=== PATIENT | female | born 1955 | race Caucasian/White ===

== ENCOUNTER → 2018-01-06 13:43 | Outpatient (POV) | payer MEDICAID, SELFPAY | PROVIDERS: Visit Provider Physician Assistant Medical | DX: Z00.00 Encounter for general adult medical examination without abnormal findings (principal) ==

== ENCOUNTER → 2018-11-08 09:07 | Outpatient (POV) | payer MEDICAID, SELFPAY | PROVIDERS: Visit Provider Nurse Practitioner Acute Care | DX: Z00.00 Encounter for general adult medical examination without abnormal findings (principal) ==

== ENCOUNTER 2018-12-27 13:25 | Inpatient (IN) ==
--- NOTE | 2018-12-27 14:34 | Consult Report ---
*Admission Date: 12/27/18 *Chief complaint: Right foot cellulitis, gangrene, DM ulcer *History of present illness: Mrs. Rodriguez is a 63 DM female who came to the office for an evaluation of a toe that has been black with a wound. She states it has been like this for a month, she states the retirement has been using a cream and keeping it bandaged. She came to the ER 12/21/18, had x-rays and wound culture. She has been taking Bactrim since last week at [place]. She reports N/V/C. Review of Systems - Review of Systems Review of systems:: pertinent systems reviewed and negative unless documented below - Constitutional Reports chills, Reports fatigue - Eyes Denies loss of vision - ENT Denies abnormal hearing - *Cardiovascular Denies chest pain - *Respiratory Denies shortness of breath - *Gastrointestinal Reports nausea, Reports vomiting - *Genitourinary Denies abnormal periods - *Musculoskeletal Reports body aches, Reports numbness - Integumentary/Breasts Reports nail changes, Reports skin ulcer, Reports wounds - *Neurologic Reports tingling/numbness/burning sensations, Reports weakness - Psychiatric Denies abnormal sleep pattern - Endocrine Reports cold intolerance - Hematologic/Lymphatic Reports easy bruising [facility] History I have reviewed the patient's past medical history: Yes Medical History: Reports:: Asthma, Atherosclerotic Heart Disease, Depression, Diabetes Mellitus Type 2, Hyperlipidemia, Hypertension, MRSA, Peripheral Vascular Disease, Urinary Tract Infection *Have you ever received a pneumonia vaccine?: Yes *Have you received a flu vaccine this season?: Yes Other Medical History: Reports: Anemia Laterality Cases: Right: Other Other Surgeries: Yes: Cholecystectomy Amputation: Yes (left bka, Right great toe. ) Fractures: No - *Social History Smoking Status: Current every day smoker Tobacco Type: cigarettes Alcohol Intake: never Alcohol Intake Frequency:: other *Occupational Status:: disabled - Psychiatric History Pschychiatric History:: Reports:: Depression Family Hx:: Unable to obtain Meds Home Medications Medication Instructions Recorded Confirmed Type Insulin Lispro [HumaLOG 100 10 units SQ ACHS 06/08/18 12/27/18 History units/mL 3mL vial (SSI)] Lactobacillus acidophilus capsule 10 mg PO DAILY 12/27/18 12/27/18 History azelastine 137 mcg (0.1 %) nasal 1 spray INTRANASAL BID 12/27/18 12/27/18 History spray aerosol carvedilol 3.125 mg tablet 3.125 mg PO BID 12/27/18 12/27/18 History cetirizine 10 mg capsule 10 mg PO DAILY 12/27/18 12/27/18 History citalopram 20 mg tablet 20 mg PO DAILY 12/27/18 12/27/18 History docusate sodium 250 mg capsule 250 mg PO DAILY PRN cap 12/27/18 12/27/18 History ezetimibe 10 mg tablet 10 mg PO DAILY 12/27/18 12/27/18 History ferrous sulfate 325 mg (65 mg 325 mg PO DAILY tab 12/27/18 12/27/18 History iron) tablet fluticasone propionate 110 1 puff INHALATION BID 12/27/18 12/27/18 History mcg/actuation HFA aerosol inhaler fluticasone propionate 50 2 spray INTRANASAL DAILY 12/27/18 12/27/18 History mcg/actuation nasal spray,suspension furosemide 20 mg tablet 20 mg PO DAILY 12/27/18 12/27/18 History gabapentin 100 mg capsule 100 mg PO DAILY 12/27/18 12/27/18 History insulin glargine (U-100) 100 22 unit SQ QHS ml 12/27/18 12/27/18 History unit/mL (3 mL) subcutaneous pen lisinopril 10 mg tablet 10 mg PO DAILY 12/27/18 12/27/18 History montelukast 10 mg tablet 10 mg PO QPM 12/27/18 12/27/18 History multivitamin,os-hrtw-pswxujsl 1 tab PO DAILY 12/27/18 12/27/18 History tablet omeprazole 20 mg capsule,delayed 20 mg PO DAILY 12/27/18 12/27/18 History release simvastatin 40 mg tablet 40 mg PO QHS 12/27/18 12/27/18 History sulfamethoxazole 800 1 tab PO DAILY tab 12/27/18 12/27/18 History mg-trimethoprim 160 mg tablet Allergies Allergy/AdvReac Type Severity Reaction Status Date / Time No Known Allergies Allergy Verified 12/27/18 12:47 Exam - *Routine HEENT Exam Head: Present: normocephalic ENT: Present: mucous membranes dry - *Routine Neck Exam Absent: JVD - *Routine Respiratory Exam Absent: respiratory distress - *Routine Cardiovascular Exam Present: RRR - *Routine Abdominal Exam Present: soft, guarding - *Routine Rectal Exam Patient deferred: visual exam - *Routine Exam Patient deferred: external exam - *Routine Extremities Exam Present: edema, extremity cold to touch, amputation. Absent: pulses intact, normal capillary refill - *Routine Skin Exam Present: erythema, scars, wounds, gangrene - *Routine Neurological Exam Present: alert - Detailed Lower Extremity Exam Comments: Pulses: posterior tibial pulses not present, dorsalis pedis pulses not present. Capillary refill time delayed. Skin temp cool. Right 2nd toe black. Open ulcer noted to dorsal 2nd toe with malodor, purulence, gangrene. Left BKA. Right previous 1, 5th partial ray amputations. Cellulitis noted to 2nd toe and extending proximal to MPJ. Pain to right forefoot. Results - Labs Result Diagrams: 12/27/18 14:49 12/27/18 14:45 Labs: All other labs normal. Assessment and Plan (1) Cellulitis of right foot Current visit: Yes Status: Acute Category: Medical Code(s): L03.115 - Cell ulitis of right lower limb (2) Gangrene of right foot Current visit: Yes Status: Acute Category: Medical Code(s): I96 - Gangrene, not elsewhere classified (3) History of left below knee amputation Current visit: Yes Status: Acute Category: Medical Code(s): Z89.512 - Acquired absence of left leg below knee (4) PAD (peripheral artery disease) Current visit: Yes Status: Acute Category: Medical Code(s): I73.9 - Peripheral vascular disease, unspecified (5) Osteomyelitis of foot, right, acute Current visit: Yes Status: Acute Category: Medical Code(s): M86.171 - Other acute osteomyelitis, right ankle and foot (6) Diabetic foot infection Current visit: No Status: Acute Category: Medical Code(s): E11.628 - Type 2 diabetes mellitus with other skin complications; L08.9 - Local infection of the skin and subcutaneous tissue, unspecified - Assessment and plan all Dx Assessment and Plan for all problems:: 1. Diabetic ulcer of toe of right foot associated with type 2 diabetes mellitus, with necrosis of bone E11.621; L97.514 2. Cellulitis of right foot L03.115 3. Gangrene of toe of right foot I96 4. PAD (peripheral artery disease) I73.9 Infected Wound: right DM ulcer: There was positive drainage and purulence noted. Wound culture obtained 12/21/18 in ER. Debo-wound cellulitis noted. Non-palpable popliteal lymph nodes. Wound needs amputation with surgical debridement. PAD, gangrene: Discussed with the patient the possibility of vascular disease. I explained the difference between macro and micro vascular disease. I explained that macrovascular disease usually involves stenosis or blockage of arteries and requires stenting to open up the vessel to improve circulation. I explained that microvascular disease is much harder to treat because you cannot stent this and it often involves the feet. We discussed how problems with arterial circulation can cause coldness and discoloration to the toes, pain to the digits, delayed healing of wounds, arterial wounds, and gangrene. We discussed how problems with venous circulation can cause fluid retention, swelling, pain and delayed healing of venous wounds. Check vascular studies: PAPA/toe pressures to evaluate for new skin changes PRE-OP AMPUTATION/INFECTION: Radiographs of the right foot were reviewed and discussed with the patient. X- rays show vascular calcifications. Previous 1, 5th partial ray amputations. We discussed conservative versus surgical treatment options. Conservative treatment options include local wound care, oral and IV antibiotics, change in shoe wear, taping/padding, and off-loading. We discussed surgical intervention for amputation of the right 2nd toe vs TMA. Patient understands that the foot may change shape after surgery. Patient also understands that they could have wound healing complications including delayed healing and infection. We discussed that if the wound does not heal, it is possible that they may need a more proximal amputation and could result in further loss of digits, loss of partial foot or loss of leg. We discussed the risks and benefits in great detail. Other surgical risks include: prolonged pain and swelling, further infection requiring oral or IV antibiotics, delay in healing of soft tissue or bone, nerve or blood vessel damage, CRPS/RSD, DVT, anesthesia complications, and even . 1. Dressing applied: betadine dry sterile dressing 2. Discussed plan of care with Dr. Griffith, it 3. Order infection panel: CBC, CMP, ESR, CRP, Ha1c, wound culture, EKG, CXR. 4. e-Rx given for antibiotics: IV Abx 5. NPO after midnight 6. Plan for amputation tomorrow @1300: right I&D, TMA
[2018-12-27 14:57] LABS: Basophils % 0.4 % (0.1-2.0); Eosinophils # 0.3 K/mm3 (0.0-0.4); Eosinophils % 3.9 % (0.1-12.0); Hematocrit 32.2 % (37.0-47.0); Hemoglobin 10.2 g/dL (12.2-16.2); Lymphocytes # 0.7 K/mm3 (0.7-4.5); Lymphocytes % 8.8 % (10-50); Mean Corpuscular HGB Conc 31.7 g/dL (31.8-35.4); Mean Corpuscular Hemoglobin 29.6 pg (27.0-31.2); Mean Corpuscular Volume 93.2 fl (81-99); Mean Platelet Volume 7.9 fl (7.4-10.4); Monocytes # 0.3 K/mm3 (0.1-1.0); Neutrophils % 82.9 % (37.0-80.0); Platelet Count 297 K/mm3 (142-424); Red Blood Count 3.45 M/mm3 (4.20-5.40); Red Cell Distribution Width 13.2 % (11.5-17.5); White Blood Count 8.5 K/mm3 (4.8-10.8)
[2018-12-27 15:18] LABS: Albumin Level 2.6 gm/dL (3.4-5.0); Albumin/Globulin Ratio 0.5 (1.1-1.8); Anion Gap 17.5 mEq/L (5-15); Bilirubin,Total 0.2 mg/dL (0.2-1.0); C-Reactive Protein 2.2 mg/L (0.0-0.9); Calcium 8.6 mg/dL (8.5-10.1); Globulin 4.8 gm/dl (1.3-3.2); Potassium 5.5 mmoL/L (3.5-5.1); Total Protein,Serum 7.4 gm/dL (6.4-8.2)
--- NOTE | 2018-12-27 15:28 | Pharmacy Consult Notes ---
[facility] Pharmacy VTE Monitoring - Patient Demographics Admission date: 12/27/18 Report Date: 12/27/18 Time: 15:27 Allergies/Adverse Reactions: Patient Allergies No Known Allergies Allergy (Verified 12/27/18 12:47) Height: 1.52 m Weight: 79.832 kg Patient Problems: Current Active Problems Cellulitis of right foot (Acute) Gangrene of right foot (Acute) History of left below knee amputation (Acute) PAD (peripheral artery disease) (Acute) Osteomyelitis of foot, right, acute (Acute) - VTE Risk Labs: VTE Related Lab Results Hgb 10.2 g/dL (12.2-16.2) L 12/27/18 14:49 Hct 32.2 % (37.0-47.0) L 12/27/18 14:49 Plt Count 297 K/mm3 (142-424) 12/27/18 14:49 BUN 36 mg/dL (7-18) H 12/27/18 14:45 Creatinine 1.58 mg/dL (0.55-1.02) H 12/27/18 14:45 Estimated Creat Clear 46 mL/min (50-200) 12/27/18 14:45 Clinical Trial Participant: No - Prophylaxis VTE Prophylaxis Ordered?: Yes Types of VTE Prophylaxis: TEDS Knee High
--- NOTE | 2018-12-27 15:45 | Pharmacy Consult Notes ---
- Pharmacy Consult Date: 12/27/18 Time: 15:44 Referring provider: DR. ALLEN Reason for Consult:: VANCOMYCIN DOSING Allergies and ADEs:: Allergies Allergy/AdvReac Type Severity Reaction Status Date / Time No Known Allergies Allergy Verified 12/27/18 12:47 Home Medications:: Home Medications Medication Instructions Recorded Confirmed Type Insulin Lispro [HumaLOG 100 10 units SQ ACHS 06/08/18 12/27/18 History units/mL 3mL vial (SSI)] Lactobacillus acidophilus capsule 10 mg PO DAILY 12/27/18 12/27/18 History azelastine 137 mcg (0.1 %) nasal 1 spray INTRANASAL BID 12/27/18 12/27/18 Hist ory spray aerosol carvedilol 3.125 mg tablet 3.125 mg PO BID 12/27/18 12/27/18 History cetirizine 10 mg capsule 10 mg PO DAILY 12/27/18 12/27/18 History citalopram 20 mg tablet 20 mg PO DAILY 12/27/18 12/27/18 History docusate sodium 250 mg capsule 250 mg PO DAILY PRN cap 12/27/18 12/27/18 History ezetimibe 10 mg tablet 10 mg PO DAILY 12/27/18 12/27/18 History ferrous sulfate 325 mg (65 mg 325 mg PO DAILY tab 12/27/18 12/27/18 History iron) tablet fluticasone propionate 110 1 puff INHALATION BID 12/27/18 12/27/18 History mcg/actuation HFA aerosol inhaler fluticasone propionate 50 2 spray INTRANASAL DAILY 12/27/18 12/27/18 History mcg/actuation nasal spray,suspension furosemide 20 mg tablet 20 mg PO DAILY 12/27/18 12/27/18 History gabapentin 100 mg capsule 100 mg PO DAILY 12/27/18 12/27/18 History insulin glargine (U-100) 100 22 unit SQ QHS ml 12/27/18 12/27/18 History unit/mL (3 mL) subcutaneous pen lisinopril 10 mg tablet 10 mg PO DAILY 12/27/18 12/27/18 History montelukast 10 mg tablet 10 mg PO QPM 12/27/18 12/27/18 History multivitamin,ir-gjpc-[id number] 1 tab PO DAILY 03/11/19 03/11/19 History tablet omeprazole 20 mg capsule,delayed 20 mg PO DAILY 12/27/18 12/27/18 History release simvastatin 40 mg tablet 40 mg PO QHS 12/27/18 12/27/18 History sulfamethoxazole 800 1 tab PO DAILY tab 12/27/18 12/27/18 History mg-trimethoprim 160 mg tablet Height: 1.52 m Weight: 79.832 kg Laboratory Results:: Laboratory Results - last 24 hr 12/27/18 14:45: Sodium 127 L, Potassium 5.5 H, Chloride 96 L, Carbon Dioxide 19 L, Anion Gap 17.5 H, BUN 36 H, Creatinine 1.58 H, Estimated Creat Clear 46, Estimated GFR 33 L, Est GFR ( Amer) 40 L, Glucose 193 H, Calcium 8.6, Total Bilirubin 0.2, AST 20, ALT 8 L, Alkaline Phosphatase 140 H, C-Reactive Protein 2.2 H, Total Protein 7.4, Albumin 2.6 L, Globulin 4.8 H, Albumin/Globulin Ratio 0.5 L 12/27/18 14:49: WBC 8.5, RBC 3.45 L, Hgb 10.2 L, Hct 32.2 L, MCV 93.2, MCH 29.6, MCHC 31.7 L, RDW 13.2, Plt Count 297, MPV 7.9, Neut % (Auto) 82.9 H, Lymph % (Auto) 8.8 L, [place] % (Auto) 4.0, Eos % (Auto) 3.9, Baso % (Auto) 0.4, Neut # (Auto) 7.0, Lymph # (Auto) 0.7, [place] # (Auto) 0.3, Eos # (Auto) 0.3, Baso # (Auto) 0.0 12/27/18 14:49: Hemoglobin A1c 7.4 H Medical History: Reports:: Asthma, Atherosclerotic Heart Disease, Depression, Diabetes Mellitus Type 2, Hyperlipidemia, Hypertension, MRSA, Peripheral Vascular Disease, Urinary Tract Infection Assessment and Plan (1) Cellulitis of right foot Current visit: Yes Status: Acute Category: Medical Code(s): L03.115 - Ce llulitis of right lower limb (2) Gangrene of right foot Current visit: Yes Status: Acute Category: Medical Code(s): I96 - Gangrene, not elsewhere classified (3) History of left below knee amputation Current visit: Yes Status: Acute Category: Medical Code(s): Z89.512 - Acquired absence of left leg below knee (4) PAD (peripheral artery disease) Current visit: Yes Status: Acute Category: Medical Code(s): I73.9 - Peripheral vascular disease, unspecified (5) Osteomyelitis of foot, right, acute Current visit: Yes Status: Acute Category: Medical Code(s): M86.171 - Other acute osteomyelitis, right ankle and foot (6) Diabetic foot infection Current visit: No Status: Acute Category: Medical Code(s): E11.628 - Type 2 diabetes mellitus with other skin complications; L08.9 - Local infection of the skin and subcutaneous tissue, unspecified - Assessment and plan all Dx Assessment and Plan for all problems:: BASED ON PATIENT FACTORS, RECOMMEND VANCOMYCIN 1 GM IV ONCE TODAY, THEN VANCOMYCIN 1250 MG IV Q36H BEGINNING TOMORROW AT 1215 FOR PRE-OP. PHARMACY WILL FOLLOW DAILY AND ADJUST APPROPRIATE.
--- NOTE | 2018-12-27 16:33 | History & Physical Report ---
*Admission Date: 12/27/18 <Kiera Spencer - 12/27/18 16:33> *Chief complaint: Infection of right toe <Kiera Spencer - 12/27/18 16:33> *History of present illness: Mrs. Rodriguez is a 63 female with a complex history to include type 2 diabetes mellitus hyperlipidemia, diabetic retinopathy, diabetic nephropathy, peripheral vascular disease diastolic heart failure, left central retinal artery occlusion, anemia, hypertension, GERD, multiple allergies, and NSTEMI, GAVE, and environme ntal allergies who developed a wound on the second toe of her right foot approximately a month ago. She has been followed by the wound care nurse practitioner in the [facility] where she resides. She was started on Bactrim 12/21/2018 and was sent to the emergency room for further evaluation. The facility continued with wound care and the antibiotic. Since being on the antibiotic she has had some nausea, vomiting and constipation. Her bowels last moved yesterday. Appointment has been arranged with Dr. Heath who saw her in her office today for evaluation of the toe. Assessment was as follows: Pulses: posterior tibial pulses not present, dorsalis pedis pulses not present. Capillary refill time delayed. Skin temp cool. Right 2nd toe black. Open ulcer noted to dorsal 2nd toe with malodor, purulence, gangrene. Left BKA. Right previous 1, 5th partial ray amputations. Cellulitis noted to 2nd toe and extending proximal to MPJ. Pain to right forefoot. Dr. Griffith was notified and patient was directly admitted to second floor for ongoing care with plans for surgical amputation of the toe and debridement. At the time of this exam patient is describing some abdominal cramping and nausea. Cultures completed in the emergency room on 12/21/2018 revealed for organisms: Proteus mirabilis, Klebsiella pneumoniae, enterococcus faecalis and aeroccus viridans for which patient was started on the Bactrim. <Kiera Spencer - 12/27/18 17:59> [facility] History Medical History: Reports:: Asthma, Atherosclerotic Heart Disease, Congestive Heart Failure, Coronary Artery Disease, Depression, Diabetes Mellitus Type 2, Gastroesophageal Reflux Disease(GERD), Gastrointestinal Bleed, Hyperlipidemia, Hypertension, MRSA, Myocardial Infarction, Peripheral Artery Disease, Peripheral Vascular Disease, Urinary Tract Infection <Kiera Spencer - 12/27/18 17:50> *Have you ever received a pneumonia vaccine?: Yes <Kiera Spencer Geoffrey 12/27/18 16:33> *Have you received a flu vaccine this season?: Yes <SpencerKiera 12/27/18 16:33> Other Medical History: Reports: Anemia, Cataracts <SpencerKiera 12/27/18 17:50> Laterality Cases: Right: Cataract, Other <Spencer,Kiera 12/27/18 17:50> Other Surgeries: Yes: Cardiac Catheterization, Cholecystectomy, Colonoscopy <SpencerKiera 12/27/18 17:50> Amputation: Yes (left bka, Right great toe. ) <Spencer,Kiera 12/27/18 16:33> Fractures: No <Spencer,Kiera 12/27/18 16:33> - *Social History Educational Level: Attended High School <Spencer,Kiera 12/27/18 16:33> Smoking Status: Never smoker <TjKiera 12/27/18 17:50> Alcohol Intake: never <SpencerKiera 12/27/18 16:33> Alcohol Intake Frequency:: other <SpencerKiera 12/27/18 16:33> *Occupational Status:: disabled <Spencer,Kiera 12/27/18 16:33> Housing: residential <SpencerKiera 12/27/18 16:33> Household Members: other <SpencerKiera 12/27/18 16:33> *Travel in the last 8 weeks: None <TjKiera 12/27/18 16:33> - Psychiatric History Expresses thoughts of harming self/others: None <Spencer,Kiera 12/27/18 16:33> Suicide Plan Description: No Plan <TjKiera 12/27/18 16:33> Pschychiatric History:: Reports:: Depression <Kiera Spencer 12/27/18 16:33> Family Hx:: Unable to obtain, Coronary Artery Disease, Heart Attack <Kiera Spencer 12/27/18 17:50> Review of Systems - Constitutional Denies fever(s) <Kiera Spencer 12/27/18 17:50> - Eyes Reports dry eyes <Kiera Spencer 12/27/18 17:50> - ENT Denies ear pain, Denies sore throat <SpencerKiera 12/27/18 17:50> - *Cardiovascular Denies chest pain, Denies shortness of breath, Denies irregular heart rhythm <Kiera Spencer 12/27/18 17:50> - *Respiratory Reports chest congestion (Thinks she is wheezing) <SpencerKiera 12/27/18 17:50> - *Gastrointestinal Reports abdominal pain (Cramping), Reports cramping, Reports heartburn, Reports nausea, Reports vomiting <SpencerKiera 12/27/18 17:50> - *Genitourinary Denies difficulty urinating <SpencerKiera 12/27/18 17:50> - *Musculoskeletal Reports joint pain, Reports muscle weakness <[facility] 12/27/18 17:50> Comments: Wound on right second toe. She does get up almost daily into the wheelchair at [facility]. She does not walk <SpencerKiera 12/27/18 17:50> - *Neurologic Reports numbness, Reports tingling/numbness/burning sensations, Reports we akness, Denies abnormal hearing, Denies loss of vision <Kiera Spencer 12/27/18 16:33> Meds Home Medications Medication Instructions Recorded Confirmed Type Insulin Lispro [HumaLOG 100 10 units SQ ACHS 06/08/18 12/27/18 History units/mL 3mL vial (SSI)] Lactobacillus acidophilus capsule 10 mg PO DAILY 12/27/18 12/27/18 History azelastine 137 mcg (0.1 %) nasal 1 spray INTRANASAL BID 12/27/18 12/27/18 History spray aerosol carvedilol 3.125 mg tablet 3.125 mg PO BID 12/27/18 12/27/18 History cetirizine 10 mg capsule 10 mg PO DAILY 12/27/18 12/27/18 History citalopram 20 mg tablet 20 mg PO DAILY 12/27/18 12/27/18 History docusate sodium 250 mg capsule 250 mg PO DAILY PRN cap 12/27/18 12/27/18 H istory ezetimibe 10 mg tablet 10 mg PO DAILY 12/27/18 12/27/18 History ferrous sulfate 325 mg (65 mg 325 mg PO DAILY tab 12/27/18 12/27/18 History iron) tablet fluticasone propionate 110 1 puff INHALATION BID 12/27/18 12/27/18 History mcg/actuation HFA aerosol inhaler fluticasone propionate 50 2 spray INTRANASAL DAILY 12/27/18 12/27/18 History mcg/actuation nasal spray,suspension furosemide 20 mg tablet 20 mg PO DAILY 12/27/18 12/27/18 History gabapentin 100 mg capsule 100 mg PO DAILY 12/27/18 12/27/18 History insulin glargine (U-100) 100 22 unit SQ QHS ml 12/27/18 12/27/18 History unit/mL (3 mL) subcutaneous pen lisinopril 10 mg tablet 10 mg PO DAILY 12/27/18 12/27/18 History montelukast 10 mg tablet 10 mg PO QPM 12/27/18 12/27/18 History multivitamin,zx-qtdd-hiyhvrmd 1 tab PO DAILY 12/27/18 12/27/18 History tablet omeprazole 20 mg capsule,delayed 20 mg PO DAILY 12/27/18 12/27/18 History release simvastatin 40 mg tablet 40 mg PO QHS 12/27/18 12/27/18 History sulfamethoxazole 800 1 tab PO DAILY tab 12/27/18 12/27/18 History mg-trimethoprim 160 mg tablet <Abhijit Griffith - 12/27/18 18:18> Allergies Allergy/AdvReac Type Severity Reaction Status Date / Time No Known Allergies Allergy Verified 12/27/18 12:47 <Abhijit Griffith - 12/27/18 18:18> Exam Vital signs and Labs for Last 24 Hours: Temp Pulse Resp BP Pulse Ox 98.0 F 64 18 141/74 H 94 L 12/27/18 17:08 12/27/18 17:08 12/27/18 17:08 12/27/18 17:08 12/27/18 17:08 Laboratory Results - last 24 hr 12/27/18 14:45: Sodium 127 L, Potassium 5.5 H, Chloride 96 L, Carbon Dioxide 19 L, Anion Gap 17.5 H, BUN 36 H, Creatinine 1.58 H, Estimated Creat Clear 46, Estimated GFR 33 L, Est GFR ( Amer) 40 L, Glucose 193 H, Calcium 8.6, Total Bilirubin 0.2, AST 20, ALT 8 L, Alkaline Phosphatase 140 H, C-Reactive Protein 2.2 H, Total Protein 7.4, Albumin 2.6 L, Globulin 4.8 H, Albumin/Globulin Ratio 0.5 L 12/27/18 14:49: WBC 8.5, RBC 3.45 L, Hgb 10.2 L, Hct 32.2 L, MCV 93.2, MCH 29.6, MCHC 31.7 L, RDW 13.2, Plt Count 297, MPV 7.9, Neut % (Auto) 82.9 H, Lymph % ( Auto) 8.8 L, Benton % (Auto) 4.0, Eos % (Auto) 3.9, Baso % (Auto) 0.4, Neut # (Auto) 7.0, Lymph # (Auto) 0.7, Benton # (Auto) 0.3, Eos # (Auto) 0.3, Baso # (Auto) 0.0 12/27/18 14:49: Hemoglobin A1c 7.4 H 12/27/18 16:40: ESR 106 H <Abhijit Griffith - 12/27/18 18:18> Laboratory Results - last 24 hr 12/27/18 14:45: Sodium 127 L, Potassium 5.5 H, Chloride 96 L, Carbon Dioxide 19 L, Anion Gap 17.5 H, BUN 36 H, Creatinine 1.58 H, Estimated Creat Clear 46, Estimated GFR 33 L, Est GFR ( Amer) 40 L, Glucose 193 H, Calcium 8.6, Total Bilirubin 0.2, AST 20, ALT 8 L, Alkaline Phosphatase 140 H, C-Reactive Protein 2.2 H, Total Protein 7.4, Albumin 2.6 L, Globulin 4.8 H, Albumin/Globulin Ratio 0.5 L 12/27/18 14:49: WBC 8.5, RBC 3.45 L, Hgb 10.2 L, Hct 32.2 L, MCV 93.2, MCH 29.6, MCHC 31.7 L, RDW 13.2, Plt Count 297, MPV 7.9, Neut % (Auto) 82.9 H, Lymph % (Auto) 8.8 L, Benton % (Auto) 4.0, Eos % (Auto) 3.9, Baso % (Auto) 0.4, Neut # (Auto) 7.0, Lymph # (Auto) 0.7, Benton # (Auto) 0.3, Eos # (Auto) 0.3, Baso # (Auto) 0.0 12/27/18 14:49: Hemoglobin A1c 7.4 H <Kiera Spencer - 12/27/18 17:50> I & O for Last 24 hours: Intake & Output 12/25/18 12/26/18 12/27/18 12/28/18 10:59 11:59 11:59 11:59 Intake Total 240 / 240 Balance 240 / 240 Weight 176 lb <Abhijit Griffith - 12/27/18 18:18> Intake & Output 12/25/18 12/26/18 12/27/18 12/28/18 10:59 11:59 11:59 11:59 Weight 176 lb <TjKiera - 12/27/18 16:33> Radiology Reports for the Last 24 Hours: 12/21/2018 x-ray of the right foot FINDINGS: No previous studies are available for comparison. There is diffuse osteopenia. There has been amputation at the mid aspect of the first metatarsal and mid aspect of the fifth metatarsal. There is diffuse vascular calcification. There is a linear metallic radio opaque foreign body which measures 1 cm along the dorsal aspect of the foot between the distal aspect of the third and fourth metatarsals consistent with a needle representing a foreign body. No obvious bony destructive process evident. IMPRESSION: 1. Prior amputation at the first and fifth metatarsals with diffuse osteopenia and vascular calcification. 2. Metallic foreign body along the dorsal aspect of the foot between the third and fourth metatarsals which may represent a needle 12/27/2018 chest x-ray IMPRESSION: Dense consolidation in both lower lobes consistent with pneumonia with possible small effusions <Kiera Spencer - 12/27/18 17:50> - Constitutional no acute distress <Kiera Spencer - 12/27/18 17:50> Comments: She is alert and oriented sitting up in the bed trying to find her cowboy show on television. She appears comfortable. She is conversant <Kiera Spencer - 12/27/18 17:50> - *Routine HEENT Exam Head: Present: normocephalic, atraumatic <[facility] 12/27/18 17:50> Eye: Present: PERRL. Absent: conjunctival icterus, scleral injection, conjunctivae pink <Spencer,[facility] 12/27/18 17:50> ENT: Present: mucous membranes moist, oropharynx clear <Spencer,[facility] 12/27/18 17:50> - *Routine Neck Exam Present: supple. Absent: carotid bruit, lymphadenopathy, thyromegaly <[facility] 12/27/18 17:50> - *Routine Respiratory Exam Present: CTA bilaterally (Anteriorly and posteriorly. No wheezing. Good bilateral air exchange.). Absent: wheezes <Spencer,[facility] 12/27/18 17:50> - *Routine Cardiovascular Exam Present: RRR, murmur <Spencer,[facility] 12/27/18 17:50> - *Routine Abdominal Exam Present: soft, normoactive bowel sounds, tenderness (Mildly tender in the mid abdomen). Absent: guarding <Spencer,[facility] 12/27/18 17:50> - *Routine Extremities Exam Present: edema (Trace in right lower extremity.) <Spencer,[facility] 12/27/18 17:50> - *Routine Skin Exam Comments: Dressing on right foot clean and dry <[facility] 12/27/18 17:50> - *Routine Neurological Exam Present: alert, oriented X3 [facility] 17[facility]50> Assessment and Plan (1) Cellulitis of right foot Current visit: Yes Status: Acute Category: Medical Code(s): L03.115 - Cellulitis of right lower limb (2) Gangrene of right foot Current visit: Yes Status: Acute Category: Medical Code(s): I96 - Gangrene, not elsewhere classified (3) History of left below knee amputation Current visit: Yes Status: Acute Category: Medical Code(s): Z89.512 - Acquired absence of left leg below knee (4) PAD (peripheral artery disease) Current visit: Yes Status: Acute Category: Medical Code(s): I73.9 - Peripheral vascular disease, unspecified (5) Osteomyelitis of foot, right, acute Current visit: Yes Status: Acute Category: Medical Code(s): M86.171 - Other acute osteomyelitis, right ankle and foot (6) Diabetic foot infection Current visit: No Status: Acute Category: Medical Code(s): E11.628 - Type 2 diabetes mellitus with other skin complications; L08.9 - Local infection of the skin and subcutaneous tissue, unspecified (7) Diabetic retinopathy Current visit: Yes Status: Chronic Category: Medical Code(s): E11.319 - Type 2 diabetes mellitus with unspecified diabetic retinopathy without macular edema (8) Diabetic nephropathy Current visit: Yes Status: Chronic Category: Medical Code(s): E11.21 - Type 2 diabetes mellitus with diabetic nephropathy (9) GERD (gastroesophageal reflux disease) Current visit: Yes Status: Chronic Category: Medical Code(s): K21.9 - Gastro-esophageal reflux disease without esophagitis (10) GAVE (gastric antral vascular ectasia) Current visit: Yes Status: Chronic Category: Medical Code(s): K31.819 - Angiodysplasia of stomach and duodenum without bleeding (11) Cardiovascular disease Current visit: Yes Status: Chronic Category: Medical Code(s): I25.10 - Atherosclerotic heart disease of [place] coronary artery without angina pectoris (12) Anemia Current visit: Yes Status: Chronic Category: Medical Code(s): D64.9 - Anemia, unspecified (13) Hypertension Current visit: Yes Status: Chronic Category: Medical Code(s): I10 - Essential (primary) hypertension (14) Depression Current visit: Yes Status: Chronic Category: Medical Code(s): F32.9 - Major depressive disorder, single episode, unspecified (15) Environmental allergies Current visit: Yes Status: Chronic Category: Medical Code(s): Z91.09 - Other allergy status, other than to drugs and biological substances (16) Diastolic heart failure Current visit: Yes Status: Chronic Category: Medical Code(s): I50.30 - Unspecified diastolic (congestive) heart failure <Kiera Spencer - 12/27/18 17:58> (1) Gangrene of right foot Current visit: Yes Status: Acute Category: Medical Code(s): I96 - Gangrene, not elsewhere classified (2) Pneumonia Current visit: Yes Status: Acute Category: Medical Code(s): J18.9 - Pneumonia, unspecified organism (3) Cellulitis of right foot Current visit: Yes Status: Acute Category: Medical Code(s): L03.115 - Cellulitis of right lower limb (4) Diabetic foot infection Current visit: No Status: Acute Category: Medical Code(s): E11.628 - Type 2 diabetes mellitus with other skin complications; L08.9 - Local infection of the skin and subcutaneous tissue, unspecified (5) Osteomyelitis of foot, right, acute Current visit: Yes Status: Acute Category: Medical Code(s): M86.171 - Other acute osteomyelitis, right ankle and foot (6) PAD (peripheral artery disease) Current visit: Yes Status: Acute Category: Medical Code(s): I73.9 - Peripheral vascular disease, unspecified (7) History of left below knee amputation Current visit: Yes Status: Acute Category: Medical Code(s): Z89.512 - Acquired absence of left leg below knee (8) Diabetic nephropathy Current visit: Yes Status: Chronic Category: Medical Code(s): E11.21 - Type 2 diabetes mellitus with diabetic nephropathy (9) GERD (gastroesophageal reflux disease) Current visit: Yes Status: Chronic Category: Medical Code(s): K21.9 - Gastro-esophageal reflux disease without esophagitis (10) Diabetic retinopathy Current visit: Yes Status: Chronic Category: Medical Code(s): E11.319 - Type 2 diabetes mellitus with unspecified diabetic retinopathy without macular edema (11) GAVE (gastric antral vascular ectasia) Current visit: Yes Status: Chronic Category: Medical Code(s): K31.819 - Angiodysplasia of stomach and duodenum without bleeding (12) Cardiovascular disease Current visit: Yes Status: Chronic Category: Medical Code(s): I25.10 - Atherosclerotic heart disease of [place] coronary artery without angina pectoris (13) Hypertension Current visit: Yes Status: Chronic Category: Medical Code(s): I10 - Essential (primary) hypertension (14) Depression Current visit: Yes Status: Chronic Category: Medical Code(s): F32.9 - Major depressive disorder, single episode, unspecified (15) Environmental allergies Current visit: Yes Status: Chronic Category: Medical Code(s): Z91.09 - Other allergy status, other than to drugs and biological substances (16) Diastolic heart failure Current visit: Yes Status: Chronic Category: Medical Code(s): I50.30 - Unspecified diastolic (congestive) heart failure (17) Chronic anemia Current visit: Yes Status: Acute Category: Medical Code(s): D64.9 - Anemia, unspecified <Abhijit Griffith - 12/27/18 18:18> - Assessment and plan all Dx Assessment and Plan for all problems:: Patient seen and admitted at request of Dr. Heath who has requested admission for toe amputation related to gangrenous foot ulcer. She has known PAD and previous amputations. Admssion w/u remarkable for NA of 127, K+ of 5.5 and CXR showing bilateral pneumonia although she is asymptomatic. Will obtain sputum culture and repeat 2 view CXR. <Abhijit Griffith - 12/27/18 18:18> Dr. Heath has placed her on Invanz and vancomycin. Plan is for surgery in the a.m. We will start most of her home meds and give Zofran for her nausea. Will start sliding scale as well. CXR revealed a possible pneumonia althought pt's chest sounds clear. Will also start duonebs and recheck CXR with PA and Lateral <Kiera Spencer - 12/27/18 17:59>
[2018-12-28 05:58] LABS: Basophils % 0.5 % (0.1-2.0); Eosinophils # 0.3 K/mm3 (0.0-0.4); Eosinophils % 4.3 % (0.1-12.0); Hematocrit 31.2 % (37.0-47.0); Hemoglobin 9.9 g/dL (12.2-16.2); Lymphocytes # 0.7 K/mm3 (0.7-4.5); Lymphocytes % 8.7 % (10-50); Mean Corpuscular HGB Conc 31.7 g/dL (31.8-35.4); Mean Corpuscular Hemoglobin 28.7 pg (27.0-31.2); Mean Corpuscular Volume 90.4 fl (81-99); Mean Platelet Volume 7.6 fl (7.4-10.4); Monocytes # 0.4 K/mm3 (0.1-1.0); Monocytes % 5.5 % (1.7-9.3); Neutrophils # 6.3 K/mm3 (1.8-7.8); Platelet Count 312 K/mm3 (142-424); Red Blood Count 3.46 M/mm3 (4.20-5.40); Red Cell Distribution Width 13.4 % (11.5-17.5); White Blood Count 7.7 K/mm3 (4.8-10.8)
[2018-12-28 06:01] LABS: Anion Gap 13.8 mEq/L (5-15); Calcium 9.1 mg/dL (8.5-10.1); Potassium 5.8 mmoL/L (3.5-5.1)
--- NOTE | 2018-12-28 09:37 | Progress Note ---
Subjective Date: 12/28/18 Time: 08:55 Principal diagnosis: R 2nd toe gangrene, PAD, cellulitis, osteomyelitis Interval history: Patient laying in bed, complaining of continued nausea. PN: Obj Ex Vital signs: Temp Pulse Resp BP Pulse Ox 97.7 F 65 18 135/64 95 12/28/18 08:00 12/28/18 08:00 12/28/18 08:00 12/28/18 08:00 12/28/18 08:00 - Constitutional chronically ill appearing, disheveled - Routine HEENT Exam Head: Present: normocephalic - Routine Neck Exam Present: supple - Routine Respiratory Exam Absent: respiratory distress - Routine Extremities Exam Present: edema, extremity cold to touch. Absent: pulses intact, normal capillary refill - Detailed Lower Extremity Exam Comments: Pulses: posterior tibial pulses not present, dorsalis pedis pulses not present. Capillary refill time delayed. Skin temp cool. Right 2nd toe black. Open ulcer noted to dorsal 2nd toe with malodor, purulence, gangrene. Left BKA. Right previous 1, 5th partial ray amputations. Cellulitis noted to 2nd toe and extending proximal to MPJ. Pain to right forefoot. Progress Note: A&P (1) Gangrene of right foot Status: Acute Current Visit: Yes (2) Pneumonia Status: Acute Current Visit: Yes (3) Cellulitis of right foot Status: Acute Current Visit: Yes (4) Diabetic foot infection Status: Acute Current Visit: No (5) Osteomyelitis of foot, right, acute Status: Acute Current Visit: Yes (6) PAD (peripheral artery disease) Status: Acute Current Visit: Yes (7) History of left below knee amputation Status: Acute Current Visit: Yes (8) Diabetic nephropathy Status: Chronic Current Visit: Yes (9) GERD (gastroesophageal reflux disease) Status: Chronic Current Visit: Yes (10) Diabetic retinopathy Status: Chronic Current Visit: Yes (11) GAVE (gastric antral vascular ectasia) Status: Chronic Current Visit: Yes (12) Cardiovascular disease Status: Chronic Current Visit: Yes (13) Hypertension Status: Chronic Current Visit: Yes (14) Depression Status: Chronic Current Visit: Yes (15) Environmental allergies Status: Chronic Current Visit: Yes (16) Diastolic heart failure Status: Chronic Current Visit: Yes (17) Chronic anemia Status: Acute Current Visit: Yes Assessment and Plan for All Diagnoses:: 1. Diabetic ulcer of toe of right foot associated with type 2 diabetes mellitus, with necrosis of bone E11.621; L97.514 2. Cellulitis of right foot L03.115 3. Gangrene of toe of right foot I96 4. PAD (peripheral artery disease) I73.9 Infected Wound: right DM ulcer: There was positive drainage and purulence noted. Wound culture obtained 12/21/18 in ER. Debo-wound cellulitis noted. Non-palpable popliteal lymph nodes. Wound needs amputation with surgical debridement. PAD, gangrene: PAPA/toe pressures 12/27/18: IMPRESSION: The right PAPA is 1.45 which is elevated consistent with vascular calcification. The vessels in the thigh and the dorsalis pedis are noncompressible. Left PAPA not performed. Prior [id number] amputation on the left. The thigh brachial index is 0.4 consistent with stenosis in either the aorta, left iliac, or left femoral artery. PRE-OP AMPUTATION/INFECTION: Radiographs of the right foot were reviewed and discussed with the patient. X- rays show vascular calcifications. Previous 1, 5th partial ray amputations. We discussed conservative versus surgical treatment options. Conservative treatment options include local wound care, oral and IV antibiotics, change in shoe wear, taping/padding, and off-loading. We discussed surgical intervention for amputation of the right 2nd toe vs TMA. Patient understands that the foot may change shape after surgery. Patient also understands that they could have wound healing complications including delayed healing and infection. We discussed that if the wound does not heal, it is possible that they may need a more proximal amputation and could result in further loss of digits, loss of partial foot or loss of leg. We discussed the risks and benefits in great detail. Other surgical risks include: prolonged pain and swelling, further infection requiring oral or IV antibiotics, delay in healing of soft tissue or bone, nerve or blood vessel damage, CRPS/RSD, DVT, anesthesia complications, and even . 1. Dressing applied: betadine dry sterile dressing 2. Discussed plan of care with Harry Akins (Dr. Martell will see patient when he is back on Thursday. Okay to proceed with amputation and cardio will access and do re-vacs as needed after) 3. IV Abx: Invanz, Vanco 4. NPO after midnight 5. Plan for amputation today @1300: right I&D, TMA
--- NOTE | 2018-12-28 13:58 | Progress Note ---
[facility] Anesthesia Checklist - Structural Data Admitted From: Inpatient Planned Operative Procedure/s: toe amputation Consent for Planned Operative Procedure(s) Verified: Yes - Airway Assessment C-Spine Mobility Assessed: Yes TMJ Mobility Assessed: Yes Dentition: Edentulous - Neurological Assessment Level of Consciousness: Awake, Alert, Appropriate - Anesthesia Plan Anesthesia Risk discussed: Yes Anesthesia Plan: Verified ASA Class: III Anesthesia Type: General [facility] History I have reviewed the patient's past medical history: Yes Medical History: Reports:: Asthma, Atherosclerotic Heart Disease, Congestive Heart Failure, Coronary Artery Disease, Depression, Diabetes Mellitus Type 2, Gastroesophageal Reflux Disease(GERD), Gastrointestinal Bleed, Hyperlipidemia, Hypertension, MRSA, Myocardial Infarction, Peripheral Artery Disease, Peripheral Vascular Disease, Urinary Tract Infection *Have you ever received a pneumonia vaccine?: Yes *Have you received a flu vaccine this season?: Yes Other Medical History: Reports: Anemia, Cataracts Laterality Cases: Right: Cataract, Other Other Surgeries: Yes: Cardiac Catheterization, Cholecystectomy, Colonoscopy Amputation: Yes (left bka, Right great toe. ) Fractures: No - *Social History Educational Level: Attended High School Smoking Status: Never smoker Tobacco Type: cigarettes Alcohol Intake: never Alcohol Intake Frequency:: other *Occupational Status:: disabled Housing: snf Household Members: other *Travel in the last 8 weeks: None - Psychiatric History Expresses thoughts of harming self/others: None Suicide Plan Description: No Plan Pschychiatric History:: Reports:: Depression Family Hx:: Unable to obtain, Coronary Artery Disease, Heart Attack
--- NOTE | 2018-12-28 14:44 | Operative Note ---
Date of procedure: 12/28/18 Pre-op Diagnosis:: 1. Diabetic ulcer of toe of right foot associated with type 2 diabetes mellitus, with necrosis of bone E11.621; L97.514 2. Cellulitis of right foot L03.115 3. Gangrene of toe of right foot I96 4. Right foot foreign body 5. PAD (peripheral artery disease) I73.9 6. Left BKA Post-op Diagnosis:: 1. Diabetic ulcer of toe of right foot associated with type 2 diabetes mellitus, with necrosis of bone E11.621; L97.514 2. Cellulitis of right foot L03.115 3. Gangrene of toe of right foot I96 4. Right foot foreign body 5. PAD (peripheral artery disease) I73.9 6. Left BKA Procedure performed:: 1. Right foot incision and drainage 2. Right foot foreign body excision 3. Right transmetatarsal amputation Surgeon:: Akila Heath DPM VISUAL AID EXPERT:: Nirmal Higgins Anesthesia: LMA Estimated blood loss (mL): 5 Clinical Note:: PRE-OP AMPUTATION/INFECTION: Radiographs of the right foot were reviewed and discussed with the patient. X- rays show vascular calcifications. Previous 1, 5th partial ray amputations. We discussed conservative versus surgical treatment options. Conservative treatment options include local wound care, oral and IV antibiotics, change in shoe wear, taping/padding, and off-loading. We discussed surgical intervention for amputation of the right 2nd toe vs TMA. Patient understands that the foot may change shape after surgery. Patient also understands that they could have wound healing complications including delayed healing and infection. We discussed that if the wound does not heal, it is possible that they may need a more proximal amputation and could result in further loss of digits, loss of partial foot or loss of leg. We discussed the risks and benefits in great detail. Other surgical risks include: prolonged pain and swelling, further infection requiring oral or IV antibiotics, delay in healing of soft tissue or bone, nerve or blood vessel damage, CRPS/RSD, DVT, anesthesia complications, and even . Discussed plan of care with Harry Akins (Dr. Martell will see patient when he is back on Thursday. Okay to proceed with amputation and cardio will access and do re-vacs as needed after). IV Abx: David Sheriff. Plan for amputation today: right I&D, TMA. Operative findings:: Gangrenous right second toe ulcer over the dorsal PIPJ. Edema and erythema n oted from the second digit to the distal metatarsals. Previous first and fifth partial ray resections. Necrotic second toe bone. Foreign body sewing needle on the dorsal soft tissue over the third metatarsal. No bleeding after I&D and 2nd toe amp. Minimal bleeding at TMA level. High risk for more proximal amputation. Operative note:: On this date and time patient was deemed an appropriate surgical candidate. With informed consent signed, the patient was taken to the operating theater. The patient was positioned supine. LMA anesthesia was induced. No tourniquet used. Right foot incision and drainage: Intraoperative fluoroscopy was utilized to check and marked out the metatarsal parabola. The right lower extremity was prepped and draped in normal sterile fashion. Previous left BKA and right 1, 5th partial ray amputations noted. There were gangrenous changes noted to the second toe extending from the distal to proximal phalanx. There was skin sloughing noted with dusky discoloration noted sub-first MPJ. Cellulitis noted extending to the MPJs dorsally. A fish mouth incision was mapped out. Utilizing a 15 blade dissection was carried down sharply to the level of the bone around the proximal phalanx bases, which were disarticulated from the metatarsals. There was purulence noted. Necrotic tissue sharply debrided. Right foot foreign body excision: At this point blunt dissection was utilized to separate the planes over the third and fourth metatarsals. A foreign body, sewing needle was identified and removed from the patient in total. Attention was then directed back to the bones. Right transmetatarsal amputation: The second proximal phalanx bone was soft and crumbly and had a malodor to it. Portion of it was cut and sent for bone culture and the other part was sent for bone biopsy for pathology. Attention was then directed to the metatarsals. Utilizing power resection the metatarsal heads 2-4 were transected. A piece of the second, third and fourth metatarsals were sent as bone cultures. The metatarsals looked necrotic distally,m but proximal at resection site looked within normal limits, bone hard, no obvious signs of osteomyelitis noted. Next 3 L of bacitracin irrigation was used to flush the wound with pulse lavage. The wound was reexplored and no further signs of infection noted. At this point the double-ended rasp was used to smooth down the edges of the bone so that there were no sharp prominences. Bleeding controlled. No vessels were ligated with electrocautery, as there was minimal bleeding. 3-0 Prolene was used to close skin in an interrupted simple suture fashion. Ezequiel were used to reinforce the skin closure. The wounds were cleansed. Betadine soaked Xeroform and dry sterile dressing was then applied to the right foot. The patient was awoken from anesthesia and transferred to recovery with vital signs stable and neurovascular status intact. Materials: 3-0 Prolene Skin ezequiel Discharge/Plan: Transfer back to the floor. Patient is to maintain dressing clean dry and intact. Continue IV antibiotics. Non weight bearing to the right lower extremity with wheelchair. Obtain post op films, right foot, 3 views. Plan for bedside dressing change tomorrow. Tourniquet time (min): 0 Condition: stable Disposition: floor Specimens:: 1. Right 2nd toe bone culture 2. Right 2nd toe bone path 3. Right 2nd met bone culture 4. Right 3rd met bone culture 4. Right 4th met bone culture Complications:: None
--- NOTE | 2018-12-28 15:52 | Progress Note ---
[facility] Anesthesia Record Part II Discharge Time: 16:15 Destination: 2nd floor PACU nurse assessment reviewed?: Yes Patient Condition:: Good Anesthesia Complications:: None Swallowing reflex intact?: Yes Cyanosis?: No
--- NOTE | 2018-12-28 15:52 | Progress Note ---
[facility] Anesthesia Record Part I Intake, IV Amount: 600 Estimated blood loss (mL): 10 Urine output (mL): 0 Blood Pressure: 132/61 SaO2: 95 Pulse Rate: 65 Respiratory Rate: 16 Temperature: 97.6 F Patient is:: Drowsy, Stable Stable to PACU at:: 15:45
--- NOTE | 2018-12-28 18:41 | Progress Note ---
Internal Medicine - PN: Subj *Date: 12/28/18 *Time: 18:38 Interval history: Patient seen this AM prior to surgery and again at this time after arrival back to floor post op. SHe is awake now but drowsy. No unusual complaints. Blood sugar was low pre-op but normal now. Exam Vital signs and Labs for Last 24 Hours: Temp Pulse Resp BP Pulse Ox 97.5 F L 65 16 160/63 H 99 12/28/18 16:15 12/28/18 16:15 12/28/18 16:15 12/28/18 16:15 12/28/18 16:15 Laboratory Results - last 24 hr 12/27/18 20:23: POC Glucose 128 H 12/28/18 05:45: WBC 7.7, RBC 3.46 L, Hgb 9.9 L, Hct 31.2 L, MCV 90.4, MCH 28.7, MCHC 31.7 L, RDW 13.4, Plt Count 312, MPV 7.6, Neut % (Auto) 81.0 H, Lymph % (Auto) 8.7 L, [place] % (Auto) 5.5, Eos % (Auto) 4.3, Baso % (Auto) 0.5, Neut # (Auto) 6.3, Lymph # (Auto) 0.7, [place] # (Auto) 0.4, Eos # (Auto) 0.3, Baso # (Auto) 0.0 12/28/18 05:45: Sodium 131 L, Potassium 5.8 H, Chloride 99, Carbon Dioxide 24 D , Anion Gap 13.8, BUN 30 H, Creatinine 1.36 H, Estimated Creat Clear 53, Estimated GFR 39 L, Est GFR ( Amer) 48 L, Glucose 70 L D, Calcium 9.1 12/28/18 05:46: POC Glucose 71 12/28/18 11:33: POC Glucose 56 L 12/28/18 14:30: POC Glucose 77 12/28/18 15:51: POC Glucose 127 H 12/28/18 16:51: POC Glucose 106 I & O for Last 24 hours: Intake & Output 12/26/18 12/27/18 12/28/18 12/29/18 11:59 11:59 11:59 11:59 Intake Total 240 / 240 960 / 960 Balance 240 / 240 960 / 960 Weight 176 lb Narrative: She is resting comfortably in bed. No respiratory distress. She has a few faint wheezes anteriorly in her chest. Heart is regular with a faint grade 1/6 holosystolic murmur. Abdomen soft and nondistended with no tenderness. Dressing on her foot is dry and intact. Assessment and Plan (1) Gangrene of right foot Current visit: Yes Status: Acute Category: Medical Code(s): I96 - Gangrene, not elsewhere classified (2) Pneumonia Current visit: Yes Status: Acute Category: Medical Code(s): J18.9 - Pneumonia, unspecified organism (3) Cellulitis of right foot Current visit: Yes Status: Acute Category: Medical Code(s): L03.115 - Cellulitis of right lower limb (4) Diabetic foot infection Current visit: No Status: Acute Category: Medical Code(s): E11.628 - Type 2 diabetes mellitus with other skin complications; L08.9 - Local infection of the skin and subcutaneous tissue, unspecified (5) Osteomyelitis of foot, right, acute Current visit: Yes Status: Acute Category: Medical Code(s): M86.171 - Other acute osteomyelitis, right ankle and foot (6) PAD (peripheral artery disease) Current visit: Yes Status: Acute Category: Medical Code(s): I73.9 - Peripheral vascular disease, unspecified (7) History of left below knee amputation Current visit: Yes Status: Acute Category: Medical Code(s): Z89.512 - Acquired absence of left leg below knee (8) Diabetic nephropathy Current visit: Yes Status: Chronic Category: Medical Code(s): E11.21 - Type 2 diabetes mellitus with diabetic nephropathy (9) GERD (gastroesophageal reflux disease) Current visit: Yes Status: Chronic Category: Medical Code(s): K21.9 - Gastro-esophageal reflux disease without esophagitis (10) Diabetic retinopathy Current visit: Yes Status: Chronic Category: Medical Code(s): E11.319 - Type 2 diabetes mellitus with unspecified diabetic retinopathy without macular edema (11) GAVE (gastric antral vascular ectasia) Current visit: Yes Status: Chronic Category: Medical Code(s): K31.819 - Angiodysplasia of stomach and duodenum without bleeding (12) Cardiovascular disease Current visit: Yes Status: Chronic Category: Medical Code(s): I25.10 - Atherosclerotic heart disease of [place] coronary artery without angina pectoris (13) Hypertension Current visit: Yes Status: Chronic Category: Medical Code(s): I10 - Essential (primary) hypertension (14) Depression Current visit: Yes Status: Chronic Category: Medical Code(s): F32.9 - Major depressive disorder, single episode, unspecified (15) Environmental allergies Current visit: Yes Status: Chronic Category: Medical Code(s): Z91.09 - Other allergy status, other than to drugs and biological substances (16) Diastolic heart failure Current visit: Yes Status: Chronic Category: Medical Code(s): I50.30 - Unspecified diastolic (congestive) heart failure (17) Chronic anemia Current visit: Yes Status: Acute Category: Medical Code(s): D64.9 - Anemia, unspecified - Assessment and plan all Dx Assessment and Plan for all problems:: She tolerated surgery well. We will initiate incentive spirometry and encourage pulmonary toilet with close monitoring of her respiratory status.
[2018-12-29 06:57] LABS: Anion Gap 12.8 mEq/L (5-15); Calcium 8.4 mg/dL (8.5-10.1); Potassium 5.8 mmoL/L (3.5-5.1)
[2018-12-29 07:11] LABS: Basophils % 0.3 % (0.1-2.0); Eosinophils % 0.5 % (0.1-12.0); Hematocrit 28.3 % (37.0-47.0); Hemoglobin 8.9 g/dL (12.2-16.2); Lymphocytes # 0.6 K/mm3 (0.7-4.5); Lymphocytes % 8.5 % (10-50); Mean Corpuscular HGB Conc 31.4 g/dL (31.8-35.4); Mean Corpuscular Volume 92.3 fl (81-99); Mean Platelet Volume 7.7 fl (7.4-10.4); Monocytes # 0.5 K/mm3 (0.1-1.0); Monocytes % 6.6 % (1.7-9.3); Neutrophils # 6.1 K/mm3 (1.8-7.8); Neutrophils % 84.1 % (37.0-80.0); Platelet Count 291 K/mm3 (142-424); Red Blood Count 3.06 M/mm3 (4.20-5.40); Red Cell Distribution Width 13.5 % (11.5-17.5); White Blood Count 7.3 K/mm3 (4.8-10.8)
--- NOTE | 2018-12-29 08:19 | Progress Note ---
<Kiera Spencer - Last Filed: 12/29/18 08:14> Internal Medicine - PN: Subj *Date: 12/29/18 *Time: 08:14 Interval history: Patient states her foot hurts. She states she has been sleeping. She denies chest pain and shortness of breath. She denies abdominal pain. Does not want breakfast but states she never eats breakfast. Patient had her surgery yesterday p.m. Exam Vital signs and Labs for Last 24 Hours: Temp Pulse Resp BP Pulse Ox 98.2 F 84 14 133/64 94 L 12/29/18 04:00 12/29/18 06:00 12/29/18 04:00 12/29/18 04:00 12/29/18 06:00 Laboratory Results - last 24 hr 12/28/18 11:33: POC Glucose 56 L 12/28/18 14:30: POC Glucose 77 12/28/18 15:51: POC Glucose 127 H 12/28/18 16:51: POC Glucose 106 12/28/18 21:29: POC Glucose 158 H 12/29/18 05:27: POC Glucose 177 H 12/29/18 05:57: WBC 7.3, RBC 3.06 L, Hgb 8.9 L, Hct 28.3 L, MCV 92.3, MCH 29.0, MCHC 31.4 L, RDW 13.5, Plt Count 291, MPV 7.7, Neut % (Auto) 84.1 H, Lymph % (Auto) 8.5 L, [place] % (Auto) 6.6, Eos % (Auto) 0.5, Baso % (Auto) 0.3, Neut # (Auto) 6.1, Lymph # (Auto) 0.6 L, [place] # (Auto) 0.5, Eos # (Auto) 0.0, Baso # (Auto) 0.0 12/29/18 05:57: Sodium 132 L, Potassium 5.8 H, Chloride 103, Carbon Dioxide 22, Anion Gap 12.8, BUN 29 H, Creatinine 1.53 H, Estimated Creat Clear 47, Estimated GFR 34 L, Est GFR ( Amer) 41 L, Glucose 158 H, Calcium 8.4 L 12/29/18 05:57: B-Natriuretic Peptide 1840 H I & O for Last 24 hours: Intake & Output 12/26/18 12/27/18 12/28/18 12/29/18 11:59 11:59 11:59 11:59 Intake Total 240 / 240 1480 / 1480 Balance 240 / 240 1480 / 1480 Weight 176 lb - Constitutional no acute distress Comments: Awakened for vital signs - *Routine Respiratory Exam Comments: Decreased breath sounds on the left. Few bibasilar crackles posteriorly - *Routine Cardiovascular Exam Present: RRR, murmur - *Routine Abdominal Exam Present: soft, normoactive bowel sounds. Absent: tenderness - *Routine Extremities Exam Absent: edema Comments: Right foot dressing is clean and dry. Leg is warmer today. - *Routine Neurological Exam Present: alert Awakens easily. Calls me by name. Assessment and Plan (1) Gangrene of right foot Current visit: Yes Status: Acute Category: Medical Code(s): I96 - Gangrene, not elsewhere classified (2) Pneumonia Current visit: Yes Status: Acute Category: Medical Code(s): J18.9 - Pneumonia, unspecified organism (3) Cellulitis of right foot Current visit: Yes Status: Acute Category: Medical Code(s): L03.115 - Cellulitis of right lower limb (4) Diabetic foot infection Current visit: No Status: Acute Category: Medical Code(s): E11.628 - Type 2 diabetes mellitus with other skin complications; L08.9 - Local infection of the skin and subcutaneous tissue, unspecified (5) Osteomyelitis of foot, right, acute Current visit: Yes Status: Acute Category: Medical Code(s): M86.171 - Other acute osteomyelitis, right ankle and foot (6) PAD (peripheral artery disease) Current visit: Yes Status: Acute Category: Medical Code(s): I73.9 - Peripheral vascular disease, unspecified (7) History of left below knee amputation Current visit: Yes Status: Acute Category: Medical Code(s): Z89.512 - Acquired absence of left leg below knee (8) Diabetic nephropathy Current visit: Yes Status: Chronic Category: Medical Code(s): E11.21 - Type 2 diabetes mellitus with diabetic nephropathy (9) GERD (gastroesophageal reflux disease) Current visit: Yes Status: Chronic Category: Medical Code(s): K21.9 - Gastro-esophageal reflux disease without esophagitis (10) Diabetic retinopathy Current visit: Yes Status: Chronic Category: Medical Code(s): E11.319 - Type 2 diabetes mellitus with unspecified diabetic retinopathy without macular edema (11) GAVE (gastric antral vascular ectasia) Current visit: Yes Status: Chronic Category: Medical Code(s): K31.819 - Angiodysplasia of stomach and duodenum without bleeding (12) Cardiovascular disease Current visit: Yes Status: Chronic Category: Medical Code(s): I25.10 - Atherosclerotic heart disease of [place] coronary artery without angina pectoris (13) Hypertension Current visit: Yes Status: Chronic Category: Medical Code(s): I10 - Essential (primary) hypertension (14) Depression Current visit: Yes Status: Chronic Category: Medical Code(s): F32.9 - Major depressive disorder, single episode, unspecified (15) Environmental allergies Current visit: Yes Status: Chronic Category: Medical Code(s): Z91.09 - Other allergy status, other than to drugs and biological substances (16) Diastolic heart failure Current visit: Yes Status: Chronic Category: Medical Code(s): I50.30 - Unspecified diastolic (congestive) heart failure (17) Chronic anemia Current visit: Yes Status: Acute Category: Medical Code(s): D64.9 - Anemia, unspecified (18) Aortic stenosis Current visit: Yes Status: Acute Category: Medical Code(s): I35.0 - Nonrheumatic aortic (valve) stenosis - Assessment and plan all Dx Assessment and Plan for all problems:: Repeat chest x-ray today. Continue with pulmonary hygiene. We will also obtain an echo today. Continue with antibiotics as well. <Abhijit Griffith - Last Filed: 12/29/18 09:40> Exam Vital signs and Labs for Last 24 Hours: Temp Pulse Resp BP Pulse Ox 98.1 F 78 18 128/65 93 L 12/29/18 08:00 12/29/18 09:36 12/29/18 08:00 12/29/18 08:00 12/29/18 08:00 Laboratory Results - last 24 hr 12/28/18 11:33: POC Glucose 56 L 12/28/18 14:30: POC Glucose 77 12/28/18 15:51: POC Glucose 127 H 12/28/18 16:51: POC Glucose 106 12/28/18 21:29: POC Glucose 158 H 12/29/18 05:27: POC Glucose 177 H 12/29/18 05:57: WBC 7.3, RBC 3.06 L, Hgb 8.9 L, Hct 28.3 L, MCV 92.3, MCH 29.0, MCHC 31.4 L, RDW 13.5, Plt Count 291, MPV 7.7, Neut % (Auto) 84.1 H, Lymph % (Auto) 8.5 L, [place] % (Auto) 6.6, Eos % (Auto) 0.5, Baso % (Auto) 0.3, Neut # (Auto) 6.1, Lymph # (Auto) 0.6 L, [place] # (Auto) 0.5, Eos # (Auto) 0.0, Baso # (Auto) 0.0 12/29/18 05:57: Sodium 132 L, Potassium 5.8 H, Chloride 103, Carbon Dioxide 22, Anion Gap 12.8, BUN 29 H, Creatinine 1.53 H, Estimated Creat Clear 47, Estimated GFR 34 L, Est GFR ( Amer) 41 L, Glucose 158 H, Calcium 8.4 L 12/29/18 05:57: B-Natriuretic Peptide 1840 H I & O for Last 24 hours: Intake & Output 12/26/18 12/27/18 12/28/18 12/29/18 11:59 11:59 11:59 11:59 Intake Total 240 / 240 1480 / 1480 Balance 240 / 240 1480 / 1480 Weight 176 lb Assessment and Plan (1) Gangrene of right foot Current visit: Yes Status: Acute Category: Medical Code(s): I96 - Gangrene, not elsewhere classified (2) Pneumonia Current visit: Yes Status: Acute Category: Medical Code(s): J18.9 - Pneumonia, unspecified organism (3) Cellulitis of right foot Current visit: Yes Status: Acute Category: Medical Code(s): L03.115 - Cellulitis of right lower limb (4) Diabetic foot infection Current visit: No Status: Acute Category: Medical Code(s): E11.628 - Type 2 diabetes mellitus with other skin complications; L08.9 - Local infection of the skin and subcutaneous tissue, unspecified (5) Osteomyelitis of foot, right, acute Current visit: Yes Status: Acute Category: Medical Code(s): M86.171 - Other acute osteomyelitis, right ankle and foot (6) PAD (peripheral artery disease) Current visit: Yes Status: Acute Category: Medical Code(s): I73.9 - Peripheral vascular disease, unspecified (7) History of left below knee amputation Current visit: Yes Status: Acute Category: Medical Code(s): Z89.512 - Acquired absence of left leg below knee (8) Diabetic nephropathy Current visit: Yes Status: Chronic Category: Medical Code(s): E11.21 - Type 2 diabetes mellitus with diabetic nephropathy (9) GERD (gastroesophageal reflux disease) Current visit: Yes Status: Chronic Category: Medical Code(s): K21.9 - Gastro-esophageal reflux disease without esophagitis (10) Diabetic retinopathy Current visit: Yes Status: Chronic Category: Medical Code(s): E11.319 - Type 2 diabetes mellitus with unspecified diabetic retinopathy without macular edema (11) GAVE (gastric antral vascular ectasia) Current visit: Yes Status: Chronic Category: Medical Code(s): K31.819 - Angiodysplasia of stomach and duodenum without bleeding (12) Cardiovascular disease Current visit: Yes Status: Chronic Category: Medical Code(s): I25.10 - Atherosclerotic heart disease of [place] coronary artery without angina pectoris (13) Hypertension Current visit: Yes Status: Chronic Category: Medical Code(s): I10 - Essential (primary) hypertension (14) Depression Current visit: Yes Status: Chronic Category: Medical Code(s): F32.9 - Major depressive disorder, single episode, unspecified (15) Environmental allergies Current visit: Yes Status: Chronic Category: Medical Code(s): Z91.09 - Other allergy status, other than to drugs and biological substances (16) Diastolic heart failure Current visit: Yes Status: Chronic Category: Medical Code(s): I50.30 - Unspecified diastolic (congestive) heart failure (17) Chronic anemia Current visit: Yes Status: Acute Category: Medical Code(s): D64.9 - Anemia, unspecified (18) Aortic stenosis Current visit: Yes Status: Acute Category: Medical Code(s): I35.0 - Nonrheumatic aortic (valve) stenosis - Assessment and plan all Dx Assessment and Plan for all problems:: Patient seen and examined this AM. She appears comfortable and quite stable. Discussed orders and plan of care with Junie Spencer as outlined in note.
--- NOTE | 2018-12-29 12:56 | Progress Note ---
Subjective Date: 12/29/18 Time: 12:40 Principal diagnosis: R 2nd toe gangrene, PAD, cellulitis, osteomyelitis Interval history: Patient resting comfortably in bed. She reports the right foot is "achy". She denies N/V, F/C, SOB/CP. She is hungry and requesting more food. PN: Obj Ex Vital signs: Temp Pulse Resp BP Pulse Ox 98.1 F 78 18 128/65 93 L 12/29/18 08:00 12/29/18 09:36 12/29/18 08:00 12/29/18 08:00 12/29/18 08:00 - Constitutional no acute distress - Routine HEENT Exam Head: Present: normocephalic - Routine Neck Exam Present: supple - Routine Abdominal Exam Present: soft - Routine Extremities Exam Present: edema (improving). Absent: calf tenderness - Detailed Lower Extremity Exam Comments: Right foot amp site has sutures and [place] clean dry and intact. Decreased edema and erythema noted to the amputation site. Decreased edema noted to the RLE. The right heel has no pressure ulcer but there is some pinkness to the skin. Skin temp wnl. No calf or thigh pain noted. - Routine Skin Exam Present: erythema Progress Note: A&P (1) Gangrene of right foot Status: Acute Current Visit: Yes (2) Pneumonia Status: Acute Current Visit: Yes (3) Cellulitis of right foot Status: Acute Current Visit: Yes (4) Diabetic foot infection Status: Acute Current Visit: No (5) Osteomyelitis of foot, right, acute Status: Acute Current Visit: Yes (6) PAD (peripheral artery disease) Status: Acute Current Visit: Yes (7) History of left below knee amputation Status: Acute Current Visit: Yes (8) Diabetic nephropathy Status: Chronic Current Visit: Yes (9) GERD (gastroesophageal reflux disease) Status: Chronic Current Visit: Yes (10) Diabetic retinopathy Status: Chronic Current Visit: Yes (11) GAVE (gastric antral vascular ectasia) Status: Chronic Current Visit: Yes (12) Cardiovascular disease Status: Chronic Current Visit: Yes (13) Hypertension Status: Chronic Current Visit: Yes (14) Depression Status: Chronic Current Visit: Yes (15) Environmental allergies Status: Chronic Current Visit: Yes (16) Diastolic heart failure Status: Chronic Current Visit: Yes (17) Chronic anemia Status: Acute Current Visit: Yes (18) Aortic stenosis Status: Acute Current Visit: Yes Assessment and Plan for All Diagnoses:: 12/28/18, s/p right foot I&D, foreign body excision, transmetatarsal amputation POD #1 Intra-op specimens 12/28/18, pending: GPC in pairs, GNR 1. Right 2nd toe bone culture 2. Right 2nd toe bone path 3. Right 2-4th met bone culture 1. Dressing changed at bedside: wound is stable, improving edema and erythema 2. Maintain dsg C/D/I 3. Suspend right heel off pillow (avoid pressure heel ulcer) 4. NWB in wheelchair 5. Continue IV Abx 6. Will plan for dsg change tomorrow
--- NOTE | 2018-12-29 14:24 | Pharmacy Consult Notes ---
- Pharmacy Consult Date: 12/29/18 Time: 14:23 Referring provider: DR. PAGAN Reason for Consult:: VANCOMYCIN TROUGH LEVEL Allergies and ADEs:: Allergies Allergy/AdvReac Type Severity Reaction Status Date / Time No Known Allergies Allergy Verified 12/27/18 12:47 Home Medications:: Home Medications Medication Instructions Recorded Confirmed Type Insulin Lispro [HumaLOG 100 0 units SQ ACHS 06/08/18 12/28/18 History units/mL 3mL vial (SSI)] Lactobacillus acidophilus capsule 10 mg PO DAILY 12/27/18 12/27/18 History azelastine 137 mcg (0.1 %) nasal 1 spray INTRANASAL BID 12/27/18 12/27/18 History spray aerosol carvedilol 3.125 mg tablet 3.125 mg PO BID 12/27/18 12/27/18 History cetirizine 10 mg capsule 10 mg PO DAILY 12/27/18 12/27/18 History citalopram 20 mg tablet 20 mg PO DAILY 12/27/18 12/27/18 History docusate sodium 250 mg capsule 250 mg PO DAILY PRN cap 12/27/18 12/27/18 History ezetimibe 10 mg tablet 10 mg PO DAILY 12/27/18 12/27/18 History ferrous sulfate 325 mg (65 mg 325 mg PO BID tab 12/27/18 12/28/18 History iron) tablet furosemide 20 mg tablet 20 mg PO DAILY 12/27/18 12/27/18 History gabapentin 100 mg capsule 100 mg PO BID 12/27/18 12/28/18 History insulin glargine (U-100) 100 22 unit SQ HS ml 12/27/18 12/28/18 History unit/mL (3 mL) subcutaneous pen lisinopril 10 mg tablet 10 mg PO DAILY 12/27/18 12/27/18 History montelukast 10 mg tablet 10 mg PO HS 12/27/18 12/28/18 History multivitamin,yz-wjyz-dkxwkdiz 1 tab PO DAILY 12/27/18 12/27/18 History tablet omeprazole 20 mg capsule,delayed 20 mg PO DAILY 12/27/18 12/27/18 History release simvastatin 40 mg tablet 40 mg PO HS 12/27/18 12/28/18 History sulfamethoxazole 800 1 tab PO BID tab 12/27/18 12/28/18 History mg-trimethoprim 160 mg tablet Fluticasone Propionate [Flonase 2 spr NS HS 12/28/18 12/28/18 History 50mcg nasal spray 16gm] Fluticasone Propionate [Flovent 2 puffs IH BID 12/28/18 12/28/18 History Hfa 110mcg Inhaler] Height: 1.5 m Weight: 79.832 kg Laboratory Results:: Laboratory Results - last 24 hr 12/28/18 14:30: POC Glucose 77 12/28/18 15:51: POC Glucose 127 H 12/28/18 16:51: POC Glucose 106 12/28/18 21:29: POC Glucose 158 H 12/29/18 05:27: POC Glucose 177 H 12/29/18 05:57: WBC 7.3, RBC 3.06 L, Hgb 8.9 L, Hct 28.3 L, MCV 92.3, MCH 29.0, MCHC 31.4 L, RDW 13.5, Plt Count 291, MPV 7.7, Neut % (Auto) 84.1 H, Lymph % (Auto) 8.5 L, [place] % (Auto) 6.6, Eos % (Auto) 0.5, Baso % (Auto) 0.3, Neut # (Auto) 6.1, Lymph # (Auto) 0.6 L, [place] # (Auto) 0.5, Eos # (Auto) 0.0, Baso # (Auto) 0.0 12/29/18 05:57: Sodium 132 L, Potassium 5.8 H, Chloride 103, Carbon Dioxide 22, Anion Gap 12.8, BUN 29 H, Creatinine 1.53 H, Estimated Creat Clear 47, Estimated GFR 34 L, Est GFR ( Amer) 41 L, Glucose 158 H, Calcium 8.4 L 12/29/18 05:57: B-Natriuretic Peptide 1840 H 12/29/18 11:57: POC Glucose 113 H 12/29/18 13:30: Vancomycin Trough 9.1 L Medical History: Reports:: Asthma, Atherosclerotic Heart Disease, Congestive Heart Failure, Coronary Artery Disease, Depression, Diabetes Mellitus Type 2, Gastroesophageal Reflux Disease(GERD), Gastrointestinal Bleed, Hyperlipidemia, Hypertension, MRSA, Myocardial Infarction, Peripheral Artery Disease, Peripheral Vascular Disease, Urinary Tract Infection Assessment and Plan (1) Gangrene of right foot Current visit: Yes Status: Acute Category: Medical Code(s): I96 - Gangrene, not elsewhere classified (2) Pneumonia Current visit: Yes Status: Acute Category: Medical Code(s): J18.9 - Pneumonia, unspecified organism (3) Cellulitis of right foot Current visit: Yes Status: Acute Category: Medical Code(s): L03.115 - Cellulitis of right lower limb (4) Diabetic foot infection Current visit: No Status: Acute Category: Medical Code(s): E11.628 - Type 2 diabetes mellitus with other skin complications; L08.9 - Local infection of the skin and subcutaneous tissue, unspecified (5) Osteomyelitis of foot, right, acute Current visit: Yes Status: Acute Category: Medical Code(s): M86.171 - Other acute osteomyelitis, right ankle and foot (6) PAD (peripheral artery disease) Current visit: Yes Status: Acute Category: Medical Code(s): I73.9 - Peripheral vascular disease, unspecified (7) History of left below knee amputation Current visit: Yes Status: Acute Category: Medical Code(s): Z89.512 - Acquired absence of left leg below knee (8) Diabetic nephropathy Current visit: Yes Status: Chronic Category: Medical Code(s): E11.21 - Type 2 diabetes mellitus with diabetic nephropathy (9) GERD (gastroesophageal reflux disease) Current visit: Yes Status: Chronic Category: Medical Code(s): K21.9 - Gastro-esophageal reflux disease without esophagitis (10) Diabetic retinopathy Current visit: Yes Status: Chronic Category: Medical Code(s): E11.319 - Type 2 diabetes mellitus with unspecified diabetic retinopathy without macular edema (11) GAVE (gastric antral vascular ectasia) Current visit: Yes Status: Chronic Category: Medical Code(s): K31.819 - Angiodysplasia of stomach and duodenum without bleeding (12) Cardiovascular disease Current visit: Yes Status: Chronic Category: Medical Code(s): I25.10 - Atherosclerotic heart disease of [place] coronary artery without angina pectoris (13) Hypertension Current visit: Yes Status: Chronic Category: Medical Code(s): I10 - Essential (primary) hypertension (14) Depression Current visit: Yes Status: Chronic Category: Medical Code(s): F32.9 - Major depressive disorder, single episode, unspecified (15) Environmental allergies Current visit: Yes Status: Chronic Category: Medical Code(s): Z91.09 - Other allergy status, other than to drugs and biological substances (16) Diastolic heart failure Current visit: Yes Status: Chronic Category: Medical Code(s): I50.30 - Unspecified diastolic (congestive) heart failure (17) Chronic anemia Current visit: Yes Status: Acute Category: Medical Code(s): D64.9 - Anemia, unspecified (18) Aortic stenosis Current visit: Yes Status: Acute Category: Medical Code(s): I35.0 - Nonrheumatic aortic (valve) stenosis - Assessment and plan all Dx Assessment and Plan for all problems:: BASED ON PATIENT FACTORS AND VANCOMYCIN TROUGH LEVEL, RECOMMEND CHANGING INTERVAL TO VANCOMYCIN 1250 MG IV Q24H. PHARMACY WILL CONTINUE TO FOLLOW DAILY AND ADJUST APPROPRIATE.
[2018-12-30 06:48] LABS: Basophils % 0.3 % (0.1-2.0); Eosinophils # 0.3 K/mm3 (0.0-0.4); Eosinophils % 4.2 % (0.1-12.0); Hematocrit 28.1 % (37.0-47.0); Hemoglobin 8.9 g/dL (12.2-16.2); Lymphocytes # 0.6 K/mm3 (0.7-4.5); Lymphocytes % 8.2 % (10-50); Mean Corpuscular HGB Conc 31.5 g/dL (31.8-35.4); Mean Corpuscular Hemoglobin 29.3 pg (27.0-31.2); Mean Corpuscular Volume 92.9 fl (81-99); Mean Platelet Volume 7.7 fl (7.4-10.4); Monocytes # 0.5 K/mm3 (0.1-1.0); Monocytes % 6.3 % (1.7-9.3); Neutrophils # 6.2 K/mm3 (1.8-7.8); Neutrophils % 80.9 % (37.0-80.0); Platelet Count 256 K/mm3 (142-424); Red Blood Count 3.03 M/mm3 (4.20-5.40); Red Cell Distribution Width 13.7 % (11.5-17.5); White Blood Count 7.7 K/mm3 (4.8-10.8)
[2018-12-30 07:17] LABS: Anion Gap 14.8 mEq/L (5-15); Calcium 8.4 mg/dL (8.5-10.1); Potassium 5.8 mmoL/L (3.5-5.1)
--- NOTE | 2018-12-30 07:32 | Progress Note ---
Internal Medicine - PN: Subj *Date: 12/30/18 *Time: 07:31 Exam Vital signs and Labs for Last 24 Hours: Temp Pulse Resp BP Pulse Ox 97.8 F 84 17 166/84 H 86 L 12/30/18 04:00 12/30/18 07:07 12/30/18 04:00 12/30/18 04:00 12/30/18 07:07 Laboratory Results - last 24 hr 12/29/18 05:57: B-Natriuretic Peptide 1840 H 12/29/18 11:57: POC Glucose 113 H 12/29/18 13:30: Vancomycin Trough 9.1 L 12/29/18 16:46: POC Glucose 160 H 12/29/18 20:18: POC Glucose 149 H 12/30/18 05:39: WBC 7.7, RBC 3.03 L, Hgb 8.9 L, Hct 28.1 L, MCV 92.9, MCH 29.3, MCHC 31.5 L, RDW 13.7, Plt Count 256, MPV 7.7, Neut % (Auto) 80.9 H, Lymph % (Auto) 8.2 L, [place] % (Auto) 6.3, Eos % (Auto) 4.2, Baso % (Auto) 0.3, Neut # (Auto) 6.2, Lymph # (Auto) 0.6 L, [place] # (Auto) 0.5, Eos # (Auto) 0.3, Baso # (Auto) 0.0 12/30/18 05:39: Sodium 135 L, Potassium 5.8 H, Chloride 105, Carbon Dioxide 21, Anion Gap 14.8, BUN 25 H, Creatinine 1.23 H, Estimated Creat Clear 59, Estimated GFR 44 L, Est GFR ( Amer) 53 L D, Glucose 160 H, Calcium 8.4 L 12/30/18 05:45: POC Glucose 158 H I & O for Last 24 hours: Intake & Output 12/27/18 12/28/18 12/29/18 12/30/18 23:59 23:59 23:59 23:59 Intake Total 240 / 240 960 / 960 3099 / 3099 683 / 683 Balance 240 / 240 960 / 960 3099 / 3099 683 / 683 Weight 79.832 kg 79.832 kg Microbiology Reports for the Last 24 Hours: Microbiology 12/28/18 15:03 Toe,Second Right Gram Stain - Final 12/28/18 15:03 Toe,Second Right Surgical Biopsy Culture - Preliminary Gram Negative Rods Gram Positive Cocci 12/28/18 15:17 Foot,Right - Right Gram Stain - Final 12/28/18 15:17 Foot,Right - Right Surgical Biopsy Culture - Preliminary Gram Negative Rods 12/28/18 15:03 Foot,Right - Right Gram Stain - Final 12/28/18 15:03 Foot,Right - Right Surgical Biopsy Culture - Preliminary Gram Negative Rods 12/28/18 15:17 Foot,Right - Right Gram Stain - Final Assessment and Plan (1) Gangrene of right foot Current visit: Yes Status: Acute Category: Medical Code(s): I96 - Gangrene, not elsewhere classified (2) Pneumonia Current visit: Yes Status: Acute Category: Medical Code(s): J18.9 - Pneumonia, unspecified organism (3) Cellulitis of right foot Current visit: Yes Status: Acute Category: Medical Code(s): L03.115 - Cellulitis of right lower limb (4) Diabetic foot infection Current visit: No Status: Acute Category: Medical Code(s): E11.628 - Type 2 diabetes mellitus with other skin complications; L08.9 - Local infection of the skin and subcutaneous tissue, unspecified (5) Osteomyelitis of foot, right, acute Current visit: Yes Status: Acute Category: Medical Code(s): M86.171 - Ot her acute osteomyelitis, right ankle and foot (6) PAD (peripheral artery disease) Current visit: Yes Status: Acute Category: Medical Code(s): I73.9 - Peripheral vascular disease, unspecified (7) History of left below knee amputation Current visit: Yes Status: Acute Category: Medical Code(s): Z89.512 - Acquired absence of left leg below knee (8) Diabetic nephropathy Current visit: Yes Status: Chronic Category: Medical Code(s): E11.21 - Type 2 diabetes mellitus with diabetic nephropathy (9) GERD (gastroesophageal reflux disease) Current visit: Yes Status: Chronic Category: Medical Code(s): K21.9 - Gastro-esophageal reflux disease without esophagitis (10) Diabetic retinopathy Current visit: Yes Status: Chronic Category: Medical Code(s): E11.319 - Type 2 diabetes mellitus with unspecified diabetic retinopathy without macular edema (11) GAVE (gastric antral vascular ectasia) Current visit: Yes Status: Chronic Category: Medical Code(s): K31.819 - Angiodysplasia of stomach and duodenum without bleeding (12) Cardiovascular disease Current visit: Yes Status: Chronic Category: Medical Code(s): I25.10 - Atherosclerotic heart disease of [place] coronary artery without angina pectoris (13) Hypertension Current visit: Yes Status: Chronic Category: Medical Code(s): I10 - Essential (primary) hypertension (14) Depression Current visit: Yes Status: Chronic Category: Medical Code(s): F32.9 - Major depressive disorder, single episode, unspecified (15) Environmental allergies Current visit: Yes Status: Chronic Category: Medical Code(s): Z91.09 - Other allergy status, other than to drugs and biological substances (16) Diastolic heart failure Current visit: Yes Status: Chronic Category: Medical Code(s): I50.30 - Unspecified diastolic (congestive) heart failure (17) Chronic anemia Current visit: Yes Status: Acute Category: Medical Code(s): D64.9 - Anemia, unspecified (18) Aortic stenosis Current visit: Yes Status: Acute Category: Medical Code(s): I35.0 - Nonrheumatic aortic (valve) stenosis The patient's infection will respond to the chosen ABx?: Yes Is the patient receiving the right drug, dose, and route?: Yes Could a more targeted ABx be ordered?: No (GRAM + COCCI AND GRAM - RODS GROWING. NO SENSITIVITIES YET.)
--- NOTE | 2018-12-30 08:13 | Progress Note ---
Internal Medicine - PN: Subj *Date: 12/30/18 *Time: 08:10 Interval history: Interim hx reviewed. No new complaints. Denies pain. Has not produced a sputum yet. Final Echo report pending but preliminary EF=35% with moderate . Exam Vital signs and Labs for Last 24 Hours: Temp Pulse Resp BP Pulse Ox 97.8 F 84 17 166/84 H 86 L 12/30/18 04:00 12/30/18 07:07 12/30/18 04:00 12/30/18 04:00 12/30/18 07:07 Laboratory Results - last 24 hr 12/29/18 11:57: POC Glucose 113 H 12/29/18 13:30: Vancomycin Trough 9.1 L 12/29/18 16:46: POC Glucose 160 H 12/29/18 20:18: POC Glucose 149 H 12/30/18 05:39: WBC 7.7, RBC 3.03 L, Hgb 8.9 L, Hct 28.1 L, MCV 92.9, MCH 29.3, MCHC 31.5 L, RDW 13.7, Plt Count 256, MPV 7.7, Neut % (Auto) 80.9 H, Lymph % (Auto) 8.2 L, [place] % (Auto) 6.3, Eos % (Auto) 4.2, Baso % (Auto) 0.3, Neut # (Auto) 6.2, Lymph # (Auto) 0.6 L, [place] # (Auto) 0.5, Eos # (Auto) 0.3, Baso # (Auto) 0.0 12/30/18 05:39: Sodium 135 L, Potassium 5.8 H, Chloride 105, Carbon Dioxide 21, Anion Gap 14.8, BUN 25 H, Creatinine 1.23 H, Estimated Creat Clear 59, Estimated GFR 44 L, Est GFR ( Amer) 53 L D, Glucose 160 H, Calcium 8.4 L 12/30/18 05:45: POC Glucose 158 H I & O for Last 24 hours: Intake & Output 12/27/18 12/28/18 12/29/18 12/30/18 11:59 11:59 11:59 11:59 Intake Total 240 / 240 1480 / 1480 3262 / 3262 Balance 240 / 240 1480 / 1480 3262 / 3262 Weight 176 lb 176 lb Microbiology Reports for the Last 24 Hours: Microbiology 12/28/18 15:17 Foot,Right - Right Gram Stain - Final 12/28/18 15:17 Foot,Right - Right Surgical Biopsy Culture - Preliminary Gram Negative Rods 12/28/18 15:03 Toe,Second Right Gram Stain - Final 12/28/18 15:03 Toe,Second Right Surgical Biopsy Culture - Preliminary Gram Negative Rods Gram Positive Cocci 12/28/18 15:17 Foot,Right - Right Gram Stain - Final 12/28/18 15:17 Foot,Right - Right Surgical Biopsy Culture - Preliminary Gram Negative Rods 12/28/18 15:03 Foot,Right - Right Gram Stain - Final 12/28/18 15:03 Foot,Right - Right Surgical Biopsy Culture - Preliminary Gram Negative Rods - Constitutional no acute distress - *Routine Respiratory Exam Comments: clear anteriorly, crackle in bases - *Routine Cardiovascular Exam Present: RRR - *Routine Extremities Exam Absent: edema Assessment and Plan (1) Gangrene of right foot Current visit: Yes Status: Acute Category: Medical Code(s): I96 - Gangrene, not elsewhere classified (2) Pneumonia Current visit: Yes Status: Acute Category: Medical Code(s): J18.9 - Pneumonia, unspecified organism (3) Cellulitis of right foot Current visit: Yes Status: Acute Category: Medical Code(s): L03.115 - Cellulitis of right lower limb (4) Diabetic foot infection Current visit: No Status: Acute Category: Medical Code(s): E11.628 - Type 2 diabetes mellitus with other skin complications; L08.9 - Local infection of the skin and subcutaneous tissue, unspecified (5) Osteomyelitis of foot, right, acute Current visit: Yes Status: Acute Category: Medical Code(s): M86.171 - Other acute osteomyelitis, right ankle and foot (6) PAD (peripheral artery disease) Current visit: Yes Status: Acute Category: Medical Code(s): I73.9 - Peripheral vascular disease, unspecified (7) History of left below knee amputation Current visit: Yes Status: Acute Category: Medical Code(s): Z89.512 - Acquired absence of left leg below knee (8) Diabetic nephropathy Current visit: Yes Status: Chronic Category: Medical Code(s): E11.21 - Type 2 diabetes mellitus with diabetic nephropathy (9) GERD (gastroesophageal reflux disease) Current visit: Yes Status: Chronic Category: Medical Code(s): K21.9 - Gastro-esophageal reflux disease without esophagitis (10) Diabetic retinopathy Current visit: Yes Status: Chronic Category: Medical Code(s): E11.319 - Type 2 diabetes mellitus with unspecified diabetic retinopathy without macular edema (11) GAVE (gastric antral vascular ectasia) Current visit: Yes Status: Chronic Category: Medical Code(s): K31.819 - Angiodysplasia of stomach and duodenum without bleeding (12) Cardiovascular disease Current visit: Yes Status: Chronic Category: Medical Code(s): I25.10 - Atherosclerotic heart disease of [place] coronary artery without angina pectoris (13) Hypertension Current visit: Yes Status: Chronic Category: Medical Code(s): I10 - Essential (primary) hypertension (14) Depression Current visit: Yes Status: Chronic Category: Medical Code(s): F32.9 - Major depressive disorder, single episode, unspecified (15) Environmental allergies Current visit: Yes Status: Chronic Category: Medical Code(s): Z91.09 - Other allergy status, other than to drugs and biological substances (16) Diastolic heart failure Current visit: Yes Status: Chronic Category: Medical Code(s): I50.30 - Unspecified diastolic (congestive) heart failure (17) Chronic anemia Current visit: Yes Status: Acute Category: Medical Code(s): D64.9 - Anemia, unspecified (18) Aortic stenosis Current visit: Yes Status: Acute Category: Medical Code(s): I35.0 - Nonrheumatic aortic (valve) stenosis - Assessment and plan all Dx Assessment and Plan for all problems:: Continue current antibiotic regimen pending culture. Increase Coreg.
--- NOTE | 2018-12-30 13:29 | Progress Note ---
Subjective Date: 12/30/18 Time: 12:45 Principal diagnosis: R 2nd toe gangrene, PAD, cellulitis, osteomyelitis Interval history: Patient resting comfortably in bed. She complains of nausea. She did just receive a dose of Zofran 10 minutes ago. PN: Obj Ex Vital signs: Temp Pulse Resp BP Pulse Ox 98.6 F 84 16 157/72 H 93 L 12/30/18 08:00 12/30/18 08:00 12/30/18 08:00 12/30/18 08:00 12/30/18 08:50 - Constitutional no acute distress - Routine HEENT Exam Head: Present: normocephalic - Routine Respiratory Exam Absent: respiratory distress - Routine Extremities Exam Present: edema (improving), extremity cold to touch. Absent: normal capillary refill - Detailed Lower Extremity Exam Comments: Right foot amp site has sutures and norah clean dry and intact. Blister noted to dorsal central amp site. Popped, clear drainage. Mild POP. Decreased edema and erythema noted to the amputation site. Decreased edema noted to the RLE. The right heel has no pressure ulcer but there is some pinkness to the skin. Skin temp wnl. No calf or thigh pain noted. Progress Note: A&P (1) Gangrene of right foot Status: Acute Current Visit: Yes (2) Pneumonia Status: Acute Current Visit: Yes (3) Cellulitis of right foot Status: Acute Current Visit: Yes (4) Diabetic foot infection Status: Acute Current Visit: No (5) Osteomyelitis of foot, right, acute Status: Acute Current Visit: Yes (6) PAD (peripheral artery disease) Status: Acute Current Visit: Yes (7) History of left below knee amputation Status: Acute Current Visit: Yes (8) Diabetic nephropathy Status: Chronic Current Visit: Yes (9) GERD (gastroesophageal reflux disease) Status: Chronic Current Visit: Yes (10) Diabetic retinopathy Status: Chronic Current Visit: Yes (11) GAVE (gastric antral vascular ectasia) Status: Chronic Current Visit: Yes (12) Cardiovascular disease Status: Chronic Current Visit: Yes (13) Hypertension Status: Chronic Current Visit: Yes (14) Depression Status: Chronic Current Visit: Yes (15) Environmental allergies Status: Chronic Current Visit: Yes (16) Diastolic heart failure Status: Chronic Current Visit: Yes (17) Chronic anemia Status: Acute Current Visit: Yes (18) Aortic stenosis Status: Acute Current Visit: Yes Assessment and Plan for All Diagnoses:: 12/28/18, s/p right foot I&D, foreign body excision, transmetatarsal amputation POD #2 Intra-op cultures 12/28/18: GPC, GNR 1. Dressing changed at bedside: blister noted, cleaned with betadine and popped. No new SOI. Wound is stable, improving edema and erythema 2. Maintain dsg C/D/I 3. Suspend right heel off pillow (avoid pressure heel ulcer) 4. NWB in wheelchair 5. Continue IV Abx 6. Will plan for dsg change tomorrow 7. Discussed previously with Harry Akins regarding abnormal ABIs and L BKA history. High risk for R proximal amp/BKA. Defer to cardio, possible revasc
--- NOTE | 2018-12-30 15:21 | Cardiology Report ---
PROCEDURE: 2-D M-mode and color Doppler study INDICATIONS FOR THE TEST: Chest pain COPD Heart Murmur Tobacco Smoking Palpitations Fatigue Syncope Edema Hypertension+Diabetes Mellitus+ Rheumatic Fever SOB BISHOP Obesity+Hyperlipidemia+ Family History HD Additional History NSTEMI, CAD, Hx of NE PATIENT INFORMATION HEIGHT: 59 WEIGHT: 176 GENDER: Female B/P: 141/74 2-D/M-MODE INTERPRETATION: 2-D MEASUREMENTS OBSERVED VALUES IN CMS Right Ventricular Dimension (RVDd) 1.7 Interventricular Septum (Thickness)(IVsd) 0.9 Left Ventricular Internal Dimensions(LVIDd) 5.4 Left Ventricular Posterior Wall (Thickness)(LVPWd) 0.9 Aortic Root 2.5 Aortic Cusp Separation 1.6 Left Atrial Dimensions (LAD) 4.3 2D 1. Technically difficult and poor study, short axis views were not obtained. 2. Left atrium is moderately enlarged, left ventricle is mildly dilated, there is mild concentric left ventricular hypertrophy, visually estimated ejection fraction approximately 30-35%, in the obtained views. There is moderate hypokinesis involving the basal septum, mid to distal septum. Short axis views were not obtained. 3. The right atrium and right ventricle are normal size and contractility. 4. The aortic valve is thickened and calcified with restriction the leaflet mobility. 5. The mitral valve has mitral calcification which extends and both anterior and posterior mitral leaflet, there is restriction the mitral valve leaflets mobility. 6. The tricuspid valve leaflets are minimally thickened. 7. The pulmonic valve is poorly present. 8. Small pericardial effusion noted. DOPPLER INTERROGATION: 1. The maximum aortic out flow velocity recorded study 3.6 m/s, mean gradient across valve is 30 mmHg this likely represents moderate aortic stenosis. There is mild aortic insufficiency present. 2. The mitral inflow velocities increased 1.8 m/s, resulting in a mean gradient across valve of 5 mmHg, the valve area is not accurately calculated, this likely represents mild mitral stenosis. There is moderate mitral regurgitation. 3. There is mild tricuspid regurgitation, tricuspid regurgitation jet velocity is inadequate for calculation of the right ventricular systolic pressure. CONCLUSION: 1. Technically difficult and poor study, short axis view an epicardial 2 chamber views were not obtained. 2. Moderately enlarged left atrium, mildly dilated left ventricle, visually estimated ejection fraction 30-35% in the obtained views with segmental wall motion abnormality described above. 3. Thickened and calcified aortic valve, with restriction the leaflet mobility, mean gradient across valve is 30 mmHg represents moderate aortic stenosis, there is mild aortic insufficiency present. 4. Thickened and calcified mitral valve leaflets. Mitral annular calcification, mean gradient is 5 mmHg represents mild mitral stenosis, there is moderate mitral regurgitation. 5. Mild tricuspid regurgitation, tricuspid regurgitation jet velocity is inadequate for calculation of the right ventricular systolic pressure. 6. Small pericardial effusion noted.
[2018-12-31 06:16] LABS: Basophils % 0.6 % (0.1-2.0); Eosinophils # 0.5 K/mm3 (0.0-0.4); Eosinophils % 7.9 % (0.1-12.0); Hematocrit 28.6 % (37.0-47.0); Hemoglobin 8.8 g/dL (12.2-16.2); Lymphocytes # 0.6 K/mm3 (0.7-4.5); Lymphocytes % 9.7 % (10-50); Mean Corpuscular HGB Conc 30.7 g/dL (31.8-35.4); Mean Corpuscular Hemoglobin 29.5 pg (27.0-31.2); Mean Corpuscular Volume 95.8 fl (81-99); Mean Platelet Volume 7.3 fl (7.4-10.4); Monocytes # 0.4 K/mm3 (0.1-1.0); Monocytes % 5.6 % (1.7-9.3); Neutrophils % 76.3 % (37.0-80.0); Platelet Count 256 K/mm3 (142-424); Red Blood Count 2.99 M/mm3 (4.20-5.40); Red Cell Distribution Width 13.8 % (11.5-17.5); White Blood Count 6.6 K/mm3 (4.8-10.8)
[2018-12-31 06:22] LABS: Anion Gap 13.2 mEq/L (5-15); Calcium 8.5 mg/dL (8.5-10.1)
[2018-12-31 06:24] LABS: Potassium 6.2 mmoL/L (3.5-5.1)
--- NOTE | 2018-12-31 08:36 | Progress Note ---
<Love Haider - Last Filed: 12/31/18 08:34> Internal Medicine - PN: Subj *Date: 12/31/18 *Time: 08:34 Interval history: Patient states she is not feeling well this morning. She is complaining of nausea. She states she does not feel like eating anything this morning. She is complaining of some upper abdominal pain. Exam Vital signs and Labs for Last 24 Hours: Temp Pulse Resp BP Pulse Ox 97.9 F 72 18 172/84 H 93 L 12/31/18 08:00 12/31/18 08:00 12/31/18 08:00 12/31/18 08:00 12/31/18 08:00 Laboratory Results - last 24 hr 12/28/18 13:35: POC Glucose 46 L* 12/28/18 14:08: POC Glucose 43 L* 12/30/18 11:29: POC Glucose 156 H 12/30/18 16:21: POC Glucose 166 H 12/30/18 21:46: POC Glucose 145 H 12/31/18 05:45: WBC 6.6, RBC 2.99 L, Hgb 8.8 L, Hct 28.6 L, MCV 95.8, MCH 29.5, MCHC 30.7 L, RDW 13.8, Plt Count 256, MPV 7.3 L, Neut % (Auto) 76.3, Lymph % (Auto) 9.7 L, Barber % (Auto) 5.6, Eos % (Auto) 7.9, Baso % (Auto) 0.6, Neut # (Auto) 5.0, Lymph # (Auto) 0.6 L, Barber # (Auto) 0.4, Eos # (Auto) 0.5 H, Baso # (Auto) 0.0 12/31/18 05:45: Sodium 137, Potassium 6.2 H*, Chloride 107, Carbon Dioxide 23, Anion Gap 13.2, BUN 23 H, Creatinine 1.15 H, Estimated Creat Clear 67, Estimated GFR 48 L, Est GFR ( Amer) 58 L, Glucose 150 H, Calcium 8.5 12/31/18 07:03: POC Glucose 149 H I & O for Last 24 hours: Intake & Output 12/28/18 12/29/18 12/30/18 12/31/18 11:59 11:59 11:59 11:59 Intake Total 240 / 240 1480 / 1480 3262 / 3262 953 / 953 Balance 240 / 240 1480 / 1480 3262 / 3262 953 / 953 Weight 176 lb 176 lb 187 lb 2 oz Microbiology Reports for the Last 24 Hours: Microbiology 12/28/18 15:03 Foot,Right - Right Gram Stain - Final 12/28/18 15:03 Foot,Right - Right Surgical Biopsy Culture - Preliminary Klebsiella pneumoniae Gram Positive Cocci 12/28/18 15:03 Toe,Second Right Gram Stain - Final 12/28/18 15:03 Toe,Second Right Surgical Biopsy Culture - Preliminary Klebsiella pneumoniae Enterococcus faecalis Gram Negative Rods 12/28/18 15:17 Foot,Right - Right Gram Stain - Final 12/28/18 15:17 Foot,Right - Right Surgical Biopsy Culture - Preliminary Klebsiella pneumoniae 12/28/18 15:17 Foot,Right - Right Gram Stain - Final 12/28/18 15:17 Foot,Right - Right Surgical Biopsy Culture - Final Klebsiella pneumoniae - Constitutional no acute distress - *Routine Respiratory Exam Present: decreased breath sounds - *Routine Cardiovascular Exam Present: RRR - *Routine Abdominal Exam Present: soft, normoactive bowel sounds, tenderness (epigastric area) - *Routine Extremities Exam Comments: right foot with dressing in place Assessment and Plan (1) Gangrene of right foot Current visit: Yes Status: Acute Category: Medical Code(s): I96 - Gangrene, not elsewhere classified (2) Pneumonia Current visit: Yes Status: Acute Category: Medical Code(s): J18.9 - Pneumonia, unspecified organism (3) Cellulitis of right foot Current visit: Yes Status: Acute Category: Medical Code(s): L03.115 - Cellulitis of right lower limb (4) Diabetic foot infection Current visit: No Status: Acute Category: Medical Code(s): E11.628 - Type 2 diabetes mellitus with other skin complications; L08.9 - Local infection of the skin and subcutaneous tissue, unspecified (5) Osteomyelitis of foot, right, acute Current visit: Yes Status: Acute Category: Medical Code(s): M86.171 - Other acute osteomyelitis, right ankle and foot (6) PAD (peripheral artery disease) Current visit: Yes Status: Acute Category: Medical Code(s): I73.9 - Peripheral vascular disease, unspecified (7) History of left below knee amputation Current visit: Yes Status: Acute Category: Medical Code(s): Z89.512 - Acquired absence of left leg below knee (8) Diabetic nephropathy Current visit: Yes Status: Chronic Category: Medical Code(s): E11.21 - Type 2 diabetes mellitus with diabetic nephropathy (9) GERD (gastroesophageal reflux disease) Current visit: Yes Status: Chronic Category: Medical Code(s): K21.9 - Gastro-esophageal reflux disease without esophagitis (10) Diabetic retinopathy Current visit: Yes Status: Chronic Category: Medical Code(s): E11.319 - Type 2 diabetes mellitus with unspecified diabetic retinopathy without macular edema (11) GAVE (gastric antral vascular ectasia) Current visit: Yes Status: Chronic Category: Medical Code(s): K31.819 - Angiodysplasia of stomach and duodenum without bleeding (12) Cardiovascular disease Current visit: Yes Status: Chronic Category: Medical Code(s): I25.10 - Atherosclerotic heart disease of [place] coronary artery without angina pectoris (13) Hypertension Current visit: Yes Status: Chronic Category: Medical Code(s): I10 - Essential (primary) hypertension (14) Depression Current visit: Yes Status: Chronic Category: Medical Code(s): F32.9 - Major depressive disorder, single episode, unspecified (15) Environmental allergies Current visit: Yes Status: Chronic Category: Medical Code(s): Z91.09 - Other allergy status, other than to drugs and biological substances (16) Diastolic heart failure Current visit: Yes Status: Chronic Category: Medical Code(s): I50.30 - Unspecified diastolic (congestive) heart failure (17) Chronic anemia Current visit: Yes Status: Acute Category: Medical Code(s): D64.9 - Anemia, unspecified (18) Aortic stenosis Current visit: Yes Status: Acute Category: Medical Code(s): I35.0 - Nonrheumatic aortic (valve) stenosis - Assessment and plan all Dx Assessment and Plan for all problems:: Patient's H&H has further decreased and her potassium is elevated this morning. Will discuss further care with Dr. Nicole. <Cherie Nicole - Last Filed: 12/31/18 10:17> Exam Vital signs and Labs for Last 24 Hours: Temp Pulse Resp BP Pulse Ox 97.9 F 72 18 172/84 H 93 L 03/15/19 08:00 12/31/18 08:00 12/31/18 08:00 12/31/18 08:00 12/31/18 08:00 Laboratory Results - last 24 hr 12/28/18 13:35: POC Glucose 46 L* 12/28/18 14:08: POC Glucose 43 L* 12/30/18 11:29: POC Glucose 156 H 12/30/18 16:21: POC Glucose 166 H 12/30/18 21:46: POC Glucose 145 H 12/31/18 05:45: WBC 6.6, RBC 2.99 L, Hgb 8.8 L, Hct 28.6 L, MCV 95.8, MCH 29.5, MCHC 30.7 L, RDW 13.8, Plt Count 256, MPV 7.3 L, Neut % (Auto) 76.3, Lymph % (Auto) 9.7 L, Barber % (Auto) 5.6, Eos % (Auto) 7.9, Baso % (Auto) 0.6, Neut # (Auto) 5.0, Lymph # (Auto) 0.6 L, Barber # (Auto) 0.4, Eos # (Auto) 0.5 H, Baso # (Auto) 0.0 12/31/18 05:45: Sodium 137, Potassium 6.2 H*, Chloride 107, Carbon Dioxide 23, Anion Gap 13.2, BUN 23 H, Creatinine 1.15 H, Estimated Creat Clear 67, Estimated GFR 48 L, Est GFR ( Amer) 58 L, Glucose 150 H, Calcium 8.5 12/31/18 07:03: POC Glucose 149 H I & O for Last 24 hours: Intake & Output 12/28/18 12/29/18 12/30/18 12/31/18 11:59 11:59 11:59 11:59 Intake Total 240 / 240 1480 / 1480 3262 / 3262 953 / 953 Balance 240 / 240 1480 / 1480 3262 / 3262 953 / 953 Weight 176 lb 176 lb 187 lb 2 oz Microbiology Reports for the Last 24 Hours: Microbiology 12/28/18 15:03 Foot,Right - Right Gram Stain - Final 12/28/18 15:03 Foot,Right - Right Surgical Biopsy Culture - Preliminary Klebsiella pneumoniae Gram Positive Cocci 12/28/18 15:03 Toe,Second Right Gram Stain - Final 12/28/18 15:03 Toe,Second Right Surgical Biopsy Culture - Preliminary Klebsiella pneumoniae Enterococcus faecalis Gram Negative Rods 12/28/18 15:17 Foot,Right - Right Gram Stain - Final 12/28/18 15:17 Foot,Right - Right Surgical Biopsy Culture - Preliminary Klebsiella pneumoniae 12/28/18 15:17 Foot,Right - Right Gram Stain - Final 12/28/18 15:17 Foot,Right - Right Surgical Biopsy Culture - Final Klebsiella pneumoniae Assessment and Plan (1) Osteomyelitis of foot, right, acute Current visit: Yes Status: Acute Category: Medical Code(s): M86.171 - Other acute osteomyelitis, right ankle and foot (2) Gangrene of right foot Current visit: Yes Status: Acute Category: Medical Code(s): I96 - Gangrene, not elsewhere classified (3) Pneumonia Current visit: Yes Status: Acute Category: Medical Code(s): J18.9 - Pneumonia, unspecified organism (4) Cellulitis of right foot Current visit: Yes Status: Acute Category: Medical Code(s): L03.115 - Cellulitis of right lower limb (5) Diabetic foot infection Current visit: No Status: Acute Category: Medical Code(s): E11.628 - Type 2 diabetes mellitus with other skin complications; L08.9 - Local infection of the skin and subcutaneous tissue, unspecified (6) PAD (peripheral artery disease) Current visit: Yes Status: Acute Category: Medical Code(s): I73.9 - Peripheral vascular disease, unspecified (7) History of left below knee amputation Current visit: Yes Status: Acute Category: Medical Code(s): Z89.512 - Acquired absence of left leg below knee (8) Diabetic nephropathy Current visit: Yes Status: Chronic Category: Medical Code(s): E11.21 - Type 2 diabetes mellitus with diabetic nephropathy (9) GERD (gastroesophageal reflux disease) Current visit: Yes Status: Chronic Category: Medical Code(s): K21.9 - Gastro-esophageal reflux disease without esophagitis (10) Diabetic retinopathy Current visit: Yes Status: Chronic Category: Medical Code(s): E11.319 - Type 2 diabetes mellitus with unspecified diabetic retinopathy without macular edema (11) GAVE (gastric antral vascular ectasia) Current visit: Yes Status: Chronic Category: Medical Code(s): K31.819 - Angiodysplasia of stomach and duodenum without bleeding (12) Cardiovascular disease Current visit: Yes Status: Chronic Category: Medical Code(s): I25.10 - Atherosclerotic heart disease of [place] coronary artery without angina pectoris (13) Hypertension Current visit: Yes Status: Chronic Category: Medical Code(s): I10 - Essential (primary) hypertension (14) Depression Current visit: Yes Status: Chronic Category: Medical Code(s): F32.9 - Major depressive disorder, single episode, unspecified (15) Environmental allergies Current visit: Yes Status: Chronic Category: Medical Code(s): Z91.09 - Oth er allergy status, other than to drugs and biological substances (16) Diastolic heart failure Current visit: Yes Status: Chronic Category: Medical Code(s): I50.30 - Unspecified diastolic (congestive) heart failure (17) Chronic anemia Current visit: Yes Status: Acute Category: Medical Code(s): D64.9 - Anemia, unspecified (18) Aortic stenosis Current visit: Yes Status: Acute Category: Medical Code(s): I35.0 - Nonrheumatic aortic (valve) stenosis - Assessment and plan all Dx Assessment and Plan for all problems:: Agree with above with my A/P 1. Osteomyelitis of right foot 2/2 klebsialla and enterococcus faecalis -s/p toe amputations; continue IV vancomycin and Po levaquin, will get PICC line today as she will need 6 weeks of abx 2. T2DM - continue home meds 3. Severe PAD - cardiology on board 4. GI prophylaxis - n protonix 5. DVT prophylaxis scd/teds Dispo: possible dc to [facility] today with abx for 6 weeks. F/u with Dr. Heath in a week.
--- NOTE | 2018-12-31 10:16 | Progress Note ---
Subjective Date: 12/31/18 Time: 09:10 Principal diagnosis: R 2nd toe gangrene, PAD, cellulitis, osteomyelitis Interval history: Patient resting comfortably in bed. Reports nausea. Denies foot pain. PN: Obj Ex Vital signs: Temp Pulse Resp BP Pulse Ox 97.9 F 72 18 172/84 H 93 L 12/31/18 08:00 12/31/18 08:00 12/31/18 08:00 12/31/18 08:00 12/31/18 08:00 - Constitutional no acute distress - Routine HEENT Exam Head: Present: normocephalic - Routine Respiratory Exam Absent: respiratory distress - Detailed Lower Extremity Exam Comments: Right foot amp site has sutures and norah clean dry and intact. Dusky skin noted to dorsal central amp site. Mild POP. Decreased edema and erythema noted to the amputation site. Decreased edema noted to the RLE. The right heel has no pressure ulcer but there is some pinkness to the skin. Skin temp wnl. No calf or thigh pain noted. Progress Note: A&P (1) Gangrene of right foot Status: Acute Current Visit: Yes (2) Pneumonia Status: Acute Current Visit: Yes (3) Cellulitis of right foot Status: Acute Current Visit: Yes (4) Diabetic foot infection Status: Acute Current Visit: No (5) Osteomyelitis of foot, right, acute Status: Acute Current Visit: Yes (6) PAD (peripheral artery disease) Status: Acute Current Visit: Yes (7) History of left below knee amputation Status: Acute Current Visit: Yes (8) Diabetic nephropathy Status: Chronic Current Visit: Yes (9) GERD (gastroesophageal reflux disease) Status: Chronic Current Visit: Yes (10) Diabetic retinopathy Status: Chronic Current Visit: Yes (11) GAVE (gastric antral vascular ectasia) Status: Chronic Current Visit: Yes (12) Cardiovascular disease Status: Chronic Current Visit: Yes (13) Hypertension Status: Chronic Current Visit: Yes (14) Depression Status: Chronic Current Visit: Yes (15) Environmental allergies Status: Chronic Current Visit: Yes (16) Diastolic heart failure Status: Chronic Current Visit: Yes (17) Chronic anemia Status: Acute Current Visit: Yes (18) Aortic stenosis Status: Acute Current Visit: Yes Assessment and Plan for All Diagnoses:: 12/28/18, s/p right foot I&D, foreign body excision, transmetatarsal amputation POD #3 Intra-op cultures 12/28/18: GPC, GNR 1. Dressing changed at bedside: skin tucker at central incision, cleaned with betadine. No new SOI. Concerned over healing potential 2. Maintain dsg C/D/I 3. Suspend right heel off pillow (avoid pressure heel ulcer) 4. NWB in wheelchair 5. Continue IV Abx 6. Nurse to do bedside betadine dry sterile dressing changes 7. Discussed case with Harry Akins regarding abnormal ABIs and L BKA history. High risk for R proximal amp/BKA. Defer to cardio, possible revasc
--- NOTE | 2018-12-31 10:36 | Consult Report ---
Addendum entered and electronically signed by MELISSA Kendall 12/31/18 13:51: Repeat K is 6.2 this afternoon. Will cancel abdominal aortogram/LE runoff due to risk of contrast induced nephropathy with resultant worsening hyperkalemia and arrhythmias. Will consider it Thursday if still needed. No REGAN or ARB due to hyperkalemia. She may need daily diuretics due to Cardiomyopathy and risk for CHF. Addendum entered and electronically signed by MELISSA Kendall 12/31/18 11:24: Add cardiomyopathy to diagnoses Addendum entered and electronically signed by MELISSA Kendall 12/31/18 11:14: Potassium 6.3 this AM Stop Lisinopril, give IVF and kayexalate once. Increase coreg for BP Repeat BMP in two hours and decide on proceeding with runoff or not. Original Note: History of Present Illness Consult date: 12/31/18 Requesting physician: Akila Heath Chief complaint: PAD with recent right TMA Additional Medical History:: 1. DM, insulin requiring A. Diabetic neuropathy, nephropathy and retinopathy 2. PAD A. Left BKA B. Right TMA, 12/2018 3. HTN A. Echo, 12/2018, Difficult study. Moderate LAE, mildly dilated LV, mild conc LVH with LVEF 30-35% with moderate hypokinesis involving the basal septum, mid to distal septum. Thickened and calcified aortic valve with restricted leaflet mobility and mean gradient across the valve is 30 mm Hg (moderate stenosis) with mild AI. MAC with 5 mm Hg mean gradient consistent with mild MS and there is moderate MR. Mild TR but unable to calculate RVSP. Small pericardial effusion. 4. chronic anemia with Hgb around 9-10 5. Hyperkalemia, 12/2018 History of present illness: 63-year-old white female with history of left BKA was admitted for nonhealing ulcer of the right foot for which she subsequently had right transmetatarsal amputation. She is on Vancomycin for MRSA infection of the foot. Patient now with a dusky appearance of the foot with concern for healing of surgical wound. Cardiology consulted for evaluation and possible lower extremity runoff and intervention if needed. Patient has long standing diabetes with multi-organ damage. [facility] History Medical History: Reports:: Asthma, Atherosclerotic Heart Disease, Congestive Heart Failure, Coronary Artery Disease, Depression, Diabetes Mellitus Type 2, Gastroesophageal Reflux Disease(GERD), Gastrointestinal Bleed, Hyperlipidemia, Hypertension, MRSA, Myocardial Infarction, Peripheral Artery Disease, Peripheral Vascular Disease, Urinary Tract Infection *Have you ever received a pneumonia vaccine?: Yes *Have you received a flu vaccine this season?: Yes Other Medical History: Reports: Anemia, Cataracts Laterality Cases: Right: Cataract, Other Other Surgeries: Yes: Cardiac Catheterization, Cholecystectomy, Colonoscopy Amputation: Yes (left bka, Right great toe. ) Fractures: No - *Social History Educational Level: Attended High School Smoking Status: Never smoker Tobacco Type: cigarettes Alcohol Intake: never Alcohol Intake Frequency:: other *Occupational Status:: disabled Housing: longterm Household Members: other *Travel in the last 8 weeks: None - Psychiatric History Expresses thoughts of harming self/others: None Suicide Plan Description: No Plan Pschychiatric History:: Reports:: Depression Family Hx:: Unable to obtain, Coronary Artery Disease, Heart Attack Meds Home Medications Medication Instructions Recorded Confirmed Type Insulin Lispro [HumaLOG 100 0 units SQ ACHS 06/08/18 12/28/18 History units/mL 3mL vial (SSI)] Lactobacillus acidophilus capsule 10 mg PO DAILY 12/27/18 12/27/18 History azelastine 137 mcg (0.1 %) nasal 1 spray INTRANASAL BID 12/27/18 12/27/18 History spray aerosol carvedilol 3.125 mg tablet 3.125 mg PO BID 12/27/18 12/27/18 History cetirizine 10 mg capsule 10 mg PO DAILY 12/27/18 12/27/18 History citalopram 20 mg tablet 20 mg PO DAILY 12/27/18 12/27/18 History docusate sodium 250 mg capsule 250 mg PO DAILY PRN cap 12/27/18 12/27/18 History ezetimibe 10 mg tablet 10 mg PO DAILY 12/27/18 12/27/18 History ferrous sulfate 325 mg (65 mg 325 mg PO BID tab 12/27/18 12/28/18 History iron) tablet furosemide 20 mg tablet 20 mg PO DAILY 12/27/18 12/27/18 History gabapentin 100 mg capsule 100 mg PO BID 12/27/18 12/28/18 History insulin glargine (U-100) 100 22 unit SQ HS ml 12/27/18 12/28/18 History unit/mL (3 mL) subcutaneous pen lisinopril 10 mg tablet 10 mg PO DAILY 12/27/18 12/27/18 History montelukast 10 mg tablet 10 mg PO HS 12/27/18 12/28/18 History multivitamin,ft-nxib-fobaikmi 1 tab PO DAILY 12/27/18 12/27/18 History tablet omeprazole 20 mg capsule,delayed 20 mg PO DAILY 12/27/18 12/27/18 History release simvastatin 40 mg tablet 40 mg PO HS 12/27/18 12/28/18 History sulfamethoxazole 800 1 tab PO BID tab 12/27/18 12/28/18 History mg-trimethoprim 160 mg tablet Fluticasone Propionate [Flonase 2 spr NS HS 12/28/18 12/28/18 History 50mcg nasal spray 16gm] Fluticasone Propionate [Flovent 2 puffs IH BID 12/28/18 12/28/18 History Hfa 110mcg Inhaler] Allergies Allergy/AdvReac Type Severity Reaction Status Date / Time No Known Allergies Allergy Verified 12/27/18 12:47 Review of Systems - *Cardiovascular Reports shortness of breath with activity, Denies chest pain - *Respiratory Reports shortness of breath with activity - *Gastrointestinal Reports abdominal pain, Denies loose stools - *Genitourinary Denies blood in urine - *Musculoskeletal Reports joint pain, Reports back pain - *Neurologic Reports numbness, Reports tingling/numbness/burning sensations, Reports weakness, Denies abnormal hearing, Denies loss of vision Exam Vital signs and Labs for Last 24 Hours: Temp Pulse Resp BP Pulse Ox 97.9 F 72 18 172/84 H 93 L 12/31/18 08:00 12/31/18 08:00 12/31/18 08:00 12/31/18 08:00 12/31/18 08:00 Laboratory Results - last 24 hr 12/28/18 13:35: POC Glucose 46 L* 12/28/18 14:08: POC Glucose 43 L* 12/30/18 11:29: POC Glucose 156 H 12/30/18 16:21: POC Glucose 166 H 12/30/18 21:46: POC Glucose 145 H 12/31/18 05:45: WBC 6.6, RBC 2.99 L, Hgb 8.8 L, Hct 28.6 L, MCV 95.8, MCH 29.5, MCHC 30.7 L, RDW 13.8, Plt Count 256, MPV 7.3 L, Neut % (Auto) 76.3, Lymph % (Auto) 9.7 L, [place] % (Auto) 5.6, Eos % (Auto) 7.9, Baso % (Auto) 0.6, Neut # (Auto) 5.0, Lymph # (Auto) 0.6 L, [place] # (Auto) 0.4, Eos # (Auto) 0.5 H, Baso # (Auto) 0.0 12/31/18 05:45: Sodium 137, Potassium 6.2 H*, Chloride 107, Carbon Dioxide 23, Anion Gap 13.2, BUN 23 H, Creatinine 1.15 H, Estimated Creat Clear 67, Estimated GFR 48 L, Est GFR ( Amer) 58 L, Glucose 150 H, Calcium 8.5 12/31/18 07:03: POC Glucose 149 H I & O for Last 24 hours: Intake & Output 12/28/18 12/29/18 12/30/18 12/31/18 11:59 11:59 11:59 11:59 Intake Total 240 / 240 1480 / 1480 3262 / 3262 953 / 953 Balance 240 / 240 1480 / 1480 3262 / 3262 953 / 953 Weight 176 lb 176 lb 187 lb 2 oz Microbiology Reports for the Last 24 Hours: Microbiology 12/28/18 15:03 Foot,Right - Right Gram Stain - Final 12/28/18 15:03 Foot,Right - Right Surgical Biopsy Culture - Preliminary Klebsiella pneumoniae Gram Positive Cocci 12/28/18 15:03 Toe,Second Right Gram Stain - Final 12/28/18 15:03 Toe,Second Right Surgical Biopsy Culture - Preliminary Klebsiella pneumoniae Enterococcus faecalis Gram Negative Rods 12/28/18 15:17 Foot,Right - Right Gram Stain - Final 12/28/18 15:17 Foot,Right - Right Surgical Biopsy Culture - Preliminary Klebsiella pneumoniae 12/28/18 15:17 Foot,Right - Right Gram Stain - Final 12/28/18 15:17 Foot,Right - Right Surgical Biopsy Culture - Final Klebsiella pneumoniae - *Routine HEENT Exam Head: Present: normocephalic Eye: Present: EOMI, PERRL ENT: Present: mucous membranes dry - *Routine Respiratory Exam Present: CTA bilaterally, diminished air movement. Absent: accessory muscle use, rales, rhonchi, wheezes - *Routine Cardiovascular Exam Present: RRR, murmur. Absent: gallop, rubs - *Routine Abdominal Exam Present: soft. Absent: tenderness, distended, guarding - *Routine Extremities Exam Present: edema. Absent: calf tenderness Comments: Left BKA Right leg warm Femoral and popliteal pulses not appreciable. Pulses located in femoral area with doppler. - *Routine Neurological Exam Present: alert, oriented X3, moving all extremities Assessment and Plan (1) Osteomyelitis of foot, right, acute Current visit: Yes Status: Acute Category: Medical Code(s): M86.171 - Other acute osteomyelitis, right ankle and foot (2) Gangrene of right foot Current visit: Yes Status: Acute Category: Medical Code(s): I96 - Gangrene, not elsewhere classified (3) Pneumonia Current visit: Yes Status: Acute Category: Medical Code(s): J18.9 - Pneumonia, unspecified organism (4) Cellulitis of right foot Current visit: Yes Status: Acute Category: Medical Code(s): L03.115 - Cellulitis of right lower limb (5) Diabetic foot infection Current visit: No Status: Acute Category: Medical Code(s): E11.628 - Type 2 diabetes mellitus with other skin complications; L08.9 - Local infection of the skin and subcutaneous tissue, unspecified (6) PAD (peripheral artery disease) Current visit: Yes Status: Acute Category: Medical Code(s): I73.9 - Peripheral vascular disease, unspecified (7) History of left below knee amputation Current visit: Yes Status: Acute Category: Medical Code(s): Z89.512 - Acquired absence of left leg below knee (8) Diabetic nephropathy Current visit: Yes Status: Chronic Category: Medical Code(s): E11.21 - Type 2 diabetes mellitus with diabetic nephropathy (9) GERD (gastroesophageal reflux disease) Current visit: Yes Status: Chronic Category: Medical Code(s): K21.9 - Gastro-esophageal reflux disease without esophagitis (10) Diabetic retinopathy Current visit: Yes Status: Chronic Category: Medical Code(s): E11.319 - Type 2 diabetes mellitus with unspecified diabetic retinopathy without macular edema (11) GAVE (gastric antral vascular ectasia) Current visit: Yes Status: Chronic Category: Medical Code(s): K31.819 - Angiodysplasia of stomach and duodenum without bleeding (12) Cardiovascular disease Current visit: Yes Status: Chronic Category: Medical Code(s): I25.10 - Atherosclerotic heart disease of [place] coronary artery without angina pectoris (13) Hypertension Current visit: Yes Status: Chronic Category: Medical Code(s): I10 - Essential (primary) hypertension (14) Depression Current visit: Yes Status: Chronic Category: Medical Code(s): F32.9 - Major depressive disorder, single episode, unspecified (15) Environmental allergies Current visit: Yes Status: Chronic Category: Medical Code(s): Z91.09 - Other allergy status, other than to drugs and biological substances (16) Diastolic heart failure Current visit: Yes Status: Chronic Category: Medical Code(s): I50.30 - Unspecified diastolic (congestive) heart failure (17) Chronic anemia Current visit: Yes Status: Acute Category: Medical Code(s): D64.9 - Anemia, unspecified (18) Aortic stenosis Current visit: Yes Status: Acute Category: Medical Code(s): I35.0 - Nonrheumatic aortic (valve) stenosis - Assessment and plan all Dx Assessment and Plan for all problems:: 1. Will proceed with LE runoff of right leg today. Will attempt right radial approach.
[2018-12-31 13:33] LABS: Anion Gap 14.2 mEq/L (5-15); Calcium 8.9 mg/dL (8.5-10.1)
[2018-12-31 13:35] LABS: Potassium 6.2 mmoL/L (3.5-5.1)
[2019-01-01 05:57] LABS: Basophils % 0.3 % (0.1-2.0); Eosinophils # 0.4 K/mm3 (0.0-0.4); Eosinophils % 5.5 % (0.1-12.0); Lymphocytes # 0.7 K/mm3 (0.7-4.5); Lymphocytes % 9.7 % (10-50); Mean Corpuscular HGB Conc 33.9 g/dL (31.8-35.4); Mean Corpuscular Hemoglobin 31.9 pg (27.0-31.2); Mean Corpuscular Volume 94.2 fl (81-99); Mean Platelet Volume 7.6 fl (7.4-10.4); Monocytes # 0.5 K/mm3 (0.1-1.0); Monocytes % 6.5 % (1.7-9.3); Neutrophils # 5.4 K/mm3 (1.8-7.8); Neutrophils % 78.1 % (37.0-80.0); Platelet Count 237 K/mm3 (142-424); Red Blood Count 3.03 M/mm3 (4.20-5.40); Red Cell Distribution Width 13.5 % (11.5-17.5); White Blood Count 6.9 K/mm3 (4.8-10.8)
[2019-01-01 06:00] LABS: Hematocrit 28.6 % (37.0-47.0); Hemoglobin 9.7 g/dL (12.2-16.2)
[2019-01-01 06:12] LABS: Albumin Level 2.2 gm/dL (3.4-5.0); Albumin/Globulin Ratio 0.6 (1.1-1.8); Anion Gap 13.4 mEq/L (5-15); Bilirubin,Total 0.3 mg/dL (0.2-1.0); Calcium 8.6 mg/dL (8.5-10.1); Potassium 5.4 mmoL/L (3.5-5.1); Total Protein,Serum 6.2 gm/dL (6.4-8.2)
--- NOTE | 2019-01-01 08:25 | Progress Note ---
<Love Haider - Last Filed: 01/01/19 08:22> Internal Medicine - PN: Subj *Date: 01/01/19 *Time: 08:22 Interval history: Patient states she feels bad this morning. She remains nauseated but has not vomited. She states she is hurting her mid abdomen. She has started wheezing this morning. She did not rest well last night. She states she ate very little breakfast. Exam Vital signs and Labs for Last 24 Hours: Temp Pulse Resp BP Pulse Ox 97.7 F 76 20 169/69 H 93 L 01/01/19 08:00 01/01/19 08:00 01/01/19 08:00 01/01/19 08:00 01/01/19 08:00 Laboratory Results - last 24 hr 12/31/18 10:30: Potassium 6.3 H* 12/31/18 11:15: POC Glucose 151 H 12/31/18 13:15: Sodium 138, Potassium 6.2 H*, Chloride 107, Carbon Dioxide 23, Anion Gap 14.2, BUN 21 H, Creatinine 1.14 H, Estimated Creat Clear 68, Estimated GFR 48 L, Est GFR ( Amer) 58 L, Glucose 178 H, Calcium 8.9 12/31/18 16:40: POC Glucose 201 H 12/31/18 21:00: POC Glucose 171 H 01/01/19 05:35: WBC 6.9, RBC 3.03 L, Hgb 9.7 L D, Hct 28.6 L, MCV 94.2, MCH 31.9 H, MCHC 33.9, RDW 13.5, Plt Count 237, MPV 7.6, Neut % (Auto) 78.1, Lymph % (Auto) 9.7 L, [place] % (Auto) 6.5, Eos % (Auto) 5.5, Baso % (Auto) 0.3, Neut # (Auto) 5.4, Lymph # (Auto) 0.7, [place] # (Auto) 0.5, Eos # (Auto) 0.4, Baso # (Auto) 0.0 01/01/19 05:35: Sodium 138, Potassium 5.4 H, Chloride 108 H, Carbon Dioxide 22, Anion Gap 13.4, BUN 18, Creatinine 0.97, Estimated Creat Clear 77, Estimated GFR 58 L, Est GFR ( Amer) 70 D, Glucose 139 H D, Calcium 8.6, Total Bilirubin 0.3, AST 17, ALT 12, Alkaline Phosphatase 112, Total Protein 6.2 L, Albumin 2.2 L, Globulin 4.0 H, Albumin/Globulin Ratio 0.6 L 01/01/19 06:16: POC Glucose 139 H I & O for Last 24 hours: Intake & Output 12/29/18 12/30/18 12/31/18 01/01/19 11:59 11:59 11:59 11:59 Intake Total 1480 / 1480 3262 / 3262 953 / 953 3633 / 3633 Balance 1480 / 1480 3262 / 3262 953 / 953 3633 / 3633 Weight 176 lb 187 lb 2 oz 190 lb 3 oz Microbiology Reports for the Last 24 Hours: Microbiology 12/28/18 15:03 Foot,Right - Right Gram Stain - Final 12/28/18 15:03 Foot,Right - Right Surgical Biopsy Culture - Preliminary Klebsiella pneumoniae Enterococcus faecalis Gram Positive Cocci 12/28/18 15:17 Foot,Right - Right Gram Stain - Final 12/28/18 15:17 Foot,Right - Right Surgical Biopsy Culture - Final Klebsiella pneumoniae Enterococcus faecalis Staphylococcus warneri 12/28/18 15:03 Toe,Second Right Gram Stain - Final 12/28/18 15:03 Toe,Second Right Surgical Biopsy Culture - Final Klebsiella pneumoniae Enterococcus faecalis Proteus mirabilis 12/28/18 15:17 Foot,Right - Right Gram Stain - Final 12/28/18 15:17 Foot,Right - Right Surgical Biopsy Culture - Final Klebsiella pneumoniae Radiology Reports for the Last 24 Hours: CXR 1. Good placement of the PICC line. 2. Bilateral lower lobe pneumonia slightly worse on the left - Constitutional chronically ill appearing - *Routine Respiratory Exam Present: wheezes (bilateral), crackles (bibasilar) - *Routine Cardiovascular Exam Present: RRR - *Routine Abdominal Exam Present: soft, normoactive bowel sounds, tenderness (epigastric and periumbilical area) - *Routine Extremities Exam Present: amputation (left lower leg, right foot in a dressing) Assessment and Plan (1) Osteomyelitis of foot, right, acute Current visit: Yes Status: Acute Category: Medical Code(s): M86.171 - Other acute osteomyelitis, right ankle and foot (2) Gangrene of right foot Current visit: Yes Status: Acute Category: Medical Code(s): I96 - Gangrene, not elsewhere classified (3) Pneumonia Current visit: Yes Status: Acute Category: Medical Code(s): J18.9 - Pneumonia, unspecified organism (4) Cellulitis of right foot Current visit: Yes Status: Acute Category: Medical Code(s): L03.115 - Cellulitis of right lower limb (5) Diabetic foot infection Current visit: No Status: Acute Category: Medical Code(s): E11.628 - Type 2 diabetes mellitus with other skin complications; L08.9 - Local infection of the skin and subcutaneous tissue, unspecified (6) PAD (peripheral artery disease) Current visit: Yes Status: Acute Category: Medical Code(s): I73.9 - Pe ripheral vascular disease, unspecified (7) History of left below knee amputation Current visit: Yes Status: Acute Category: Medical Code(s): Z89.512 - Acquired absence of left leg below knee (8) Diabetic nephropathy Current visit: Yes Status: Chronic Category: Medical Code(s): E11.21 - Type 2 diabetes mellitus with diabetic nephropathy (9) GERD (gastroesophageal reflux disease) Current visit: Yes Status: Chronic Category: Medical Code(s): K21.9 - Gastro-esophageal reflux disease without esophagitis (10) Diabetic retinopathy Current visit: Yes Status: Chronic Category: Medical Code(s): E11.319 - Type 2 diabetes mellitus with unspecified diabetic retinopathy without macular edema (11) GAVE (gastric antral vascular ectasia) Current visit: Yes Status: Chronic Category: Medical Code(s): K31.819 - Angiodysplasia of stomach and duodenum without bleeding (12) Cardiovascular disease Current visit: Yes Status: Chronic Category: Medical Code(s): I25.10 - Atherosclerotic heart disease of [place] coronary artery without angina pectoris (13) Hypertension Current visit: Yes Status: Chronic Category: Medical Code(s): I10 - Essential (primary) hypertension (14) Depression Current visit: Yes Status: Chronic Category: Medical Code(s): F32.9 - Major depressive disorder, single episode, unspecified (15) Environmental allergies Current visit: Yes Status: Chronic Category: Medical Code(s): Z91.09 - Other allergy status, other than to drugs and biological substances (16) Diastolic heart failure Current visit: Yes Status: Chronic Category: Medical Code(s): I50.30 - Unspecified diastolic (congestive) heart failure (17) Chronic anemia Current visit: Yes Status: Acute Category: Medical Code(s): D64.9 - Anemia, unspecified (18) Aortic stenosis Current visit: Yes Status: Acute Category: Medical Code(s): I35.0 - Nonrheumatic aortic (valve) stenosis - Assessment and plan all Dx Assessment and Plan for all problems:: Patient's chest x-ray from yesterday shows a slightly worsening pneumonia. H&H is improved and potassium is decreasing. Patient will need continued antibiotics for her osteomyelitis. Will discuss further care with Dr. Griffith. <Abhijit Griffith - Last Filed: 01/01/19 12:07> Exam Vital signs and Labs for Last 24 Hours: Temp Pulse Resp BP Pulse Ox 98.3 F 72 17 155/67 H 92 L 01/01/19 11:25 01/01/19 11:25 01/01/19 11:25 01/01/19 11:25 01/01/19 11:25 Laboratory Results - last 24 hr 12/31/18 11:15: POC Glucose 151 H 12/31/18 13:15: Sodium 138, Potassium 6.2 H*, Chloride 107, Carbon Dioxide 23, Anion Gap 14.2, BUN 21 H, Creatinine 1.14 H, Estimated Creat Clear 68, Estimated GFR 48 L, Est GFR ( Amer) 58 L, Glucose 178 H, Calcium 8.9 12/31/18 16:40: POC Glucose 201 H 12/31/18 21:00: POC Glucose 171 H 01/01/19 05:35: WBC 6.9, RBC 3.03 L, Hgb 9.7 L D, Hct 28.6 L, MCV 94.2, MCH 31.9 H, MCHC 33.9, RDW 13.5, Plt Count 237, MPV 7.6, Neut % (Auto) 78.1, Lymph % (Auto) 9.7 L, [place] % (Auto) 6.5, Eos % (Auto) 5.5, Baso % (Auto) 0.3, Neut # (Auto) 5.4, Lymph # (Auto) 0.7, [place] # (Auto) 0.5, Eos # (Auto) 0.4, Baso # (Auto) 0.0 01/01/19 05:35: Sodium 138, Potassium 5.4 H, Chloride 108 H, Carbon Dioxide 22, Anion Gap 13.4, BUN 18, Creatinine 0.97, Estimated Creat Clear 77, Estimated GFR 58 L, Est GFR ( Amer) 70 D, Glucose 139 H D, Calcium 8.6, Total Bilirubin 0.3, AST 17, ALT 12, Alkaline Phosphatase 112, Total Protein 6.2 L, Albumin 2.2 L, Globulin 4.0 H, Albumin/Globulin Ratio 0.6 L 01/01/19 06:16: POC Glucose 139 H 01/01/19 10:58: POC Glucose 133 H I & O for Last 24 hours: Intake & Output 12/30/18 12/31/18 01/01/19 01/02/19 11:59 11:59 11:59 11:59 Intake Total 3262 / 3262 953 / 953 3633 / 3633 Balance 3262 / 3262 953 / 953 3633 / 3633 Weight 176 lb 187 lb 2 oz 190 lb 3 oz Microbiology Reports for the Last 24 Hours: Microbiology 12/28/18 15:03 Foot,Right - Right Gram Stain - Final 12/28/18 15:03 Foot,Right - Right Surgical Biopsy Culture - Preliminary Klebsiella pneumoniae Enterococcus faecalis Gram Positive Cocci 12/28/18 15:17 Foot,Right - Right Gram Stain - Final 12/28/18 15:17 Foot,Right - Right Surgical Biopsy Culture - Final Klebsiella pneumoniae Enterococcus faecalis Staphylococcus warneri 12/28/18 15:03 Toe,Second Right Gram Stain - Final 12/28/18 15:03 Toe,Second Right Surgical Biopsy Culture - Final Klebsiella pneumoniae Enterococcus faecalis Proteus mirabilis Assessment and Plan (1) Osteomyelitis of foot, right, acute Current visit: Yes Status: Acute Category: Medical Code(s): M86.171 - Other acute osteomyelitis, right ankle and foot (2) Gangrene of right foot Current visit: Yes Status: Acute Category: Medical Code(s): I96 - Gangrene, not elsewhere classified (3) Pneumonia Current visit: Yes Status: Acute Category: Medical Code(s): J18.9 - Pneumonia, unspecified organism (4) Cellulitis of right foot Current visit: Yes Status: Acute Category: Medical Code(s): L03.115 - Cellulitis of right lower limb (5) Diabetic foot infection Current visit: No Status: Acute Category: Medical Code(s): E11.628 - Type 2 diabetes mellitus with other skin complications; L08.9 - Local infection of the skin and subcutaneous tissue, unspecified (6) PAD (peripheral artery disease) Current visit: Yes Status: Acute Category: Medical Code(s): I73.9 - Peripheral vascular disease, unspecified (7) History of left below knee amputation Current visit: Yes Status: Acute Category: Medical Code(s): Z89.512 - Acquired absence of left leg below knee (8) Diabetic nephropathy Current visit: Yes Status: Chronic Category: Medical Code(s): E11.21 - Type 2 diabetes mellitus with diabetic nephropathy (9) GERD (gastroesophageal reflux disease) Current visit: Yes Status: Chronic Category: Medical Code(s): K21.9 - Gastro-esophageal reflux disease without esophagitis (10) Diabetic retinopathy Current visit: Yes Status: Chronic Category: Medical Code(s): E11.319 - Type 2 diabetes mellitus with unspecified diabetic retinopathy without macular edema (11) GAVE (gastric antral vascular ectasia) Current visit: Yes Status: Chronic Category: Medical Code(s): K31.819 - Angiodysplasia of stomach and duodenum without bleeding (12) Cardiovascular disease Current visit: Yes Status: Chronic Category: Medical Code(s): I25.10 - Atherosclerotic heart disease of [place] coronary artery without angina pectoris (13) Hypertension Current visit: Yes Status: Chronic Category: Medical Code(s): I10 - Essential (primary) hypertension (14) Depression Current visit: Yes Status: Chronic Category: Medical Code(s): F32.9 - Major depressive disorder, single episode, unspecified (15) Environmental allergies Current visit: Yes Status: Chronic Category: Medical Code(s): Z91.09 - Other allergy status, other than to drugs and biological substances (16) Diastolic heart failure Current visit: Yes Status: Chronic Category: Medical Code(s): I50.30 - Unspecified diastolic (congestive) heart failure (17) Chronic anemia Current visit: Yes Status: Acute Category: Medical Code(s): D64.9 - Anemia, unspecified (18) Aortic stenosis Current visit: Yes Status: Acute Category: Medical Code(s): I35.0 - Nonrheumatic aortic (valve) stenosis - Assessment and plan all Dx Assessment and Plan for all problems:: Patient seen and examined. He CC to me is low back ache, likely from being in bed since admission. On lung exam, her BS are diminished in the left base but I hear no rales or wheezes. She is still not eating much due to c/o nausea. Will add Reglan as she likely has some component of diabetic gastroparesis. Her K+ has improved but still high. Will give another dose of Kayexalate. Encourage patient to be out of bed in chair.
[2019-01-02 07:21] LABS: Anion Gap 11.9 mEq/L (5-15); Calcium 8.4 mg/dL (8.5-10.1); Potassium 4.9 mmoL/L (3.5-5.1)
--- NOTE | 2019-01-02 08:56 | Progress Note ---
Internal Medicine - PN: Subj Interval history: She continues to complain of simply not feeling well but no specific complaints. Nursing staff had her up in the chair yesterday but after only a few minutes she begged to go back to bed stating that her "bottom was hurting". She has some redness of the sacrum but no breakdown. She denies cough or shortness of breath. She is still not eating much. She states her bowels have been moving. No diarrhea. Exam Vital signs and Labs for Last 24 Hours: Temp Pulse Resp BP Pulse Ox 98.3 F 71 17 147/68 H 93 L 01/02/19 07:57 01/02/19 07:57 01/02/19 07:57 01/02/19 07:57 01/02/19 07:57 Laboratory Results - last 24 hr 01/01/19 10:58: POC Glucose 133 H 01/01/19 15:30: Vancomycin Trough 17.7 01/01/19 16:40: POC Glucose 127 H 01/01/19 22:00: POC Glucose 204 H 01/02/19 06:13: POC Glucose 101 01/02/19 06:32: Sodium 140, Potassium 4.9, Chloride 109 H, Carbon Dioxide 24, Anion Gap 11.9, BUN 16, Creatinine 1.02, Estimated Creat Clear 78, Estimated GFR 55 L, Est GFR ( Amer) 66, Glucose 105, Calcium 8.4 L I & O for Last 24 hours: Intake & Output 12/30/18 12/31/18 01/01/19 01/02/19 11:59 11:59 11:59 11:59 Intake Total 3262 / 3262 953 / 953 3633 / 3633 2435 / 2435 Balance 3262 / 3262 953 / 953 3633 / 3633 2435 / 2435 Weight 176 lb 187 lb 2 oz 190 lb 3 oz 192 lb 6 oz Microbiology Reports for the Last 24 Hours: Microbiology 12/28/18 15:03 Foot,Right - Right Gram Stain - Final 12/28/18 15:03 Foot,Right - Right Surgical Biopsy Culture - Final Klebsiella pneumoniae Enterococcus faecalis Staphylococcus aureus 12/28/18 15:17 Foot,Right - Right Gram Stain - Final 12/28/18 15:17 Foot,Right - Right Surgical Biopsy Culture - Final Klebsiella pneumoniae Enterococcus faecalis Staphylococcus warneri 12/28/18 15:03 Toe,Second Right Gram Stain - Final 12/28/18 15:03 Toe,Second Right Surgical Biopsy Culture - Final Klebsiella pneumoniae Enterococcus faecalis Proteus mirabilis Narrative: Affect is flat. She appears in no acute distress. Lungs are clear anteriorly. There are diminished breath sounds in the left base. Heart is regular. Abdomen is soft and nondistended with no tenderness. Assessment and Plan (1) Osteomyelitis of foot, right, acute Current visit: Yes Status: Acute Category: Medical Code(s): M86.171 - Other acute osteomyelitis, right ankle and foot (2) Gangrene of right foot Current visit: Yes Status: Acute Category: Medical Code(s): I96 - Gangrene, not elsewhere classified (3) Pneumonia Current visit: Yes Status: Acute Category: Medical Code(s): J18.9 - Pneumonia, unspecified organism (4) Cellulitis of right foot Current visit: Yes Status: Acute Category: Medical Code(s): L03.115 - Cellulitis of right lower limb (5) Diabetic foot infection Current visit: No Status: Acute Category: Medical Code(s): E11.628 - Type 2 diabetes mellitus with other skin complications; L08.9 - Local infection of t he skin and subcutaneous tissue, unspecified (6) PAD (peripheral artery disease) Current visit: Yes Status: Acute Category: Medical Code(s): I73.9 - Peripheral vascular disease, unspecified (7) History of left below knee amputation Current visit: Yes Status: Acute Category: Medical Code(s): Z89.512 - Acquired absence of left leg below knee (8) Diabetic nephropathy Current visit: Yes Status: Chronic Category: Medical Code(s): E11.21 - Type 2 diabetes mellitus with diabetic nephropathy (9) GERD (gastroesophageal reflux disease) Current visit: Yes Status: Chronic Category: Medical Code(s): K21.9 - Gastro-esophageal reflux disease without esophagitis (10) Diabetic retinopathy Current visit: Yes Status: Chronic Category: Medical Code(s): E11.319 - Type 2 diabetes mellitus with unspecified diabetic retinopathy without macular edema (11) GAVE (gastric antral vascular ectasia) Current visit: Yes Status: Chronic Category: Medical Code(s): K31.819 - Angiodysplasia of stomach and duodenum without bleeding (12) Cardiovascular disease Current visit: Yes Status: Chronic Category: Medical Code(s): I25.10 - Atherosclerotic heart disease of [place] coronary artery without angina pectoris (13) Hypertension Current visit: Yes Status: Chronic Category: Medical Code(s): I10 - Essential (primary) hypertension (14) Depression Current visit: Yes Status: Chronic Category: Medical Code(s): F32.9 - Major depressive disorder, single episode, unspecified (15) Environmental allergies Current visit: Yes Status: Chronic Category: Medical Code(s): Z91.09 - Other allergy status, other than to drugs and biological substances (16) Diastolic heart failure Current visit: Yes Status: Chronic Category: Medical Code(s): I50.30 - Unspecified diastolic (congestive) heart failure (17) Chronic anemia Current visit: Yes Status: Acute Category: Medical Code(s): D64.9 - Anemia, unspecified (18) Aortic stenosis Current visit: Yes Status: Acute Category: Medical Code(s): I35.0 - Nonrheumatic aortic (valve) stenosis - Assessment and plan all Dx Assessment and Plan for all problems:: Continue per current orders. She is again encouraged to be up in the chair for a while longer today. She has been instructed on incentive spirometry and is doing reasonably well.
--- NOTE | 2019-01-02 10:55 | Pharmacy Consult Notes ---
- Pharmacy Consult Date: 01/02/19 Time: 10:54 Referring provider: DR. PAGAN/ADEEL Reason for Consult:: VANCOMYCIN TROUGH LEVEL Allergies and ADEs:: Allergies Allergy/AdvReac Type Severity Reaction Status Date / Time No Known Allergies Allergy Verified 12/27/18 12:47 Home Medications:: Home Medications Medication Instructions Recorded Confirmed Type Insulin Lispro [HumaLOG 100 0 units SQ ACHS 06/08/18 12/28/18 History units/mL 3mL vial (SSI)] Lactobacillus acidophilus capsule 10 mg PO DAILY 12/27/18 12/27/18 History azelastine 137 mcg (0.1 %) nasal 1 spray INTRANASAL BID 12/27/18 12/27/18 History spray aerosol carvedilol 3.125 mg tablet 3.125 mg PO BID 12/27/18 12/27/18 History cetirizine 10 mg capsule 10 mg PO DAILY 12/27/18 12/27/18 History citalopram 20 mg tablet 20 mg PO DAILY 12/27/18 12/27/18 History docusate sodium 250 mg capsule 250 mg PO DAILY PRN cap 12/27/18 12/27/18 History ezetimibe 10 mg tablet 10 mg PO DAILY 12/27/18 12/27/18 History ferrous sulfate 325 mg (65 mg 325 mg PO BID tab 12/27/18 12/28/18 History iron) tablet furosemide 20 mg tablet 20 mg PO DAILY 12/27/18 12/27/18 History gabapentin 100 mg capsule 100 mg PO BID 12/27/18 12/28/18 History insulin glargine (U-100) 100 22 unit SQ HS ml 12/27/18 12/28/18 History unit/mL (3 mL) subcutaneous pen lisinopril 10 mg tablet 10 mg PO DAILY 12/27/18 12/27/18 History montelukast 10 mg tablet 10 mg PO HS 12/27/18 12/28/18 History multivitamin,hy-nqut-qdwuhbcf 1 tab PO DAILY 12/27/18 12/27/18 History tablet omeprazole 20 mg capsule,delayed 20 mg PO DAILY 12/27/18 12/27/18 History release simvastatin 40 mg tablet 40 mg PO HS 12/27/18 12/28/18 History sulfamethoxazole 800 1 tab PO BID tab 12/27/18 12/28/18 History mg-trimethoprim 160 mg tablet Fluticasone Propionate [Flonase 2 spr NS HS 12/28/18 12/28/18 History 50mcg nasal spray 16gm] Fluticasone Propionate [Flovent 2 puffs IH BID 12/28/18 12/28/18 History Hfa 110mcg Inhaler] Height: 1.5 m Weight: 87.26 kg Laboratory Results:: Laboratory Results - last 24 hr 01/01/19 10:58: POC Glucose 133 H 01/01/19 15:30: Vancomycin Trough 17.7 01/01/19 16:40: POC Glucose 127 H 01/01/19 22:00: POC Glucose 204 H 01/02/19 06:13: POC Glucose 101 01/02/19 06:32: Sodium 140, Potassium 4.9, Chloride 109 H, Carbon Dioxide 24, Anion Gap 11.9, BUN 16, Creatinine 1.02, Estimated Creat Clear 78, Estimated GFR 55 L, Est GFR ( Amer) 66, Glucose 105, Calcium 8.4 L Medical History: Reports:: Asthma, Atherosclerotic Heart Disease, Congestive Heart Failure, Coronary Artery Disease, Depression, Diabetes Mellitus Type 2, Gastroesophageal Reflux Disease(GERD), Gastrointestinal Bleed, Hyperlipidemia, Hypertension, MRSA, Myocardial Infarction, Peripheral Artery Disease, Peripheral Vascular Disease, Urinary Tract Infection Assessment and Plan (1) Osteomyelitis of foot, right, acute Current visit: Yes Status: Acute Category: Medical Code(s): M86.171 - Other acute osteomyelitis, right ankle and foot (2) Gangrene of right foot Current visit: Yes Status: Acute Category: Medical Code(s): I96 - Gangrene, not elsewhere classified (3) Pneumonia Current visit: Yes Status: Acute Category: Medical Code(s): J18.9 - Pneumonia, unspecified organism (4) Cellulitis of right foot Current visit: Yes Status: Acute Category: Medical Code(s): L03.115 - Cellulitis of right lower limb (5) Diabetic foot infection Current visit: No Status: Acute Category: Medical Code(s): E11.628 - Type 2 diabetes mellitus with other skin complications; L08.9 - Local infection of the skin and subcutaneous tissue, unspecified (6) PAD (peripheral artery disease) Current visit: Yes Status: Acute Category: Medical Code(s): I73.9 - Peripheral vascular disease, unspecified (7) History of left below knee amputation Current visit: Yes Status: Acute Category: Medical Code(s): Z89.512 - Acquired absence of left leg below knee (8) Diabetic nephropathy Current visit: Yes Status: Chronic Category: Medical Code(s): E11.21 - Type 2 diabetes mellitus with diabetic nephropathy (9) GERD (gastroesophageal reflux disease) Current visit: Yes Status: Chronic Category: Medical Code(s): K21.9 - Gastro-esophageal reflux disease without esophagitis (10) Diabetic retinopathy Current visit: Yes Status: Chronic Category: Medical Code(s): E11.319 - Type 2 diabetes mellitus with unspecified diabetic retinopathy without macular edema (11) GAVE (gastric antral vascular ectasia) Current visit: Yes Status: Chronic Category: Medical Code(s): K31.819 - Angiodysplasia of stomach and duodenum without bleeding (12) Cardiovascular disease Current visit: Yes Status: Chronic Category: Medical Code(s): I25.10 - Atherosclerotic heart disease of [place] coronary artery without angina pectoris (13) Hypertension Current visit: Yes Status: Chronic Category: Medical Code(s): I10 - Essential (primary) hypertension (14) Depression Current visit: Yes Status: Chronic Category: Medical Code(s): F32.9 - Major depressive disorder, single episode, unspecified (15) Environmental allergies Current visit: Yes Status: Chronic Category: Medical Code(s): Z91.09 - Other allergy status, other than to drugs and biological substances (16) Diastolic heart failure Current visit: Yes Status: Chronic Category: Medical Code(s): I50.30 - Unspecified diastolic (congestive) heart failure (17) Chronic anemia Current visit: Yes Status: Acute Category: Medical Code(s): D64.9 - Anemia, unspecified (18) Aortic stenosis Current visit: Yes Status: Acute Category: Medical Code(s): I35.0 - Nonrhe umatic aortic (valve) stenosis - Assessment and plan all Dx Assessment and Plan for all problems:: BASED ON PATIENT FACTORS AND TROUGH LEVEL OF 17.7, RECOMMEND CONTINUING CURRENT DOSE OF VANCOMYCIN IV AT 1,250MG DAILY. PHARMACY WILL CONTINUE TO MONITOR AND WILL ADJUST DOSE APPROPRIATE. -BLAINE OSHEA PHARMD
--- NOTE | 2019-01-03 07:51 | Progress Note ---
Subjective Date: 01/03/19 Time: 07:48 Principal diagnosis: R 2nd toe gangrene, PAD, cellulitis, osteomyelitis Interval history: 63 yo WF in bed in NAD. Relates cough but no chest pain. Discussed history with Kiera Spencer APRN. Pt has had previous extensive AR with prior cardiac cath at within the last couple of years. She is known to have LVEF of about 40% by echo in the last year. 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 Exam Vital signs and Labs for Last 24 Hours: Temp Pulse Resp BP Pulse Ox 97.6 F 78 18 152/84 H 88 L 01/03/19 04:00 01/03/19 06:14 01/03/19 04:00 01/03/19 04:00 01/03/19 06:14 Laboratory Results - last 24 hr 01/01/19 16:40: POC Glucose 127 H 01/01/19 22:00: POC Glucose 204 H 01/02/19 10:57: POC Glucose 116 H 01/02/19 16:03: POC Glucose 93 01/02/19 20:11: POC Glucose 122 H I & O for Last 24 hours: Intake & Output 12/31/18 01/01/19 01/02/19 01/03/19 11:59 11:59 11:59 11:59 Intake Total 953 / 953 3633 / 3633 2435 / 2435 1775 / 1775 Output Total 100 / 100 Balance 953 / 953 3633 / 3633 2435 / 2435 1675 / 1675 Weight 187 lb 2 oz 190 lb 3 oz 192 lb 6 oz 193 lb Microbiology Reports for the Last 24 Hours: Microbiology 12/28/18 15:03 Foot,Right - Right Gram Stain - Final 12/28/18 15:03 Foot,Right - Right Surgical Biopsy Culture - Final Klebsiella pneumoniae Enterococcus faecalis Staphylococcus aureus - *Routine Respiratory Exam Present: rales, wheezes. Absent: accessory muscle use, rhonchi - *Routine Cardiovascular Exam Present: RRR, murmur. Absent: gallop, rubs - *Routine Extremities Exam Present: edema. Absent: calf tenderness Progress Note: A&P (1) Osteomyelitis of foot, right, acute Status: Acute Current Visit: Yes (2) Gangrene of right foot Status: Acute Current Visit: Yes (3) Pneumonia Status: Acute Current Visit: Yes (4) Cellulitis of right foot Status: Acute Current Visit: Yes (5) Diabetic foot infection Status: Acute Current Visit: No (6) PAD (peripheral artery disease) Status: Acute Current Visit: Yes (7) History of left below knee amputation Status: Acute Current Visit: Yes (8) Diabetic nephropathy Status: Chronic Current Visit: Yes (9) GERD (gastroesophageal reflux disease) Status: Chronic Current Visit: Yes (10) Diabetic retinopathy Status: Chronic Current Visit: Yes (11) GAVE (gastric antral vascular ectasia) Status: Chronic Current Visit: Yes (12) Cardiovascular disease Status: Chronic Current Visit: Yes (13) Hypertension Status: Chronic Current Visit: Yes (14) Depression Status: Chronic Current Visit: Yes (15) Environmental allergies Status: Chronic Current Visit: Yes (16) Diastolic heart failure Status: Chronic Current Visit: Yes (17) Chronic anemia Status: Acute Current Visit: Yes (18) Aortic stenosis Status: Acute Current Visit: Yes Assessment and Plan for All Diagnoses:: Potassium has improved to <5 over the weekend. Will proceed with angiogram of RLE today. Renal functions normal. I>>O during her stay (net positive of 13 liters). Not on maintenance lasix at this time. Some edema noted. With Cardiomyopathy, would recommend discontinuing norvasc and increase coreg.
--- NOTE | 2019-01-03 08:52 | Progress Note ---
Subjective Date: 01/03/19 Time: 08:05 Principal diagnosis: R 2nd toe gangrene, PAD, cellulitis, osteomyelitis Interval history: Resting comfortably in bed. Denies pain to foot. PN: Obj Ex Vital signs: Temp Pulse Resp BP Pulse Ox 98.6 F 79 18 191/88 H 92 L 01/03/19 08:00 01/03/19 08:00 01/03/19 08:00 01/03/19 08:00 01/03/19 08:00 - Constitutional no acute distress - Detailed Lower Extremity Exam Comments: Right foot amp site has sutures and norah clean dry and intact. Dusky skin noted to dorsal central amp site, worsening to dry eschar. Looks like central area has dry gangrene and skin is dying. No POP. Decreased edema and erythema noted to the amputation site. Decreased edema noted to the RLE. The right heel has no pressure ulcer but there is some pinkness to the skin. Skin temp wnl. No calf or thigh pain noted. Progress Note: A&P (1) Osteomyelitis of foot, right, acute Status: Acute Current Visit: Yes (2) Gangrene of right foot Status: Acute Current Visit: Yes (3) Pneumonia Status: Acute Current Visit: Yes (4) Cellulitis of right foot Status: Acute Current Visit: Yes (5) Diabetic foot infection Status: Acute Current Visit: No (6) PAD (peripheral artery disease) Status: Acute Current Visit: Yes (7) History of left below knee amputation Status: Acute Current Visit: Yes (8) Diabetic nephropathy Status: Chronic Current Visit: Yes (9) GERD (gastroesophageal reflux disease) Status: Chronic Current Visit: Yes (10) Diabetic retinopathy Status: Chronic Current Visit: Yes (11) GAVE (gastric antral vascular ectasia) Status: Chronic Current Visit: Yes (12) Cardiovascular disease Status: Chronic Current Visit: Yes (13) Hypertension Status: Chronic Current Visit: Yes (14) Depression Status: Chronic Current Visit: Yes (15) Environmental allergies Status: Chronic Current Visit: Yes (16) Diastolic heart failure Status: Chronic Current Visit: Yes (17) Chronic anemia Status: Acute Current Visit: Yes (18) Aortic stenosis Status: Acute Current Visit: Yes Assessment and Plan for All Diagnoses:: 12/28/18, s/p right foot I&D, foreign body excision, transmetatarsal amputation POD #6 Intra-op cultures 3/12/19: Klebsiella pneumoniae, Proteus MRSA mirabilis, Staph warneri, and Enterococcus faecalis. 1. Rounded and discussed plan of care with Dr. Griffith at bedside 2. Dressing changed at bedside: skin dry eschar at central incision, cleaned with betadine. No new SOI. Concerned over healing potential 3. Suspend right heel off pillow (avoid pressure heel ulcer) 4. NWB in wheelchair 5. Continue IV Abx: Ertapenem, Levaquin and Vancomycin 6. Discussed case with Harry Akins regarding abnormal ABIs and L BKA history. High risk for R proximal amp/BKA. Defer to cardio 7. Cardio to do RLE revasc, angiogram today 8. Plan for dsg change tomorrow
--- NOTE | 2019-01-03 09:05 | Progress Note ---
<Kiera Spencer - Last Filed: 01/03/19 09:02> Internal Medicine - PN: Subj *Date: 01/03/19 *Time: 09:02 Interval history: Patient states she is doing well today. She actually feels better. She denies chest pain and is slightly short of breath. She denies abdominal pain and nausea. She requests to get out of bed. She informs me that she was up yesterday and she enjoyed it. She also said she slept all day and was awake all night and laughs. She states she does not hurt any place else. She ate very little for breakfast although she states she never eats breakfast. Exam Vital signs and Labs for Last 24 Hours: Temp Pulse Resp BP Pulse Ox 98.6 F 79 18 191/88 H 92 L 01/03/19 08:00 01/03/19 08:00 01/03/19 08:00 01/03/19 08:00 01/03/19 08:00 Laboratory Results - last 24 hr 01/02/19 10:57: POC Glucose 116 H 01/02/19 16:03: POC Glucose 93 01/02/19 20:11: POC Glucose 122 H I & O for Last 24 hours: Intake & Output 12/31/18 01/01/19 01/02/19 01/03/19 11:59 11:59 11:59 11:59 Intake Total 953 / 953 3633 / 3633 2435 / 2435 2135 / 2135 Output Total 100 / 100 Balance 953 / 953 3633 / 3633 2435 / 2435 2034 / 203 Weight 187 lb 2 oz 190 lb 3 oz 192 lb 6 oz 193 lb Microbiology Reports for the Last 24 Hours: Microbiology 12/28/18 15:03 Foot,Right - Right Gram Stain - Final 12/28/18 15:03 Foot,Right - Right Surgical Biopsy Culture - Final Klebsiella pneumoniae Enterococcus faecalis Staphylococcus aureus - Constitutional no acute distress Comments: Conversant. Chewing gum. - *Routine Respiratory Exam Comments: Bilateral wheezing. Bilateral basilar crackles. Diminished breath sounds posteriorly - *Routine Cardiovascular Exam Present: RRR, murmur - *Routine Abdominal Exam Present: soft, normoactive bowel sounds, distended. Absent: tenderness - *Routine Extremities Exam Comments: Right leg is cool. Dressing on foot is clean and dry. - *Routine Neurological Exam Present: alert, oriented X3 Assessment and Plan (1) Osteomyelitis of foot, right, acute Current visit: Yes Status: Acute Category: Medical Code(s): M86.171 - Other acute osteomyelitis, right ankle and foot (2) Gangrene of right foot Current visit: Yes Status: Acute Category: Medical Code(s): I96 - Gangrene, not elsewhere classified (3) Pneumonia Current visit: Yes Status: Acute Category: Medical Code(s): J18.9 - Pneumonia, unspecified organism (4) Cellulitis of right foot Current visit: Yes Status: Acute Category: Medical Code(s): L03.115 - Cellulitis of right lower limb (5) Diabetic foot infection Current visit: No Status: Acute Category: Medical Code(s): E11.628 - Type 2 diabetes mellitus with other skin complications; L08.9 - Local infection of the skin and subcutaneous tissue, unspecified (6) PAD (peripheral artery disease) Current visit: Yes Status: Acute Category: Medical Code(s): I73.9 - Peripheral vascular disease, unspecified (7) History of left below knee amputation Current visit: Yes Status: Acute Category: Medical Code(s): Z89.512 - Acquired absence of left leg below knee (8) Diabetic nephropathy Current visit: Yes Status: Chronic Category: Medical Code(s): E11.21 - Type 2 diabetes mellitus with diabetic nephropathy (9) GERD (gastroesophageal reflux disease) Current visit: Yes Status: Chronic Category: Medical Code(s): K21.9 - Gastro-esophageal reflux disease without esophagitis (10) Diabetic retinopathy Current visit: Yes Status: Chronic Category: Medical Code(s): E11.319 - Type 2 diabetes mellitus with unspecified diabetic retinopathy without macular edema (11) GAVE (gastric antral vascular ectasia) Current visit: Yes Status: Chronic Category: Medical Code(s): K31.819 - Angiodysplasia of stomach and duodenum without bleeding (12) Cardiovascular disease Current visit: Yes Status: Chronic Category: Medical Code(s): I25.10 - Atherosclerotic heart disease of [place] coronary artery without angina pectoris (13) Hypertension Current visit: Yes Status: Chronic Category: Medical Code(s): I10 - Essential (primary) hypertension (14) Depression Current visit: Yes Status: Chronic Category: Medical Code(s): F32.9 - Major depressive disorder, single episode, unspecified (15) Environmental allergies Current visit: Yes Status: Chronic Category: Medical Code(s): Z91.09 - Other allergy status, other than to drugs and biological substances (16) Diastolic heart failure Current visit: Yes Status: Chronic Category: Medical Code(s): I50.30 - Unspecified diastolic (congestive) heart failure (17) Chronic anemia Current visit: Yes Status: Acute Category: Medical Code(s): D64.9 - Anemia, unspecified (18) Aortic stenosis Current visit: Yes Status: Acute Category: Medical Code(s): I35.0 - Nonrheumatic aortic (valve) stenosis (19) Cardiomyopathy Current visit: Yes Status: Acute Category: Medical Code(s): I42.9 - Cardiomyopathy, unspecified - Assessment and plan all Dx Assessment and Plan for all problems:: Has been seen by cardiology this morning. Will have angiogram of the right lower extremity. Will increase Coreg and discontinue amlodipine and start low- dose lisinopril while monitoring renal function. Will also give 40 of Lasix IV and discontinue maintenance fluids at [address] Garsia catheter for strict intake and output and urine control during procedure. Cultures foot/wound reveal Klebsiella pneumoniae, Proteus MRSA mirabilis, staph warneri, and Enterococcus faecalis. Patient on IV antibiotics of ertapenem and Levaquin and vancomycin <Abhijit Griffith - Last Filed: 01/03/19 13:45> Exam Vital signs and Labs for Last 24 Hours: Temp Pulse Resp BP Pulse Ox 98.0 F 77 20 180/76 H 91 L 01/03/19 11:39 01/03/19 11:39 01/03/19 11:39 01/03/19 11:39 01/03/19 11:39 Laboratory Results - last 24 hr 01/02/19 16:03: POC Glucose 93 01/02/19 20:11: POC Glucose 122 H 01/03/19 09:10: WBC 7.3, RBC 3.01 L, Hgb 8.8 L, Hct 28.3 L, MCV 93.9, MCH 29.2, MCHC 31.1 L, RDW 13.8, Plt Count 247, MPV 7.7, Neut % (Auto) 77.2, Lymph % (Auto) 10.6, [place] % (Auto) 8.0, Eos % (Auto) 3.8, Baso % (Auto) 0.4, Neut # (Auto) 5.6, Lymph # (Auto) 0.8, [place] # (Auto) 0.6, Eos # (Auto) 0.3, Baso # (Auto) 0.0 I & O for Last 24 hours: Intake & Output 01/01/19 01/02/19 01/03/19 01/04/19 11:59 11:59 11:59 11:59 Intake Total 3632 / 3632 2435 / 2435 2134 Output Total 100 / 100 Balance 3632 / 3632 2434 / 2434 Weight 190 lb 3 oz 192 lb 6 oz 193 lb Assessment and Plan (1) Osteomyelitis of foot, right, acute Current visit: Yes Status: Acute Category: Medical Code(s): M86.171 - Other acute osteomyelitis, right ankle and foot (2) Gangrene of right foot Current visit: Yes Status: Acute Category: Medical Code(s): I96 - Gangrene, not elsewhere classified (3) Pneumonia Current visit: Yes Status: Acute Category: Medical Code(s): J18.9 - Pneumonia, unspecified organism (4) Cellulitis of right foot Current visit: Yes Status: Acute Category: Medical Code(s): L03.115 - Cellulitis of right lower limb (5) Diabetic foot infection Current visit: No Status: Acute Category: Medical Code(s): E11.628 - Type 2 diabetes mellitus with other skin complications; L08.9 - Local infection of the skin and subcutaneous tissue, unspecified (6) PAD (peripheral artery disease) Current visit: Yes Status: Acute Category: Medical Code(s): I73.9 - Peripheral vascular disease, unspecified (7) History of left below knee amputation Current visit: Yes Status: Acute Category: Medical Code(s): Z89.512 - Acquired absence of left leg below knee (8) Diabetic nephropathy Current visit: Yes Status: Chronic Category: Medical Code(s): E11.21 - Type 2 diabetes mellitus with diabetic nephropathy (9) GERD (gastroesophageal reflux disease) Current visit: Yes Status: Chronic Category: Medical Code(s): K21.9 - Gastro-esophageal reflux disease without esophagitis (10) Diabetic retinopathy Current visit: Yes Status: Chronic Category: Medical Code(s): E11.319 - Type 2 diabetes mellitus with unspecified diabetic retinopathy without macular edema (11) GAVE (gastric antral vascular ectasia) Current visit: Yes Status: Chronic Category: Medical Code(s): K31.819 - Angiodysplasia of stomach and duodenum without bleeding (12) Cardiovascular disease Current visit: Yes Status: Chronic Category: Medical Code(s): I25.10 - Atherosclerotic heart disease of [place] coronary artery without angina pectoris (13) Hypertension Current visit: Yes Status: Chronic Category: Medical Code(s): I10 - Essential (primary) hypertension (14) Depression Current visit: Yes Status: Chronic Category: Medical Code(s): F32.9 - Major depressive disorder, single episode, unspecified (15) Environmental allergies Current visit: Yes Status: Chronic Category: Medical Code(s): Z91.09 - Other allergy status, other than to drugs and biological substances (16) Diastolic heart failure Current visit: Yes Status: Chronic Category: Medical Code(s): I50.30 - Unspecified diastolic (congestive) heart failure (17) Chronic anemia Current visit: Yes Status: Acute Category: Medical Code(s): D64.9 - Anemia, unspecified (18) Aortic stenosis Current visit: Yes Status: Acute Category: Medical Code(s): I35.0 - Nonrheumatic aortic (valve) stenosis - Assessment and plan all Dx Assessment and Plan for all problems:: Patient seen and examined. She, subjectively, is feeling better today. She is starting to eat better. Denies cough. Will repeat CXR today. LE angio is pending. Cultures reviewed and Ertapenem added to cover Klebsiella a nd proteus.
[2019-01-03 09:20] LABS: Basophils % 0.4 % (0.1-2.0); Eosinophils # 0.3 K/mm3 (0.0-0.4); Eosinophils % 3.8 % (0.1-12.0); Hematocrit 28.3 % (37.0-47.0); Hemoglobin 8.8 g/dL (12.2-16.2); Lymphocytes # 0.8 K/mm3 (0.7-4.5); Lymphocytes % 10.6 % (10-50); Mean Corpuscular HGB Conc 31.1 g/dL (31.8-35.4); Mean Corpuscular Hemoglobin 29.2 pg (27.0-31.2); Mean Corpuscular Volume 93.9 fl (81-99); Mean Platelet Volume 7.7 fl (7.4-10.4); Monocytes # 0.6 K/mm3 (0.1-1.0); Neutrophils # 5.6 K/mm3 (1.8-7.8); Neutrophils % 77.2 % (37.0-80.0); Platelet Count 247 K/mm3 (142-424); Red Blood Count 3.01 M/mm3 (4.20-5.40); Red Cell Distribution Width 13.8 % (11.5-17.5); White Blood Count 7.3 K/mm3 (4.8-10.8)
[2019-01-04 05:53] LABS: Basophils % 0.6 % (0.1-2.0); Eosinophils # 0.2 K/mm3 (0.0-0.4); Eosinophils % 2.9 % (0.1-12.0); Hematocrit 26.7 % (37.0-47.0); Hemoglobin 8.5 g/dL (12.2-16.2); Lymphocytes # 0.6 K/mm3 (0.7-4.5); Lymphocytes % 10.4 % (10-50); Mean Corpuscular HGB Conc 31.8 g/dL (31.8-35.4); Mean Corpuscular Hemoglobin 29.7 pg (27.0-31.2); Mean Corpuscular Volume 93.4 fl (81-99); Mean Platelet Volume 7.7 fl (7.4-10.4); Monocytes # 0.3 K/mm3 (0.1-1.0); Monocytes % 5.9 % (1.7-9.3); Neutrophils # 4.6 K/mm3 (1.8-7.8); Neutrophils % 80.2 % (37.0-80.0); Platelet Count 211 K/mm3 (142-424); Red Blood Count 2.86 M/mm3 (4.20-5.40); White Blood Count 5.7 K/mm3 (4.8-10.8)
[2019-01-04 06:03] LABS: Anion Gap 12.3 mEq/L (5-15); Calcium 8.4 mg/dL (8.5-10.1); Potassium 4.3 mmoL/L (3.5-5.1)
--- NOTE | 2019-01-04 08:06 | Progress Note ---
Subjective Date: 01/04/19 Time: 07:50 Principal diagnosis: R 2nd toe gangrene, PAD, cellulitis, osteomyelitis Interval history: Patient lying comfortably in bed. She denies pain to the foot. She complains of some pain to the stomach. PN: Obj Ex Vital signs: Temp Pulse Resp BP Pulse Ox 97.4 F L 65 18 143/71 H 91 L 01/04/19 04:00 01/04/19 05:45 01/04/19 04:00 01/04/19 04:00 01/04/19 05:45 - Constitutional no acute distress - Routine HEENT Exam Head: Present: normocephalic - Routine Neck Exam Present: supple - Routine Respiratory Exam Absent: respiratory distress - Routine Abdominal Exam Absent: guarding - Routine Extremities Exam Present: edema, amputation. Absent: normal capillary refill - Detailed Lower Extremity Exam Comments: Right foot amp site has sutures and norah clean dry and intact. Dry eschar noted to central incision. No POP. No new or worsening erythema noted to the amputation site. The right heel pinkness has improved. Skin temp warmer. No calf or thigh pain noted. - Urinary Catheter Management Garsia Cath placed during this visit: yes Urethral indwelling: Yes Reason for continuing: Other continuation reason Insertion date: 01/03/19 Insertion time: 10:22 Progress Note: A&P (1) Osteomyelitis of foot, right, acute Status: Acute Current Visit: Yes (2) Gangrene of right foot Status: Acute Current Visit: Yes (3) Pneumonia Status: Acute Current Visit: Yes (4) Cellulitis of right foot Status: Acute Current Visit: Yes (5) Diabetic foot infection Status: Acute Current Visit: No (6) PAD (peripheral artery disease) Status: Acute Current Visit: Yes (7) History of left below knee amputation Status: Acute Current Visit: Yes (8) Diabetic nephropathy Status: Chronic Current Visit: Yes (9) GERD (gastroesophageal reflux disease) Status: Chronic Current Visit: Yes (10) Diabetic retinopathy Status: Chronic Current Visit: Yes (11) GAVE (gastric antral vascular ectasia) Status: Chronic Current Visit: Yes (12) Cardiovascular disease Status: Chronic Current Visit: Yes (13) Hypertension Status: Chronic Current Visit: Yes (14) Depression Status: Chronic Current Visit: Yes (15) Environmental allergies Status: Chronic Current Visit: Yes (16) Diastolic heart failure Status: Chronic Current Visit: Yes (17) Chronic anemia Status: Acute Current Visit: Yes (18) Aortic stenosis Status: Acute Current Visit: Yes Assessment and Plan for All Diagnoses:: 12/28/18, s/p right foot I&D, foreign body excision, transmetatarsal amputation POD #7 Intra-op cultures 12/28/18: Klebsiella pneumoniae, Proteus MRSA mirabilis, Staph warneri, and Enterococcus faecalis. 1. Discussed POC yesterday with Dr. Martell 2. Dressing changed at bedside: skin dry eschar at central incision, cleaned with betadine. No new SOI. Concerned over healing potential, monitor 3. Suspend right heel off pillow (avoid pressure heel ulcer) 4. NWB in wheelchair 5. Continue IV Abx: Ertapenem, Levaquin and Vancomycin 6. Monitor amp site for healing, no new surgical intervention or amp planned 7. Follow up outpatient upon discharge (call office for appt)
--- NOTE | 2019-01-04 08:21 | Progress Note ---
<Kiera Spencer - Last Filed: 01/04/19 08:17> Internal Medicine - PN: Subj *Date: 01/04/19 *Time: 08:17 Interval history: She states she does not feel well today. She has abdominal cramping. She is passing flatus. Bowels have been moving. She denies any nausea. She continues with a Garsia catheter. She denies chest pain and shortness of breath. She is not sure if she wants to get out of bed today. Exam Vital signs and Labs for Last 24 Hours: Temp Pulse Resp BP Pulse Ox 98.1 F 71 17 153/67 H 94 L 01/04/19 08:00 01/04/19 08:00 01/04/19 08:00 01/04/19 08:00 01/04/19 08:00 Laboratory Results - last 24 hr 01/03/19 06:33: POC Glucose 154 H 01/03/19 09:10: WBC 7.3, RBC 3.01 L, Hgb 8.8 L, Hct 28.3 L, MCV 93.9, MCH 29.2, MCHC 31.1 L, RDW 13.8, Plt Count 247, MPV 7.7, Neut % (Auto) 77.2, Lymph % (Auto) 10.6, [place] % (Auto) 8.0, Eos % (Auto) 3.8, Baso % (Auto) 0.4, Neut # (Auto) 5.6, Lymph # (Auto) 0.8, [place] # (Auto) 0.6, Eos # (Auto) 0.3, Baso # (Auto) 0.0 01/03/19 11:08: POC Glucose 154 H 01/03/19 13:18: Activated Clotting Time 305 H* 01/03/19 14:23: Activated Clotting Time 208 H* D 01/03/19 14:52: Activated Clotting Time 267 H* D 01/03/19 15:24: Activated Clotting Time 151 H* D 01/03/19 16:43: POC Glucose 70 01/03/19 20:59: POC Glucose 120 H 01/04/19 05:39: POC Glucose 82 01/04/19 05:40: WBC 5.7, RBC 2.86 L, Hgb 8.5 L, Hct 26.7 L, MCV 93.4, MCH 29.7, MCHC 31.8, RDW 14.0, Plt Count 211, MPV 7.7, Neut % (Auto) 80.2 H, Lymph % (Auto) 10.4, [place] % (Auto) 5.9, Eos % (Auto) 2.9, Baso % (Auto) 0.6, Neut # (Auto) 4.6, Lymph # (Auto) 0.6 L, [place] # (Auto) 0.3, Eos # (Auto) 0.2, Baso # (Auto) 0.0 01/04/19 05:40: Sodium 142, Potassium 4.3, Chloride 111 H, Carbon Dioxide 23, Anion Gap 12.3, BUN 10 D, Creatinine 0.99, Estimated Creat Clear 80, Estimated GFR 57 L, Est GFR ( Amer) 69, Glucose 82, Calcium 8.4 L I & O for Last 24 hours: Intake & Output 01/01/19 01/02/19 01/03/19 01/04/19 11:59 11:59 11:59 11:59 Intake Total 3633 / 3633 2435 / 2435 2135 / 2135 360 / 360 Output Total 100 / 100 1400 / 1400 Balance 3633 / 3633 2435 / 2435 2035 / 2035 -1040 / -1040 Weight 190 lb 3 oz 192 lb 6 oz 193 lb 198 lb 3 oz Radiology Reports for the Last 24 Hours: Chest x-ray 01/03/2019 ------. IMPRESSION-------- bibasilar airspace disease persist a similar to previous study. Findings a most pronounced towards the left lung base The combination of infiltrate, atelectasis & pleural effusions continue to obscure both left & right hemidiaphragm. There is additional linear density at the left midlung seen today,... Reflecting atelectasis or fluid along the major fissure PICC line stable. - Constitutional no acute distress Comments: Appears comfortable - *Routine Respiratory Exam Comments: Decreased breath sounds in left base. Few crackles in the right base. Minimal wheezing. - *Routine Cardiovascular Exam Present: RRR, murmur - *Routine Abdominal Exam Present: soft, normoactive bowel sounds, distended. Absent: tenderness - *Routine Extremities Exam Absent: edema Comments: Right leg is warm today. No erythema. Right foot with dressing is clean and dry - *Routine Neurological Exam Present: alert, oriented X3 Assessment and Plan (1) Osteomyelitis of foot, right, acute Status: Acute Category: Medical Code(s): M86.171 - Other acute osteomyelitis, right ankle and foot (2) Gangrene of right foot Status: Acute Category: Medical Code(s): I96 - Gangrene, not elsewhere classified (3) Pneumonia Status: Acute Category: Medical Code(s): J18.9 - Pneumonia, unspecified organism (4) Cellulitis of right foot Status: Acute Category: Medical Code(s): L03.115 - Cellulitis of right lower limb (5) Diabetic foot infection Status: Acute Category: Medical Code(s): E11.628 - Type 2 diabetes mellitus with other skin complications; L08.9 - Local infection of the skin and subcutaneous tissue, unspecified (6) PAD (peripheral artery disease) Status: Acute Category: Medical Code(s): I73.9 - Peripheral vascular disease, unspecified (7) History of left below knee amputation Status: Acute Category: Medical Code(s): Z89.512 - Acquired absence of left leg below knee (8) Diabetic nephropathy Status: Chronic Category: Medical Code(s): E11.21 - Type 2 diabetes mellitus with diabetic nephropathy (9) GERD (gastroesophageal reflux disease) Status: Chronic Category: Medical Code(s): K21.9 - Gastro-esophageal reflux disease without esophagitis (10) Diabetic retinopathy Status: Chronic Category: Medical Code(s): E11.319 - Type 2 diabetes mellitus with unspecified diabetic retinopathy without macular edema (11) GAVE (gastric antral vascular ectasia) Status: Chronic Category: Medical Code(s): K31.819 - Angiodysplasia of stomach and duodenum without bleeding (12) Cardiovascular disease Status: Chronic Category: Medical Code(s): I25.10 - Atherosclerotic heart disease of [place] coronary artery without angina pectoris (13) Hypertension Status: Chronic Category: Medical Code(s): I10 - Essential (primary) hypertension (14) Depression Status: Chronic Category: Medical Code(s): F32.9 - Major depressive disorder, single episode, unspecified (15) Environmental allergies Status: Chronic Category: Medical Code(s): Z91.09 - Other allergy status, other than to drugs and biological substances (16) Diastolic heart failure Status: Chronic Category: Medical Code(s): I50.30 - Unspecified diastolic (congestive) heart failure (17) Chronic anemia Status: Acute Category: Medical Code(s): D64.9 - Anemia, unspecified (18) Aortic stenosis Status: Acute Category: Medical Code(s): I35.0 - Nonrheumatic aortic (valve) stenosis (19) Popliteal artery stenosis, right Status: Acute Category: Medical Code(s): I70.201 - Unspecified atherosclerosis of [place] arteries of extremities, right leg - Assessment and plan all Dx Assessment and Plan for all problems:: Patient will be discharged back to [facility] with IV antibiotics and wound care as per Dr. Heath. She will need repeat labs in 3 days. She nee ds to be out of bed daily. She will need to continue with duo nebs as well. <Abhijit Griffith - Last Filed: 01/04/19 18:45> Exam Vital signs and Labs for Last 24 Hours: Temp Pulse Resp BP Pulse Ox 98.1 F 75 18 148/70 H 94 L 01/04/19 11:34 01/04/19 13:44 01/04/19 11:34 01/04/19 11:34 01/04/19 11:34 Laboratory Results - last 24 hr 01/03/19 06:33: POC Glucose 154 H 01/03/19 11:08: POC Glucose 154 H 01/03/19 20:59: POC Glucose 120 H 01/04/19 05:39: POC Glucose 82 01/04/19 05:40: WBC 5.7, RBC 2.86 L, Hgb 8.5 L, Hct 26.7 L, MCV 93.4, MCH 29.7, MCHC 31.8, RDW 14.0, Plt Count 211, MPV 7.7, Neut % (Auto) 80.2 H, Lymph % (Auto) 10.4, [place] % (Auto) 5.9, Eos % (Auto) 2.9, Baso % (Auto) 0.6, Neut # (Auto) 4.6, Lymph # (Auto) 0.6 L, [place] # (Auto) 0.3, Eos # (Auto) 0.2, Baso # (Auto) 0.0 01/04/19 05:40: Sodium 142, Potassium 4.3, Chloride 111 H, Carbon Dioxide 23, Anion Gap 12.3, BUN 10 D, Creatinine 0.99, Estimated Creat Clear 80, Estimated GFR 57 L, Est GFR ( Amer) 69, Glucose 82, Calcium 8.4 L 01/04/19 05:40: ESR 29 01/04/19 05:40: C-Reactive Protein 2.6 H 01/04/19 11:11: POC Glucose 70 I & O for Last 24 hours: Intake & Output 01/02/19 01/03/19 01/04/19 01/05/19 11:59 11:59 11:59 11:59 Intake Total 2435 / 2435 2135 / 2135 360 / 360 480 / 480 Output Total 100 / 100 1400 / 1400 Balance 2435 / 2435 2034 / 2034 -1040 / -1040 480 / 480 Weight 192 lb 6 oz 193 lb 198 lb 3 oz Assessment and Plan (1) Osteomyelitis of foot, right, acute Status: Acute Category: Medical Code(s): M86.171 - Other acute osteomyelitis, right ankle and foot (2) Gangrene of right foot Status: Acute Category: Medical Code(s): I96 - Gangrene, not elsewhere classified (3) Pneumonia Status: Acute Category: Medical Code(s): J18.9 - Pneumonia, unspecified organism (4) Cellulitis of right foot Status: Acute Category: Medical Code(s): L03.115 - Cellulitis of right lower limb (5) Diabetic foot infection Status: Acute Category: Medical Code(s): E11.628 - Type 2 diabetes mellitus with other skin complications; L08.9 - Local infection of the skin and subcutaneous tissue, unspecified (6) PAD (peripheral artery disease) Status: Acute Category: Medical Code(s): I73.9 - Peripheral vascular disease, unspecified (7) History of left below knee amputation Status: Acute Category: Medical Code(s): Z89.512 - Acquired absence of left leg below knee (8) Diabetic nephropathy Status: Chronic Category: Medical Code(s): E11.21 - Type 2 diabetes mellitus with diabetic nephropathy (9) GERD (gastroesophageal reflux disease) Status: Chronic Category: Medical Code(s): K21.9 - Gastro-esophageal reflux disease without esophagitis (10) Diabetic retinopathy Status: Chronic Category: Medical Code(s): E11.319 - Type 2 diabetes mellitus with unspecified diabetic retinopathy without macular edema (11) GAVE (gastric antral vascular ectasia) Status: Chronic Category: Medical Code(s): K31.819 - Angiodysplasia of stomach and duodenum without bleeding (12) Cardiovascular disease Status: Chronic Category: Medical Code(s): I25.10 - Atherosclerotic heart disease of [place] coronary artery without angina pectoris (13) Hypertension Status: Chronic Category: Medical Code(s): I10 - Essential (primary) hypertension (14) Depression Status: Chronic Category: Medical Code(s): F32.9 - Major depressive disorder, single episode, unspecified (15) Environmental allergies Status: Chronic Category: Medical Code(s): Z91.09 - Other allergy status, other than to drugs and biological substances (16) Diastolic heart failure Status: Chronic Category: Medical Code(s): I50.30 - Unspecified diastolic (congestive) heart failure (17) Chronic anemia Status: Acute Category: Medical Code(s): D64.9 - Anemia, unspecified (18) Aortic stenosis Status: Acute Category: Medical Code(s): I35.0 - Nonrheumatic aortic (valve) stenosis (19) Popliteal artery stenosis, right Status: Acute Category: Medical Code(s): I70.201 - Unspecified atherosclerosis of [place] arteries of extremities, right leg - Assessment and plan all Dx Assessment and Plan for all problems:: Patient seen and examined this AM. Concur with plan for discharge. She is excited to return to [facility].
--- NOTE | 2019-01-04 08:55 | Progress Note ---
Subjective Date: 01/04/19 Time: 08:50 Principal diagnosis: R 2nd toe gangrene, PAD, cellulitis, osteomyelitis Interval history: 63 yo WF in bed in NAD. Denies any chest pain. States she is going home today. Exam Vital signs and Labs for Last 24 Hours: Temp Pulse Resp BP Pulse Ox 98.1 F 71 17 153/67 H 94 L 01/04/19 08:00 01/04/19 08:00 01/04/19 08:00 01/04/19 08:00 01/04/19 08:00 Laboratory Results - last 24 hr 01/03/19 06:33: POC Glucose 154 H 01/03/19 09:10: WBC 7.3, RBC 3.01 L, Hgb 8.8 L, Hct 28.3 L, MCV 93.9, MCH 29.2, MCHC 31.1 L, RDW 13.8, Plt Count 247, MPV 7.7, Neut % (Auto) 77.2, Lymph % (Auto) 10.6, [place] % (Auto) 8.0, Eos % (Auto) 3.8, Baso % (Auto) 0.4, Neut # (Auto) 5.6, Lymph # (Auto) 0.8, [place] # (Auto) 0.6, Eos # (Auto) 0.3, Baso # (Auto) 0.0 01/03/19 11:08: POC Glucose 154 H 01/03/19 13:18: Activated Clotting Time 305 H* 01/03/19 14:23: Activated Clotting Time 208 H* D 01/03/19 14:52: Activated Clotting Time 267 H* D 01/03/19 15:24: Activated Clotting Time 151 H* D 01/03/19 16:43: POC Glucose 70 01/03/19 20:59: POC Glucose 120 H 01/04/19 05:39: POC Glucose 82 01/04/19 05:40: WBC 5.7, RBC 2.86 L, Hgb 8.5 L, Hct 26.7 L, MCV 93.4, MCH 29.7, MCHC 31.8, RDW 14.0, Plt Count 211, MPV 7.7, Neut % (Auto) 80.2 H, Lymph % (Auto) 10.4, [place] % (Auto) 5.9, Eos % (Auto) 2.9, Baso % (Auto) 0.6, Neut # (Auto) 4.6, Lymph # (Auto) 0.6 L, [place] # (Auto) 0.3, Eos # (Auto) 0.2, Baso # (Auto) 0.0 01/04/19 05:40: Sodium 142, Potassium 4.3, Chloride 111 H, Carbon Dioxide 23, Anion Gap 12.3, BUN 10 D, Creatinine 0.99, Estimated Creat Clear 80, Estimated GFR 57 L, Est GFR ( Amer) 69, Glucose 82, Calcium 8.4 L I & O for Last 24 hours: Intake & Output 01/01/19 01/02/19 01/03/19 01/04/19 11:59 11:59 11:59 11:59 Intake Total 3633 / 3633 2435 / 2435 2135 / 2135 360 / 360 Output Total 100 / 100 1400 / 1400 Balance 3633 / 3633 2435 / 2435 2035 / 2034 -1040 / -1040 Weight 190 lb 3 oz 192 lb 6 oz 193 lb 198 lb 3 oz - *Routine Respiratory Exam Present: CTA bilaterally. Absent: accessory muscle use, rales, rhonchi, wheezes - *Routine Cardiovascular Exam Present: RRR. Absent: murmur, gallop, rubs - *Routine Extremities Exam Absent: edema, calf tenderness Comments: RLE much warmer since PAD intervention Progress Note: A&P (1) Osteomyelitis of foot, right, acute Status: Acute Current Visit: Yes (2) Gangrene of right foot Status: Acute Current Visit: Yes (3) Pneumonia Status: Acute Current Visit: Yes (4) Cellulitis of right foot Status: Acute Current Visit: Yes (5) Diabetic foot infection Status: Acute Current Visit: No (6) PAD (peripheral artery disease) Status: Acute Current Visit: Yes (7) History of left below knee amputation Status: Acute Current Visit: Yes (8) Diabetic nephropathy Status: Chronic Current Visit: Yes (9) GERD (gastroesophageal reflux disease) Status: Chronic Current Visit: Yes (10) Diabetic retinopathy Status: Chronic Current Visit: Yes (11) GAVE (gastric antral vascular ectasia) Status: Chronic Current Visit: Yes (12) Cardiovascular disease Status: Chronic Current Visit: Yes (13) Hypertension Status: Chronic Current Visit: Yes (14) Depression Status: Chronic Current Visit: Yes (15) Environmental allergies Status: Chronic Current Visit: Yes (16) Diastolic heart failure Status: Chronic Current Visit: Yes (17) Chronic anemia Status: Acute Current Visit: Yes (18) Aortic stenosis Status: Acute Current Visit: Yes (19) Popliteal artery stenosis, right Status: Acute Current Visit: Yes Assessment and Plan for All Diagnoses:: 1. S/p drug eluting balloon angioplasty of SFA and popliteal arteries of RLE. Recommend ASA 81 mg daily and plavix 75 mg daily for 30 days then continue ASA only thereafter. 2. Follow up in office in 1-2 wks
--- NOTE | 2019-01-04 09:25 | Discharge Summary ---
General - General Admission date:: 12/27/18 <Abhijit Griffith - 01/04/19 18:50> 12/27/18 <Kiera Spencer - 01/04/19 09:26> Discharge date: 01/04/19 <TjKiera - 01/04/19 09:26> HPI HPI: Mrs. Rodriguez is a 63 female with a complex history to include type 2 diabetes mellitus hyperlipidemia, diabetic retinopathy, diabetic nephropathy, peripheral vascular disease diastolic heart failure, left central retinal artery occlusion, anemia, hypertension, GERD, multiple allergies, and NSTEMI, GAVE, and environmental allergies who developed a wound on the second toe of her right foot approximately a month ago. She had been followed by the wound care nurse practitioner in the [facility] where she resides. She was started on Bactrim 12/21/2018 and was sent to the emergency room for further evaluation after which the facility continued with wound care and the antibiotic. After being on the antibiotic she developed some nausea, vomiting and constipation. Her bowels last moved the day prior to admission. Appointment had been arranged with Dr. Heath who saw her in her office for evaluation of the toe. Assessment was as follows: Pulses: posterior tibial pulses not present, dorsalis pedis pulses not present. Capillary refill time delayed. Skin temp cool. Right 2nd toe black. Open ulcer noted to dorsal 2nd toe with malodor, purulence, gangrene. Left BKA. Right previous 1, 5th partial ray amputations. Cellulitis noted to 2nd toe and extending proximal to MPJ. Pain to right forefoot. Dr. Griffith was notified and patient was directly admitted to second floor for ongoing care with plans for surgical amputation of the toe and debridement. At the time of initial exam patient was describing some abdominal cramping and cady sea. Cultures completed in the emergency room on 12/21/2018 revealed four organisms: Proteus mirabilis, Klebsiella pneumoniae, enterococcus faecalis and aeroccus viridans for which patient was started on the Bactrim. <Kiera Spencer - 01/04/19 09:26> Hospital Course Hospital Course: Patient was a direct admission from Dr. Heath's office. Antibiotics as per Dr. Heath. Preop chest x-ray showed bilateral pneumonia. Patient was asymptomatic. Patient had surgery, right foot I&D and right transmetatarsal amputation, on 12/28/2018. She tolerated the procedure well. Chest x-ray was persistent for pneumonia. Pulmonary toilet was initiated with incentive spirometer and duo nebs. Cardiology also followed patient while in hospital. Echocardiogram showed moderate aortic stenosis with a 35% ejection fraction. Patient had no chest pain during her hospitalization. She was somewhat hypertensive and her Coreg was increased to 12.5 mg twice daily. She did experience periodic nausea and was started on Zofran as needed as well as Reglan. H&H did drop and was monitored. Potassium elevated up to a high of 6.3. She was given Kayexalate and the REGAN inhibitor was discontinued. Patient was encouraged to be out of bed into the chair. Initially she tolerated this poorly but then was able to sit up for several hours. She did complain of some low back pain at times. On 01/03 she had the following procedure per cardiology: 1. Left femoral arterial access 2. Catheter placement in the abdominal aorta 3. Right sided unilateral runoff to the ankle 4. Drug-eluting angioplasty to the right popliteal artery and right superficial femoral artery With the following assessment: Impression: 1. Critical right SFA right popliteal artery disease 2. Successful drug coated angioplasty of the right SFA and right popliteal artery critical disease reduced to 10% with drug-eluting balloons Plan: 1. Dual antiplatelet therapy 2. LDL less than 55 3. Modification The leg became warmer and the heel had improved circulation after this procedure. Wound cultures showed Proteus mirabilis, staph aureus, enterococcus faecalis, and Klebsiella pneumoniae. Patient was on triple IV antibiotic coverage with Ertapenem, Levaquin and vancomycin. Patient was receiving daily dressing changes with Betadine cleansing and sterile dry dressing. This was to be continued daily at [facility]. Patient also was to be out of bed to a wheelchair with nonweightbearing to the right foot. She was to follow-up with Dr. Heath and probably will be on antibiotics for approximately 6 weeks. Dual antiplatelet therapy as per cardiology will consist of aspirin daily and also to be started on Plavix 75 mg x 30 days. With patient hypertension and cardiomyopathy at cardiology recommendation Coreg was increased to 25 mg twice daily. Amlodipine was discontinued and patient was started on a low-dose of lisinopril 10 mg daily with monitoring of potassium and renal function. Hemoglobin and hematocrit stabilized. She will need to repeat CMP and CBC in 3 days. PICC line was in place and will need daily care. She will need ongoing pulmonary toilet with duo nebs and q. 2-hour incentive spirometer while awake. Follow up with Dr. Heath in her office and will also be followed by Dr. Griffith at [place]. <Kiera Spencer - 01/04/19 10:11> Objective Vital signs: Temp Pulse Resp BP Pulse Ox 98.1 F 75 18 148/70 H 94 L 01/04/19 11:34 01/04/19 13:44 01/04/19 11:34 01/04/19 11:34 01/04/19 11:34 <Abhijit Griffith - 01/04/19 18:50> Temp Pulse Resp BP Pulse Ox 98.1 F 71 17 153/67 H 94 L 01/04/19 08:00 01/04/19 08:00 01/04/19 08:00 01/04/19 08:00 01/04/19 08:00 <Kiera Spencer - 01/04/19 09:26> Narrative: - Constitutional no acute distress Comments: Appears comfortable - *Routine Respiratory Exam Comments: Decreased breath sounds in left base. Few crackles in the right base. Minimal wheezing. - *Routine Cardiovascular Exam Present: RRR, murmur - *Routine Abdominal Exam Present: soft, normoactive bowel sounds, distended. Absent: tenderness - *Routine Extremities Exam Absent: edema Comments: Right leg is warm today. No erythema. Right foot with dressing is clean and dry - *Routine Neurological Exam Present: alert, oriented X3 <Kiera Spencer - 01/04/19 09:32> Results Completed studies during hospitalization [Text1]: 12/27/2018 ultrasound arterial ankle brachial study IMPRESSION: The right PAPA is 1.45 which is elevated consistent with vascular calcification. The vessels in the thigh and the dorsalis pedis are noncompressible. Left PAPA not performed. Prior [id number] amputation on the left. The thigh brachial index is 0.4 consistent with stenosis in either the aorta, left iliac, or left femoral artery. Chest x-ray 12/27/2018 IMPRESSION: Dense consolidation in both lower lobes consistent with pneumonia with possible small effusions 12/29/2018 echocardiogram CONCLUSION: 1. Technically difficult and poor study, short axis view an epicardial 2 chamber views were not obtained. 2. Moderately enlarged left atrium, mildly dilated left ventricle, visually estimated ejection fraction 30-35% in the obtained views with segmental wall motion abnormality described above. 3. Thickened and calcified aortic valve, with restriction the leaflet mobility, mean gradient across valve is 30 mmHg represents moderate aortic stenosis, there is mild aortic insufficiency present. 4. Thickened and calcified mitral valve leaflets. Mitral annular calcification, mean gradient is 5 mmHg represents mild mitral stenosis, there is moderate mitral regurgitation. 5. Mild tricuspid regurgitation, tricuspid regurgitation jet velocity is inadequate for calculation of the right ventricular systolic pressure. 6. Small pericardial effusion noted. 12/29/2018 repeat chest x-ray IMPRESSION: Continued bilateral lower lobe pneumonia with effusions with slight improvement in left lower lobe consolidation and persistent fissural fluid on the right 01/03/2019 repeat chest x-ray ------. IMPRESSION-------- bibasilar airspace disease persist a similar to previous study. Findings a most pronounced towards the left lung base The combination of infiltrate, atelectasis & pleural effusions continue to obscure both left & right hemidiaphragm. There is additional linear density at the left midlung seen today,... Reflecting atelectasis or fluid along the major fissure PICC line stable. <Kiera Spencer - 01/04/19 09:32> Labs on day of discharge: Labs from last 24 hours 01/04/19 01/04/19 01/04/19 11:11 05:40 05:40 WBC RBC Hgb Hct MCV MCH MCHC RDW Plt Count MPV Neut % (Auto) Lymph % (Auto) [place] % (Auto) Eos % (Auto) Baso % (Auto) Neut # (Auto) Lymph # (Auto) [place] # (Auto) Eos # (Auto) Baso # (Auto) ESR 29 Sodium Potassium Chloride Carbon Dioxide Anion Gap BUN Creatinine Estimated Creat Clear Estimated GFR Est GFR ( Amer) Glucose POC Glucose 70 Calcium C-Reactive Protein 2.6 H 01/04/19 01/04/19 01/04/19 05:40 05:40 05:39 WBC 5.7 RBC 2.86 L Hgb 8.5 L Hct 26.7 L MCV 93.4 MCH 29.7 MCHC 31.8 RDW 14.0 Plt Count 211 MPV 7.7 Neut % (Auto) 80.2 H Lymph % (Auto) 10.4 [place] % (Auto) 5.9 Eos % (Auto) 2.9 Baso % (Auto) 0.6 Neut # (Auto) 4.6 Lymph # (Auto) 0.6 L [place] # (Auto) 0.3 Eos # (Auto) 0.2 Baso # (Auto) 0.0 ESR Sodium 142 Potassium 4.3 Chloride 111 H Carbon Dioxide 23 Anion Gap 12.3 BUN 10 D Creatinine 0.99 Estimated Creat Clear 80 Estimated GFR 57 L Est GFR ( Amer) 69 Glucose 82 POC Glucose 82 Calcium 8.4 L C-Reactive Protein 01/03/19 01/03/19 01/03/19 20:59 11:08 06:33 WBC RBC Hgb Hct MCV MCH MCHC RDW Plt Count MPV Neut % (Auto) Lymph % (Auto) [place] % (Auto) Eos % (Auto) Baso % (Auto) Neut # (Auto) Lymph # (Auto) [place] # (Auto) Eos # (Auto) Baso # (Auto) ESR Sodium Potassium Chloride Carbon Dioxide Anion Gap BUN Creatinine Estimated Creat Clear Estimated GFR Est GFR ( Amer) Glucose POC Glucose 120 H 154 H 154 H Calcium C-Reactive Protein <Abhijit Griffith - 01/04/19 18:50> Labs from last 24 hours 01/04/19 01/04/19 01/04/19 05:40 05:40 05:40 WBC 5.7 RBC 2.86 L Hgb 8.5 L Hct 26.7 L MCV 93.4 MCH 29.7 MCHC 31.8 RDW 14.0 Plt Count 211 MPV 7.7 Neut % (Auto) 80.2 H Lymph % (Auto) 10.4 [place] % (Auto) 5.9 Eos % (Auto) 2.9 Baso % (Auto) 0.6 Neut # (Auto) 4.6 Lymph # (Auto) 0.6 L [place] # (Auto) 0.3 Eos # (Auto) 0.2 Baso # (Auto) 0.0 Activated Clotting Time Sodium 142 Potassium 4.3 Chloride 111 H Carbon Dioxide 23 Anion Gap 12.3 BUN 10 D Creatinine 0.99 Estimated Creat Clear 80 Estimated GFR 57 L Est GFR ( Amer) 69 Glucose 82 POC Glucose Calcium 8.4 L C-Reactive Protein 2.6 H 01/04/19 01/03/19 01/03/19 05:39 20:59 16:43 WBC RBC Hgb Hct MCV MCH MCHC RDW Plt Count MPV Neut % (Auto) Lymph % (Auto) [place] % (Auto) Eos % (Auto) Baso % (Auto) Neut # (Auto) Lymph # (Auto) [place] # (Auto) Eos # (Auto) Baso # (Auto) Activated Clotting Time Sodium Potassium Chloride Carbon Dioxide Anion Gap BUN Creatinine Estimated Creat Clear Estimated GFR Est GFR ([facility] Amer) Glucose POC Glucose 82 120 H 70 Calcium C-Reactive Protein 01/03/19 01/03/19 01/03/19 15:24 14:52 14:23 WBC RBC Hgb Hct MCV MCH MCHC RDW Plt Count MPV Neut % (Auto) Lymph % (Auto) [place] % (Auto) Eos % (Auto) Baso % (Auto) Neut # (Auto) Lymph # (Auto) [place] # (Auto) Eos # (Auto) Baso # (Auto) Activated Clotting Time 151 H* D 267 H* D 208 H* D Sodium Potassium Chloride Carbon Dioxide Anion Gap BUN Creatinine Estimated Creat Clear Estimated GFR Est GFR ([facility] Amer) Glucose POC Glucose Calcium C-Reactive Protein 01/03/19 01/03/19 01/03/19 13:18 11:08 09:10 WBC 7.3 RBC 3.01 L Hgb 8.8 L Hct 28.3 L MCV 93.9 MCH 29.2 MCHC 31.1 L RDW 13.8 Plt Count 247 MPV 7.7 Neut % (Auto) 77.2 Lymph % (Auto) 10.6 [place] % (Auto) 8.0 Eos % (Auto) 3.8 Baso % (Auto) 0.4 Neut # (Auto) 5.6 Lymph # (Auto) 0.8 [place] # (Auto) 0.6 Eos # (Auto) 0.3 Baso # (Auto) 0.0 Activated Clotting Time 305 H* Sodium Potassium Chloride Carbon Dioxide Anion Gap BUN Creatinine Estimated Creat Clear Estimated GFR Est GFR ([facility] Amer) Glucose POC Glucose 154 H Calcium C-Reactive Protein 01/03/19 06:33 WBC RBC Hgb Hct MCV MCH MCHC RDW Plt Count MPV Neut % (Auto) Lymph % (Auto) [place] % (Auto) Eos % (Auto) Baso % (Auto) Neut # (Auto) Lymph # (Auto) [place] # (Auto) Eos # (Auto) Baso # (Auto) Activated Clotting Time Sodium Potassium Chloride Carbon Dioxide Anion Gap BUN Creatinine Estimated Creat Clear Estimated GFR Est GFR ( Amer) Glucose POC Glucose 154 H Calcium C-Reactive Protein <SpencerKiera connor - 01/04/19 10:04> DS: Diagnosis - Discharge Diagnosis (1) Osteomyelitis of foot, right, acute Status: Acute (2) Gangrene of right foot Status: Acute (3) Pneumonia Status: Acute (4) Cellulitis of right foot Status: Acute (5) Diabetic foot infection Status: Acute (6) PAD (peripheral artery disease) Status: Acute (7) History of left below knee amputation Status: Acute (8) Diabetic nephropathy Status: Chronic (9) GERD (gastroesophageal reflux disease) Status: Chronic (10) Diabetic retinopathy Status: Chronic (11) GAVE (gastric antral vascular ectasia) Status: Chronic (12) Cardiovascular disease Status: Chronic (13) Hypertension Status: Chronic (14) Depression Status: Chronic (15) Environmental allergies Status: Chronic (16) Diastolic heart failure Status: Chronic (17) Chronic anemia Status: Acute (18) Aortic stenosis Status: Acute (19) Popliteal artery stenosis, right Status: Acute <NachoAbhijit Josue - 01/04/19 18:50> (1) Osteomyelitis of foot, right, acute Status: Acute (2) Gangrene of right foot Status: Acute (3) Pneumonia Status: Acute (4) Cellulitis of right foot Status: Acute (5) Diabetic foot infection Status: Acute (6) PAD (peripheral artery disease) Status: Acute (7) History of left below knee amputation Status: Acute (8) Diabetic nephropathy Status: Chronic (9) GERD (gastroesophageal reflux disease) Status: Chronic (10) Diabetic retinopathy Status: Chronic (11) GAVE (gastric antral vascular ectasia) Status: Chronic (12) Cardiovascular disease Status: Chronic (13) Hypertension Status: Chronic (14) Depression Status: Chronic (15) Environmental allergies Status: Chronic (16) Diastolic heart failure Status: Chronic (17) Chronic anemia Status: Acute (18) Aortic stenosis Status: Acute (19) Popliteal artery stenosis, right Status: Acute <Kiera Spencer - 01/04/19 10:05> Discharge Plan - Patient Discharge Instructions ACTIVITY: Up in chair, Other (NWB right foot) <SpencerKiera - 01/04/19 09:26> DIET: continue same diet <SpencerKiera Geoffrey 01/04/19 09:26> Additional Instructions: WOUND CARE DAILY, OUT OF BED DAILY CONTINUE IV ANTIBIOTICS <Abhijit Griffith 01/04/19 18:50> Patient Instructions: DI for Toe or Foot Amputation, Gastroesophageal Reflux Disease (Alternative Therapy), Gangrene, Amputation of the Foot or Toe, Anemia, DI for Pneumonia -- Adult, Peripherally Inserted Central Catheter, DI for Surgical Site Infection, DI for Multiple Drug-resistant Organism (MDRO) Infection <Abhijit Griffith - 01/04/19 18:50> Forms: <Abhijit Griffith 01/04/19 18:50> - Follow up Plan Follow up with: Akila Heath DPM [Staff Physician] - 1 week <Abhijit Griffith 01/04/19 18:50> Disposition: Xfer [facility] <Abhijit Griffith 01/04/19 18:50> Home Medications: Home Medications Medication Instructions Recorded Confirmed Type Insulin Lispro [HumaLOG 100 0 units SQ ACHS 06/08/18 12/28/18 History units/mL 3mL vial (SSI)] Lactobacillus acidophilus capsule 10 mg PO DAILY 12/27/18 12/27/18 History azelastine 137 mcg (0.1 %) nasal 1 spray INTRANASAL BID 12/27/18 12/27/18 History spray aerosol cetirizine 10 mg capsule 10 mg PO DAILY 12/27/18 12/27/18 History citalopram 20 mg tablet 20 mg PO DAILY 12/27/18 12/27/18 History docusate sodium 250 mg capsule 250 mg PO DAILY PRN cap 12/27/18 12/27/18 History ezetimibe 10 mg tablet 10 mg PO DAILY 12/27/18 12/27/18 History ferrous sulfate 325 mg (65 mg 325 mg PO BID tab 12/27/18 12/28/18 History iron) tablet furosemide 20 mg tablet 20 mg PO DAILY 12/27/18 12/27/18 History insulin glargine (U-100) 100 22 unit SQ HS ml 12/27/18 12/28/18 History unit/mL (3 mL) subcutaneous pen lisinopril 10 mg tablet 10 mg PO DAILY 12/27/18 12/27/18 History montelukast 10 mg tablet 10 mg PO HS 12/27/18 12/28/18 History multivitamin,ge-hnor-zjuoyozy 1 tab PO DAILY 12/27/18 12/27/18 History tablet omeprazole 20 mg capsule,delayed 20 mg PO DAILY 12/27/18 12/27/18 History release simvastatin 40 mg tablet 40 mg PO HS 12/27/18 12/28/18 History Fluticasone Propionate [Flonase 2 spr NS HS 12/28/18 12/28/18 History 50mcg nasal spray 16gm] Fluticasone Propionate [Flovent 2 puffs IH BID 12/28/18 12/28/18 History Hfa 110mcg Inhaler] Carvedilol [Coreg 25mg Tablet] 25 mg PO BID #60 tab 01/04/19 Rx Ertapenem Sodium [Invanz 1gm Vial] 1 gm IV Q24H #7 vial 01/04/19 Rx Hydrocod/Acet 5/325 mg [[place] 1 tab PO Q4HP PRN #60 tab 01/04/19 Rx 5/325mg tablet] Vancomycin HCl [Vancomycin 1000mg 1,250 mg IV Q24H #7 vial 01/04/19 Rx Vial] levoFLOXacin [Levaquin 750mg 750 mg PO 1100 #7 tab 01/04/19 Rx tablet] <Abhijit Griffith - 01/04/19 18:50> Prescriptions/Medication Reconciliation: New Ertapenem Sodium [Invanz 1gm Vial] 1 gm IV Q24H #7 vial Vancomycin HCl [Vancomycin 1000mg Vial] 1,250 mg IV Q24H #7 vial Hydrocod/Acet 5/325 mg [[place] 5/325mg tablet] 1 tab PO Q4HP PRN #60 tab PRN Reason: Moderate To Severe Pain Carvedilol [Coreg 25mg Tablet] 25 mg PO BID #60 tab levoFLOXacin [Levaquin 750mg tablet] 750 mg PO 1100 #7 tab Continue Lactobacillus acidophilus capsule 10 mg PO DAILY furosemide 20 mg tablet 20 mg PO DAILY montelukast 10 mg tablet 10 mg PO HS multivitamin,tn-yzyl-xchasyir tablet 1 tab PO DAILY omeprazole 20 mg capsule,delayed release 20 mg PO DAILY ezetimibe 10 mg tablet 10 mg PO DAILY simvastatin 40 mg tablet 40 mg PO HS ferrous sulfate 325 mg (65 mg iron) tablet 325 mg PO BID tab citalopram 20 mg tablet 20 mg PO DAILY docusate sodium 250 mg capsule 250 mg PO DAILY PRN cap PRN Reason: Constipation insulin glargine (U-100) 100 unit/mL (3 mL) subcutaneous pen 22 unit SQ HS ml lisinopril 10 mg tablet 10 mg PO DAILY cetirizine 10 mg capsule 10 mg PO DAILY azelastine 137 mcg (0.1 %) nasal spray aerosol 1 spray INTRANASAL BID Insulin Lispro [HumaLOG 100 units/mL 3mL vial ([facility]I)] 0 units SQ ACHS Fluticasone Propionate [Flonase 50mcg nasal spray 16gm] 2 spr NS HS Fluticasone Propionate [Flovent Hfa 110mcg Inhaler] 2 puffs IH BID Discontinued sulfamethoxazole 800 mg-trimethoprim 160 mg tablet 1 tab PO BID tab carvedilol 3.125 mg tablet 3.125 mg PO BID gabapentin 100 mg capsule 100 mg PO BID <Abhijit Griffith - 01/04/19 18:50> - Additional Information Additional Information: Concur with above plan for discharge. <Abhijit Griffith - 01/04/19 18:50>
== END 2019-01-04 14:55 | DRG 253 ==
LOC: 2ND 14:15
PROVIDERS: ADMIT Family Medicine; ATTEND Family Medicine
CPT/HCPCS: 36415; 36569; 37224; 71010; 71020; 71045; 71046; 73630; 73660; 76000; 80048; 80053; 80202; 82962; 83036; 83880; 84132; 85025; 85347; 85651; 86140; 87070; 87077; 87186; 87205; 88305; 88311; 93005; 93306; 93922; 94640; 94761; 99152; 99153; C1725; C1751; C1766; C1769; J1335; J1644; J2405; J2720; J3370; Q9967

== ENCOUNTER → 2019-01-08 20:08 | Outpatient (CLI) | payer MEDICAID, SELFPAY | LOC: LAB 20:18 → LAB.DROPOF 20:26 | PROVIDERS: PCP Family Medicine; Visit Provider Family Medicine | DX: R19.7 Diarrhea, unspecified (principal) | CPT/HCPCS: 87507 ==

== ENCOUNTER → 2019-01-09 14:47 | Outpatient (CLI) | payer MEDICAID, SELFPAY ==
[2019-01-09 15:07] LABS: Adenovirus F 40/41, stool Not Detected (NotDetected); Astrovirus Not Detected (NotDetected); Campylobacter Not Detected (NotDetected); Cryptosporidium Not Detected (NotDetected); Cyclospora Cayetanesis Not Detected (NotDetected); Entamoeba histolytica Not Detected (NotDetected); Enteroaggregative E coli Not Detected (NotDetected); Enteropathogenic E coli Not Detected (NotDetected); Enterotoxigenic E coli Not Detected (NotDetected); Giardia lamblia Not Detected (NotDetected); Norovirus Not Detected (NotDetected); Plesimonas Shigalloides, PCR Not Detected (NotDetected); Rotavirus A Not Detected (NotDetected); Salmonella, PCR Not Detected (NotDetected); Sapovirus Not Detected (NotDetected); Shiga-like toxin E coli Not Detected (NotDetected); Shigella Enterovasive E coli Not Detected (NotDetected); Vibrio Cholerae Not Detected (NotDetected); Vibrio, PCR Not Detected (NotDetected); Yersinia Entercolitica, PCR Not Detected (NotDetected)
[2019-01-09 18:07] LABS: Clostridium Difficile A/B, PCR Detected (NotDetected)
== END ==
PROVIDERS: Visit Provider Family Medicine
DX: R19.7 Diarrhea, unspecified (principal)
CPT/HCPCS: 87506